=== PATIENT | female | born 1940 | race African-American/Black ===

== ENCOUNTER → 2016-08-04 | Outpatient (CLI) | payer MEDICARE, BC | LOC: OD 11:10 | PROVIDERS: ATTEND Physician Assistant Medical | DX: I31.3 Pericardial effusion (noninflammatory) (principal); R06.02 Shortness of breath | CPT/HCPCS: 71020 ==

== ENCOUNTER 2016-08-09 03:22 | Inpatient (IN) | payer MEDICARE, BC ==
[~2016-08-09 03:22] MED LIST: HYDRALAZINE HCL INJ/PF 20 MG/1 ML SDV IV ONE
--- NOTE | 2016-08-09 04:01 | ER Document Report ---
ED General - General Chief Complaint: Chest Pain > 30 Stated Complaint: SHORTNESS OF BREATH Notes: Patient is a 75-year-old female who presents with complaint of pain in her epigastric region. She says it does radiate towards her throat. No nausea. No vomiting. No fevers. She has felt somewhat short of breath. Shortness of breath has been ongoing for a long time. The pain is in her chest and abdomen and is new today. No fevers. No recent infections. No history of coronary disease. She does have a family history of coronary disease. She does have a history of chronic kidney disease. She is diabetic. She does have a history of poorly controlled hypertension. TRAVEL OUTSIDE OF THE [place] IN LAST 30 DAYS: No - Related Data Allergies/Adverse Reactions: Shellfish * Allergy (Severe, Verified 04/10/15 18:06) Anaphylaxis Penicillins Allergy (Unknown, Verified 04/10/15 18:06) Anaphylaxis prednisone [Prednisone] Allergy (Unknown, Verified 04/10/15 18:06) Sulfa (Sulfonamide Antibiotics) Allergy (Unknown, Verified 04/10/15 18:06) Anaphylaxis Past Medical History - Social History Smoking Status: Never Smoker Chew tobacco use (# tins/day): No Frequency of alcohol use: None Drug Abuse: None Family History: Reviewed & Not Pertinent Patient has suicidal ideation: No Patient has homicidal ideation: No - Past Medical History Cardiac Medical History: Reports: Hx Hypercholesterolemia, Hx Hypertension Denies: Hx Heart Murmur Pulmonary Medical History: Reports: Hx Bronchitis - 30 years ago, Hx Sleep Apnea Denies: Hx Respiratory Failure, Hx Tuberculosis Endocrine Medical History: Reports: Hx Diabetes Mellitus Type 2 Renal/ Medical History: Denies: Hx Peritoneal Dialysis GI Medical History: Reports: Hx Gastroesophageal Reflux Disease Musculoskeltal Medical History: Reports Hx Arthritis Psychiatric Medical History: Traumatic Medical History: Reports: Hx Fractures - left neck Past Surgical History: Reports: Hx Abdominal Surgery - colon resection, Hx Orthopedic Surgery - neck - Immunizations Hx Diphtheria, Pertussis, Tetanus Vaccination: No Review of Systems - Review of Systems Notes: My Normal Review Basic REVIEW OF SYSTEMS: CONSTITUTIONAL : Denies fever, chills, or sweats. Denies recent illness. EENT: Denies eye, ear, throat, or mouth pain or symptoms. Denies nasal or sinus congestion. CARDIOVASCULAR: Some chest pain RESPIRATORY: Denies cough, cold, or chest congestion. Denies shortness of breath, difficulty breathing, or wheezing. GASTROINTESTINAL: Upper gastric abdominal pain. Denies nausea, vomiting, or diarrhea. Denies constipation. Last BM: GENITOURINARY: Denies difficulty urinating, painful urination, burning, frequency, or blood in urine. MUSCULOSKELETAL: Denies neck or back pain or joint pain or swelling. SKIN: Denies rash or skin lesions. NEUROLOGICAL: Denies altered mental status or loss of consciousness. Denies headache. Denies weakness or paralysis or loss of use of either side. Denies problems with gait or speech. Denies sensory or motor loss. ALL OTHER SYSTEMS REVIEWED AND NEGATIVE. Physical Exam - Vital signs Vitals: Temp Pulse BP Pulse Ox 97.6 F 92 189/78 H 100 08/09/16 03:25 08/09/16 03:25 08/09/16 03:25 08/09/16 03:25 - Notes Notes: General Appearance: Well nourished, alert, cooperative, no acute distress, mild to moderate obvious discomfort. Vitals: reviewed, See vital signs table. Head: no swelling or tenderness to the head Eyes: PERRL, EOMI, Conjuctiva clear Mouth: No decreasd moisture Neck: Supple, no neck tenderness, No thyromegaly Lungs: No wheezing, No rales, No rhonci, No accessory muscle use, good air exchange bilaterally. Heart: Normal rate, Regular rythm, No murmur, no rub Abdomen: Normal BS, soft, No rigidity, mild abdominal tenderness to palpation, No guarding, no rebound, no abdominal masses, no organomegaly Extremities: strength 5/5 in all extremities, good pulses in all extremities, no swelling or tenderness in the extremities, no edema. Skin: warm, dry, appropriate color, no rash Neuro: speech clear, oriented x 3, normal affect, responds appropriately to questions. Course - Vital Signs Vital signs: Temp Pulse Resp BP Pulse Ox 97.6 F 92 17 149/66 H 95 08/09/16 03:25 08/09/16 03:25 08/09/16 05:44 08/09/16 05:44 08/09/16 05:44 - Laboratory Result Diagrams: 08/09/16 04:20 08/09/16 04:20 Laboratory results interpreted by me: 08/09/16 08/09/16 08/09/16 04:20 04:20 04:20 Hgb 10.3 L Hct 32.9 L MCHC 31.4 L RDW 17.2 H Seg Neutrophils % 86.2 H Lymphocytes % 9.2 L Monocytes % 2.9 L Potassium 5.2 H Chloride 114 H Carbon Dioxide 15 L BUN 39 H Creatinine 2.71 H Est GFR ( Amer) 21 L Est GFR (Non-Af Amer) 17 L Hemoglobin A1c % 6.3 H Creatine Kinase 142 H - EKG Interpretation by Me Additional EKG results interpreted by me: 08/09/16 04:14 EKG is reviewed and interpreted by me. EKG shows normal sinus rhythm with rate of [address] segment elevation or depression. No new T wave inversions. AL interval, QRS duration, QTC of vitals are within normal range. Old EKG available for comparison is from 04/10/2015. - Transfer of Care Notes: 08/09/16 05:03 Patient says with the nitro paste her pain is almost completely gone. She is feeling improved. 08/09/16 05:35 I did speak with Dr. Delatorre, finished cloth checker who has evaluated the patient in the past. He does not remember. Did a stress test on or not. He says he cannot access the records currently to be able tell me this. He recommends serial enzymes and workup until they can figure out whether or not she has actually had a stress test. He says if all that is found to be negative then he can probably follow up in the office. She does have hypertension. This may be playing a role in her chest pain. She says her hypertension is poorly controlled and this is one reason why she's been referred to Dr. Delatorre. I did give her nitroglycerin here. A notch her did help reduce her pressure some and her pain is improved significantly. Her EKG does not show any acute concerning findings. Her initial cardiac enzyme is negative. I did speak with the hospitalist, Dr. Cuevas, who agrees to accept the patient on behalf of her primary care doctor, Dr. Atkins. 08/09/16 06:27 I did reevaluate the patient and now she states she had some pain going to her back. I did check blood pressures in both upper extremities and there are within 10 systolic of each other. Pulses are equal. I do not suspect an aortic dissection; however, I felt it was appropriate to call the hospitalist just to make him aware that she does have some pain radiating to her back that she did not mention before. He does request that we just obtained a CT scan. Unable to do with contrast. CT scan was read and was negative for evidence of gross dissection. Because she does have a negative CT scan and has normal pulses in all 4 extremities and normal bilateral blood pressures I think aortic dissection is highly unlikely. I did call and speak with the hospitalist who agrees. She does have a pericardial effusion. She also had a similar pericardial fusion in March of last year on her Ct scan. This is most likely what is being followed with her echocardiograms by Dr. Delatorre. She has no evidence of cardiac tamponade on exam. Her pulse pressure is normal. Hospitalist agrees to admit to a Telemetry bed. Discharge - Discharge Clinical Impression: Hypertensive urgency Chest pain Qualifiers: Chest pain type: unspecified Qualified Code(s): R07.9 - Chest pain, unspecified Condition: Stable Disposition: ADMITTED OBSERVATION Admitting Provider: Milly Unit Admitted: Telemetry
[2016-08-09] MEDS ORDERED: MAG HYDROX/AL HYDROX/SIMETH SUSP 30 ML UDCUP PO ONE (04:10)
[2016-08-09] MEDS ORDERED: LIDOCAINE 2% VISCOUS SOLN 20 ML UDCUP PO ONE (04:10)
[2016-08-09] MEDS ORDERED: NITROGLYCERIN 2% OINTMENT 1 GM PACKET TP ONE (04:10)
[2016-08-09] MEDS ORDERED: METOCLOPRAMIDE HCL ORAL SOLN 10 MG/10 ML UDCUP PO ONE (04:10)
[2016-08-09 04:38] LABS: ABSOLUTE BASOPHILS # (AUTO) 0.1 10^3/uL (0.0-0.2); ABSOLUTE LYMPHOCYTES (AUTO) 0.7 10^3/uL (0.5-4.7); ABSOLUTE MONOCYTES (AUTO) 0.2 10^3/uL (0.1-1.4); ABSOLUTE NEUT (AUTO) 6.3 10^3/uL (1.7-8.2); BASOPHILS % (AUTO) 1.4 % (0-2); EOSINOPHILS % (AUTO) 0.3 % (0-6); HEMATOCRIT 32.9 % (36.0-47.0); HEMOGLOBIN 10.3 g/dL (12.0-15.5); LYMPHOCYTES % (AUTO) 9.2 % (13-45); MEAN CORPUSCULAR HEMOGLOBIN 27.1 pg (27.0-33.4); MEAN CORPUSCULAR HGB CONC 31.4 g/dL (32.0-36.0); MEAN CORPUSCULAR VOLUME 86 fl (80-97); MONOCYTES % (AUTO) 2.9 % (3-13); RED BLOOD COUNT 3.81 10^6/uL (3.72-5.28); RED CELL DISTRIBUTION WIDTH 17.2 % (11.5-14.0); SEGMENTED NEUTROPHILS % (AUTO) 86.2 % (42-78); WHITE BLOOD COUNT 7.3 10^3/uL (4.0-10.5)
[2016-08-09 04:57] LABS: ALANINE AMINOTRANSFERASE 27 U/L (9-52); ALBUMIN 4.2 g/dL (3.5-5.0); ALKALINE PHOSPHATASE 90 U/L (38-126); ANION GAP 16 (5-19); ASPARTATE AMINO TRANSFERASE 22 U/L (14-36); BILIRUBIN,TOTAL 0.6 mg/dL (0.2-1.3); BLOOD UREA NITROGEN 39 mg/dL (7-20); CALCIUM 9.5 mg/dL (8.4-10.2); CARBON DIOXIDE 15 mmol/L (22-30); CHLORIDE 114 mmol/L (98-107); CREATINE KINASE 142 U/L (30-135); CREATININE RESULT 2.71 mg/dL (0.52-1.25); GLUCOSE 109 mg/dL (75-110); POTASSIUM 5.2 mmol/L (3.6-5.0); SODIUM 144.9 mmol/L (137-145); TOTAL PROTEIN 7.1 g/dL (6.3-8.2)
[2016-08-09] MEDS ORDERED: MORPHINE SULFATE 10 MG/ML INJ IV ONE ×2 (05:03→05:47)
[2016-08-09] MEDS ORDERED: ASPIRIN 325 MG TABLET PO ONE (05:14)
[2016-08-09 05:21] LABS: TROPONIN I < 0.012 ng/mL
[2016-08-09] MEDS ORDERED: DEXTROSE 40% GEL 15 GM TUBE PO PRN ×4 (05:37→05:47)
[2016-08-09] MEDS ORDERED: DEXTROSE 50%-WATER 25 GM/50 ML DISP.SYRIN IV PRN ×3 (05:37→05:47)
[2016-08-09] MEDS ORDERED: GLUCAGON,HUMAN RECOMB 1 MG INJ IM PRN (05:37)
[2016-08-09] MEDS ORDERED: ACETAMINOPHEN 325 MG TABLET PO PRN (05:38)
[2016-08-09] MEDS ORDERED: OMEPRAZOLE 40 MG PO SCH (05:45)
[2016-08-09] MEDS ORDERED: 1/2 NORMAL SALINE 1,000 ML IV ONE (05:45)
[2016-08-09] MEDS ORDERED: KETOROLAC TROMETHAMINE INJ/PF 30 MG/1 ML SDV IV PRN (06:23)
--- NOTE | 2016-08-09 07:31 | PDOC H&P ---
History of Present Illness Admission Date/PCP: 08/09/16 06:19 Patient complains of: Chest and abdominal pain with nausea History of Present Illness: SOPHY GOMEZ is a 75 year old female with a complex past medical history of stage IV chronic kidney disease, chronic pericardial effusion, diabetes, hiatal hernia, hypertension and obstructive sleep apnea. Who presents the emergency room 1 hour after being awoken from sleep with abdominal pain that radiates to the back and to the chest, not associated with shortness of breath diaphoresis or palpitations but had urge to defecate nausea with vomiting of gastric content only. She states her GERD has been well controlled though constipation has been chronic. Denying new medications. Admits to recent cardiac stress test within the month but is unaware of results. Workup in the emergency room finds hypertensive urgency with the systolic blood pressure of 200, a CT without contrast shows a persistent moderate pericardial effusion, hiatal hernia and moderate fecal retention without evidence of aortic dissection. Past Medical History Cardiac Medical History: Reports: Hyperlipidema, Hypertension Denies: Heart Murmur Pulmonary Medical History: Reports: Bronchitis - 30 years ago, Sleep Apnea Denies: Respiratory Failure, Tuberculosis Endocrine Medical History: Reports: Diabetes Mellitus Type 2 Malignancy Medical History: Reports: Colorectal Cancer GI Medical History: Reports: Gastroesophageal Reflux Disease Musculoskeltal Medical History: Reports: Arthritis Psychiatric Medical History: Hematology: Reports: Anemia Denies: Hemophilia, Sickle Cell Disease Past Surgical History Past Surgical History: Reports: Orthopedic Surgery - neck, Other - Partial colon resection 2013 Denies: Amputation Social History Information Source: Patient Lives with: Family Smoking Status: Never Smoker Frequency of Alcohol Use: None Hx Recreational Drug Use: No Hx Prescription Drug Abuse: No - Advance Directive Resuscitation Status: Full Code Family History Family History: DM, Hypertension Parental Family History Reviewed: Yes Children Family History Reviewed: Yes Sibling(s) Family History Reviewed.: Yes Medication/Allergy Home Medications: Clonidine HCl [Catapres 0.1 mg Tablet] 0.05 mg PO TID 06/09/11 Glipizide [Glipizide ER] 5 mg PO DAILY 06/09/11 Hydrochlorothiazide [Hydrodiuril 25 mg Tablet] 25 mg PO QAM 06/09/11 Vitamin B-12 5,000 units PO DAILY 06/09/11 D-1000 Plus 5,000 units PO DAILY 06/16/11 Omeprazole [Prilosec 20 mg Capsule] 40 mg PO DAILY 11/18/12 Ascorbic Acid [Vitamin C] 1 tab PO DAILY 03/20/14 Ferrous Sulfate [Feosol] 325 mg PO DAILY 03/20/14 Nifedipine [Adalat CC 90 mg Tablet] 90 mg PO BID #60 tablet.sa 03/22/14 Atorvastatin Calcium 10 mg PO DAILY 08/09/16 Doxazosin Mesylate [Doxazosin Mesylate] 2 mg PO ACHS 08/09/16 Hydralazine HCl 50 mg PO TID 08/09/16 Allergies/Adverse Reactions: Shellfish * Allergy (Severe, Verified 04/10/15 18:06) Anaphylaxis Penicillins Allergy (Unknown, Verified 04/10/15 18:06) Anaphylaxis prednisone [Prednisone] Allergy (Unknown, Verified 04/10/15 18:06) Sulfa (Sulfonamide Antibiotics) Allergy (Unknown, Verified 04/10/15 18:06) Anaphylaxis Review of Systems Constitutional: ABSENT: anorexia, chills, fatigue, fever(s), headache(s), night sweats, weakness Eyes: ABSENT: visual disturbances Ears: ABSENT: hearing changes Cardiovascular: ABSENT: chest pain, dyspnea on exertion, edema, orthropnea, palpitations Respiratory: ABSENT: cough, hemoptysis Gastrointestinal: PRESENT: abdominal pain, bloating, constipation, heartburn, nausea. ABSENT: coffee ground emesis, dysphagia, hematemesis Genitourinary: ABSENT: dysuria, hematuria Musculoskeletal: ABSENT: joint swelling Integumentary: ABSENT: rash, wounds Neurological: ABSENT: abnormal gait, abnormal speech, confusion, dizziness, focal weakness, syncope Psychiatric: ABSENT: anxiety, depression, homidical ideation, suicidal ideation Endocrine: ABSENT: cold intolerance, heat intolerance, polydipsia, polyuria Hematologic/Lymphatic: ABSENT: easy bleeding, easy bruising Physical Exam Vital Signs: Temp Pulse Resp BP Pulse Ox 97.6 F 92 17 149/66 H 95 08/09/16 03:25 08/09/16 03:25 08/09/16 05:44 08/09/16 05:44 08/09/16 05:44 General appearance: PRESENT: cooperative, mild distress. ABSENT: disheveled, hard of hearing, morbidly obese, obese, severe distress Head exam: PRESENT: atraumatic, normocephalic Eye exam: PRESENT: conjunctiva pink, EOMI, PERRLA. ABSENT: scleral icterus Ear exam: PRESENT: normal external ear exam Mouth exam: PRESENT: moist, tongue midline Neck exam: ABSENT: carotid bruit, JVD, lymphadenopathy, thyromegaly Respiratory exam: PRESENT: clear to auscultation jose. ABSENT: rales, rhonchi, wheezes Cardiovascular exam: PRESENT: RRR. ABSENT: diastolic murmur, rubs, systolic murmur Pulses: PRESENT: normal dorsalis pedis pul Vascular exam: PRESENT: normal capillary refill GI/Abdominal exam: PRESENT: distended, hyperactive bowel sounds, soft. ABSENT: ascites, organolmegaly Rectal exam: PRESENT: deferred Extremities exam: PRESENT: +1 edema Neurological exam: PRESENT: alert, awake, oriented to person, oriented to place , oriented to time, oriented to situation, CN II-XII grossly intact. ABSENT: motor sensory deficit Psychiatric exam: PRESENT: appropriate affect, normal mood. ABSENT: homicidal ideation, suicidal ideation Skin exam: PRESENT: dry, intact, warm. ABSENT: cyanosis, rash Results Impressions: Chest X-Ray 08/09/16 04:11 IMPRESSION: Cardiomegaly. No acute infiltrates. Other findings as noted above Abdomen/Pelvis CT 08/09/16 05:50 IMPRESSION: 1. GALLSTONES. 2. COLONIC DIVERTICULOSIS. NO CT FINDINGS OF ACUTE DIVERTICULITIS. 3. OTHER CHRONIC FINDINGS ABOVE. NO OTHER SIGNIFICANT OR ACUTE PROCESS IN THE ABDOMEN OR PELVIS. Chest CT 08/09/16 05:50 IMPRESSION: SCATTERED ATELECTASIS/SCARRING. MODERATE PERICARDIAL EFFUSION. HIATAL HERNIA. NO ACUTE FINDING ON NON-CONTRASTED CHEST CT. Assessment & Plan - Diagnosis (1) Hypertensive urgency Is this a current diagnosis for this admission?: YesPlan: Systolic pressure greater than 200 has responded well to Nitropaste and clonidine, continue when necessary hydralazine, symptomatically management and home medication regiment. No evidence of acute congestive heart failure on imaging. (2) Chest pain Qualifiers: Chest pain type: unspecified Qualified Code(s): R07.9 - Chest pain, unspecified Is this a current diagnosis for this admission?: YesPlan: Unclear cause as she has several reasons for chest and abdominal pain pain including possible pericarditis, large hiatal hernia, hypertensive urgency with coronary artery disease equivalents, will obtain serial cardiac enzymes, obtain recent outpatient cardiac stress test. Optimize blood pressure, GI cocktail, lactulose and symptomatically management. (3) Pericardial effusion Plan: No EKG changes, JVD, normal pulse pressure appearing chronic though will Evaluate ESR, and obtain cardiology consult (4) Hiatal hernia Plan: Proton pump inhibitor and symptomatically management (5) Constipation Is this a current diagnosis for this admission?: YesPlan: Patient admits this is chronic and challenging to control, encourage by mouth fluids, Trial mineral oil enema and lactulose and reevaluation. (6) Hyperkalemia Plan: No peak T waves possibly secondary to RTA, trial Lactulose and enema with reevaluation chemistry (7) Renal tubular acidosis, type IV Plan: Urinalysis ordered and pending, given metabolic acidosis and stage IV chronic kidney disease with dialysis planned will obtain nephrology consult (8) Diabetes Qualifiers: Diabetes mellitus type: type 2 Is this a current diagnosis for this admission?: YesPlan: Appears well controlled will obtain an A1c and continue sliding scale insulin when necessary - Time Time Spent: 50 to 70 Minutes
[2016-08-09] MEDS ORDERED: CLONIDINE HCL 0.1 MG TABLET PO ONE (07:45)
[2016-08-09] MEDS ORDERED: LACTULOSE SYRUP 20 GM/30 ML UDCUP PO ONE (07:45)
[2016-08-09] MEDS ORDERED: MINERAL OIL ENEMA 133 ML PR ONE (07:45)
[2016-08-09 07:52] LABS: TROPONIN I < 0.012 ng/mL
[2016-08-09 08:04] LABS: APPEARANCE,URINE CLEAR; BILIRUBIN,URINE NEGATIVE (NEGATIVE); GLUCOSE, URINE NEGATIVE (NEGATIVE); KETONES,URINE NEGATIVE (NEGATIVE); LEUKOCYTE ESTERASE,URINE NEGATIVE (NEGATIVE); NITRITE,URINE NEGATIVE (NEGATIVE); PROTEIN,URINE >=500 mg/dL (NEGATIVE); URINE SPECIFIC GRAVITY 1.009; UROBILINOGEN,URINE NEGATIVE mg/dL (<2.0)
[2016-08-09] MEDS ORDERED: 1/2 NORMAL SALINE 1,000 ML IV PRN (08:49)
--- NOTE | 2016-08-09 09:26 | EKG REPORT ---
SEVERITY:- BORDERLINE ECG - SINUS RHYTHM LOW VOLTAGE IN FRONTAL LEADS BORDERLINE R WAVE PROGRESSION, ANTERIOR LEADS : Confirmed by: Rosalba Delatorre 09-Aug-2016 09:26:01
[2016-08-09] MEDS: HEPARIN SOD (PORCINE) 5,000 UNIT/ML 1 ML SYRINGE SUBCUT SCH ×3 (10:14→21:08)
[2016-08-09] MEDS: LANSOPRAZOLE 30 MG TAB.RAP.DR PO SCH (10:21)
[2016-08-09] MEDS: NIFEDIPINE 30 MG TAB.ER.24 PO SCH ×2 (10:22→21:10)
[2016-08-09] MEDS ORDERED: DOXAZOSIN MESYLATE 2 MG TABLET PO SCH ×2 (11:00→22:00)
--- NOTE | 2016-08-09 12:34 | PDOC CONSULTATION ---
Consultation Consult Date: 08/09/16 Attending physician:: VIOLETTE FISCHER Consult reason:: Chest pain History of Present Illness Admission Date/PCP: 08/09/16 08:58 Patient complains of: Chest pain History of Present Illness: SOPHY GOMEZ is a 75 year old female with a complex past medical history of stage IV chronic kidney disease, chronic pericardial effusion, diabetes, hiatal hernia, hypertension and obstructive sleep apnea. Who presents the emergency room 1 hour after being awoken from sleep with abdominal pain that radiates to the back and to the chest, not associated with shortness of breath diaphoresis or palpitations but had urge to defecate, associated nausea with vomiting of gastric content only. She states her GERD has been well controlled though constipation has been chronic. Denying new medications. Admits to recent cardiac stress test within the month but is unaware of results. Workup in the emergency room finds hypertensive urgency with the systolic blood pressure of 200, a CT without contrast shows a persistent moderate pericardial effusion, hiatal hernia and moderate fecal retention without evidence of aortic dissection. This history was reviewed, supplemented and agree with the above. Patient did have a recent nuclear stress test which was negative for any significant ischemia. Patient also had a recent 2-D echocardiogram which showed normal LVEF, moderate LVH, grade 2 diastolic dysfunction, mild mitral and trace aortic incompetence. It also showed small circumferential pericardial effusion without any evidence of tamponade. Past Medical History Cardiac Medical History: Reports: Hyperlipidema, Hypertension Denies: Heart Murmur Pulmonary Medical History: Reports: Bronchitis - 30 years ago, Sleep Apnea Denies: Respiratory Failure, Tuberculosis Endocrine Medical History: Reports: Diabetes Mellitus Type 2 Malignancy Medical History: Reports: Colorectal Cancer GI Medical History: Reports: Gastroesophageal Reflux Disease Musculoskeltal Medical History: Reports: Arthritis Psychiatric Medical History: Denies: Depression Hematology: Reports: Anemia Denies: Hemophilia, Sickle Cell Disease Past Surgical History Past Surgical History: Reports: Orthopedic Surgery - neck, Other - Partial colon resection 2013 Denies: Amputation Social History Information Source: Patient Lives with: Family Smoking Status: Never Smoker Frequency of Alcohol Use: None Hx Recreational Drug Use: No Hx Prescription Drug Abuse: No - Advance Directive Resuscitation Status: Full Code Family History Family History: DM, Hypertension Parental Family History Reviewed: Yes Children Family History Reviewed: Yes Sibling(s) Family History Reviewed.: Yes - Negative for premature coronary artery disease or sudden cardiac in the family amongst first degree relatives. Medication/Allergy Home Medications: Atorvastatin Calcium [Lipitor 10 mg Tablet] 10 mg PO DAILY 08/09/16 Clonidine HCl [Catapres 0.1 mg Tablet] 0.1 mg PO DAILY 08/09/16 Doxazosin Mesylate [Cardura 2 mg Tablet] 2 mg PO QHS 08/09/16 Hydralazine HCl [Apresoline 50 mg Tablet] 50 mg PO Q8 08/09/16 Nifedipine [Procardia XL 30 mg Tablet] 90 mg PO Q12 08/09/16 Omeprazole 20 mg PO DAILY 08/09/16 Sodium Bicarbonate [Sodium Bicarbonate 650 mg Tablet] 650 mg PO DAILY 08/09/16 Allergies/Adverse Reactions: Shellfish * Allergy (Severe, Verified 04/10/15 18:06) Anaphylaxis Penicillins Allergy (Unknown, Verified 04/10/15 18:06) Anaphylaxis prednisone [Prednisone] Allergy (Unknown, Verified 04/10/15 18:06) Sulfa (Sulfonamide Antibiotics) Allergy (Unknown, Verified 04/10/15 18:06) Anaphylaxis Review of Systems Review of Systems: Please see history of present illness and past medical history as wall. Constitutional: No fever or chills reported. Head : No recent chronic headaches, recent head injury. Eyes: No recent eye pain, diplopia, redness, discharge, acute visual changes. Ears: No recent chronic ear pain, acute hearing loss, ear discharge. Oral cavity: No recent ulcerations, bleeding, oral cavity discomfort. Neck: No recent acute neck pain reported. Hematologic: No recent easy bruising or bleeding or hematologic malignancy reported. Lymphatic: No recent lymphatic malignancy, chronic lymphadenopathy reported yet Cardiovascular system review: See history of present illness. Chest discomfort as above. No sustained palpitations, recent syncope or near syncope. Respiratory system review: No recent chronic cough, hemoptysis, blood clots in the lungs reported. Mild Shortness of breath on exertion Gastrointestinal system review: Positive for epigastric and upper abdominal discomfort off and on but no hematemesis, melena, recent change in bowel habits. Noted nausea and vomiting. Genitourinary system review: No recent acute or chronic hematuria, flank pain, UTI etc. reported. History of renal failure and chronic kidney disease. Skin system review: Negative for any recent abnormal bruising, no rash, no pruritus reported. Neurologic: No prior history of strokes, mini strokes, seizure disorder. Psychologic: No history of major psychosis or depression reported. Musculoskeletal: Minor aches and pains reported. No acute joint swelling reported. Endocrine: No recent polyuria, polydipsia, recent heat or cold intolerance. Physical Exam Vital Signs: Temp Pulse Resp BP Pulse Ox 98.6 F 88 18 179/68 H 100 08/09/16 09:07 08/09/16 09:10 08/09/16 09:07 08/09/16 09:10 08/09/16 09:07 Intake & Output 08/08/16 08/09/16 08/10/16 06:59 06:59 06:59 Weight 76.9 kg Exam: GEN: NAD, patient alert oriented x3. Appearance and grooming WNL HEENT : Eyes: GLORIA, Ears: No significant abnormalities, Nose: No significant abnormalities. normocephalic atraumatic. Flat midface (-), Receding chin (-) ORAL : Mallampati class III, highly arched palate (-) Tonsils: Not enlarged. NECK: no thyromegaly, no masses, trachea is central, JVD is not elevated, carotids are 2+ with bruit (-) RESP: lungs clear to auscultation bilaterally, no rales, wheezes or rhonchi., nonlabored, no use of accessory muscles of respiration CV: NL S1 and S2. 2/6 ejection systolic murmur noted in the aortic area and left sternal border. 1/6 pansystolic murmur noted at the apex. no S3, no S4 noted. No rub noted., gallops, rubs, clicks GI: abd NT to palpation, no masses, bowel sounds present, no guarding or rigidity noted. EXT: no clubbing, (-) cyanosis, edema (-), perpheral pulses diminished (+) MUSC/SKEL: no acute joint swelling noted. Muscle strength is generally intact. NEURO: no tremors. no significant focal neurological deficits are noted., sensation grossly intact, AO x 3 PSYCH: NL mood and affect. judgment and insight noted to be intact SKIN: No significant rashes noted. No ulcerations noted. Results EKG Comments: Sinus rhythm, low voltage QRS complex frontal lead, nonprogression of R-wave anterior precordial lead. No acute ST segment changes noted. Impressions: Chest X-Ray 08/09/16 04:11 IMPRESSION: Cardiomegaly. No acute infiltrates. Other findings as noted above Abdomen/Pelvis CT 08/09/16 05:50 IMPRESSION: 1. GALLSTONES. 2. COLONIC DIVERTICULOSIS. NO CT FINDINGS OF ACUTE DIVERTICULITIS. 3. OTHER CHRONIC FINDINGS ABOVE. NO OTHER SIGNIFICANT OR ACUTE PROCESS IN THE ABDOMEN OR PELVIS. Chest CT 08/09/16 05:50 IMPRESSION: SCATTERED ATELECTASIS/SCARRING. MODERATE PERICARDIAL EFFUSION. HIATAL HERNIA. NO ACUTE FINDING ON NON-CONTRASTED CHEST CT. Assessment & Plan - Diagnosis (1) Chest pain Qualifiers: Chest pain type: unspecified Qualified Code(s): R07.9 - Chest pain, unspecified Is this a current diagnosis for this admission?: Yes (2) Hypertensive urgency Is this a current diagnosis for this admission?: Yes (3) Pericardial effusion Is this a current diagnosis for this admission?: Yes (4) Hyperkalemia Is this a current diagnosis for this admission?: Yes - Notes Notes: Chest pain was recently evaluated with a nuclear stress test and was noted to be negative. Agree with VT rule out protocol. Will cycle cardiac enzymes and EKGs. If patient remains stable without any significant cardiac enzyme elevation or EKG changes, patient could be discharged with regular follow-up. Chest pain possibly related to atelectasis. Hypertension with hypertensive urgency: Agree with antihypertensive regimen. Will consider optimizing it. Sleep apnea syndrome: Patient was noted to have severe obstructive sleep apnea on recent sleep study. Patient scheduled for a titration study. This should help with control of blood pressure. Pericardial effusion: Clinically no evidence of tamponade. Could be related to chronic renal failure. Patient has a follow-up echocardiogram scheduled in the office. Hyperkalemia: Patient will benefit from low potassium and renal diet. Hopefully this can be taken care off through Kayexalate or other new medication , nephrology is following the patient. Chronic kidney disease: Probably stage IV. Patient being followed by lipcoat sprayer. - Time Time Spent: 30 to 50 Minutes - CODE STATUS was discussed, patient remains full code. Surrogate decision-maker unchanged. Multiple medical problems were addressed.More than 50% of the time spent coordinating care, discussing management plans with involved caregivers. Management plans discussed with involved personnels. Medical decision making was of moderate complexity.
--- NOTE | 2016-08-09 13:02 | PDOC PROGRESS REPORT ---
Subjective Progress Note for:: 08/09/16 Subjective:: The patient seen this morning on rounds around 8:30. History obtained from the patient and her son. Apparently the patient was woken up last night with epigastric pain and severe retrosternal burning. She had an episode of diarrhea and then started vomiting. Being concerned about those symptoms she was taken to the emergency room where she was evaluated and a consideration has been made for possible chest pain. She had nitroglycerin placed on her chest and had a CT of the chest and CT of the abdomen. Physical Exam Vital Signs: Temp Pulse Resp BP Pulse Ox 98.9 F 86 16 170/55 H 99 08/09/16 11:14 08/09/16 11:14 08/09/16 11:14 08/09/16 11:14 08/09/16 11:14 Intake & Output 08/08/16 08/09/16 08/10/16 06:59 06:59 06:59 Weight 76.9 kg General appearance: PRESENT: mild distress Head exam: PRESENT: atraumatic Eye exam: PRESENT: conjunctival injection Neck exam: ABSENT: carotid bruit Respiratory exam: PRESENT: rhonchi Cardiovascular exam: PRESENT: +S1, +S2 Pulses: PRESENT: +1 pedal pulses bilateral Vascular exam: PRESENT: normal capillary refill GI/Abdominal exam: PRESENT: Mcwilliams's sign, tenderness Additonal comments: Significant tenderness on palpation in the epigastrium and right upper quadrant with a positive Mcwilliams sign Extremities exam: PRESENT: full ROM Musculoskeletal exam: PRESENT: ambulatory Neurological exam: PRESENT: alert, awake, oriented to time, oriented to situation Psychiatric exam: PRESENT: anxious Results Impressions: Chest X-Ray 08/09/16 04:11 IMPRESSION: Cardiomegaly. No acute infiltrates. Other findings as noted above Abdomen/Pelvis CT 08/09/16 05:50 IMPRESSION: 1. GALLSTONES. 2. COLONIC DIVERTICULOSIS. NO CT FINDINGS OF ACUTE DIVERTICULITIS. 3. OTHER CHRONIC FINDINGS ABOVE. NO OTHER SIGNIFICANT OR ACUTE PROCESS IN THE ABDOMEN OR PELVIS. Chest CT 08/09/16 05:50 IMPRESSION: SCATTERED ATELECTASIS/SCARRING. MODERATE PERICARDIAL EFFUSION. HIATAL HERNIA. NO ACUTE FINDING ON NON-CONTRASTED CHEST CT. Assessment & Plan - Diagnosis (1) Chest pain Qualifiers: Chest pain type: unspecified Qualified Code(s): R07.9 - Chest pain, unspecified Is this a current diagnosis for this admission?: YesPlan: Most probably noncardiac. We'll complete his series of enzymes (2) Cholelithiasis Qualifiers: Cholelithiasis location: gallbladder Cholecystitis presence: with cholecystitis Is this a current diagnosis for this admission?: YesPlan: We'll place patient on nothing by mouth status versus clear liquids. We'll consult surgery. The consideration for and right upper quadrant ultrasound has been done (3) Acute cholecystitis due to biliary calculus Is this a current diagnosis for this admission?: YesPlan: We'll place patient on nothing by mouth status and start antibiotics (4) Renal failure (ARF), acute on chronic Is this a current diagnosis for this admission?: YesPlan: We'll start IV fluids and see if the numbers improved with hydration (5) Diabetes Qualifiers: Diabetes mellitus type: type 2 Diabetes mellitus complication status: with kidney complications Chronic kidney disease stage: stage 3 (moderate) Is this a current diagnosis for this admission?: YesPlan: We will obtain Accu-Cheks and cover with insulin. The patient had a acetone breath. We will consider obtaining acetone levels.
[2016-08-09] MEDS: INSULIN LISPRO 100 UNIT/ML 3 ML VIAL SUBCUT PRN ×2 (13:05→17:18)
[2016-08-09] MEDS: CLONIDINE HCL 0.1 MG TABLET PO SCH ×2 (13:06→21:10)
[2016-08-09] MEDS: HYDRALAZINE HCL 50 MG TABLET PO SCH ×2 (13:06→21:09)
--- NOTE | 2016-08-09 13:16 | PDOC CONSULTATION ---
Consultation Consult Date: 08/09/16 Consult reason:: CKD stage IV with chest and abdominal pain History of Present Illness Admission Date/PCP: 08/09/16 08:58 History of Present Illness: SOPHY GOMEZ is a 75 year old female with a complex past medical history of stage IV chronic kidney disease with a base creatinine of 2.5-2.8, chronic pericardial effusion, diabetes, hiatal hernia, hypertension and obstructive sleep apnea , presented to the emergency room 1 hour after being awoken from sleep with chest and abdominal pain that radiates to the back and to the throat , not associated with shortness of breath diaphoresis or palpitations but had urge to defecate, associated nausea with vomiting. She states that the pain was constant with no precipitating or relieving factors even though she latest states that breathing heart was making it worse. The pain is only relieved 2-3 hours since its inception after she was treated with nitroglycerin patch and narcotic pain medications according to the patient. Currently patient is quite comfortable and the pain is gone. She states her GERD has been well controlled though constipation has been chronic. Denying new medications. Admits to recent cardiac stress test within the month but is unaware of results. Workup in the emergency room finds hypertensive urgency with the systolic blood pressure of 200, a CT without contrast shows a persistent moderate pericardial effusion, hiatal hernia and moderate fecal retention without evidence of aortic dissection. Dr. Delatorre, central station operator is seeing the patient. Patient did have a recent nuclear stress test which was negative for any significant ischemia. Patient also had a recent 2-D echocardiogram which showed normal LVEF, moderate LVH, grade 2 diastolic dysfunction, mild mitral and trace aortic incompetence. It also showed small circumferential pericardial effusion without any evidence of tamponade. Past Medical History Cardiac Medical History: Reports: Hyperlipidemia, Hypertension-primary Denies: Heart Murmur Pulmonary Medical History: Reports: Bronchitis - 30 years ago, Sleep Apnea Denies: Respiratory Failure, Tuberculosis Endocrine Medical History: Reports: Diabetes Mellitus Type 2 Renal/ Medical History: Reports: Chronic Kidney Disease Stage IV - With base creatinine of 2.5-2.8. Denies: Benign Prostatic Hyperplasia Malignancy Medical History: Reports: Colorectal Cancer GI Medical History: Reports: Gastroesophageal Reflux Disease Musculoskeltal Medical History: Reports: Arthritis Denies: Rheumatoid Arthritis, Systemic Lupus Erythematosus Psychiatric Medical History: Denies: Depression Past Surgical History Past Surgical History: Reports: Orthopedic Surgery - neck, Other - Partial colon resection 2014 Social History Lives with: Family Smoking Status: Never Smoker Frequency of Alcohol Use: None Hx Recreational Drug Use: No Hx Prescription Drug Abuse: No - Advance Directive Resuscitation Status: Full Code Family History Parental Family History Reviewed: Yes - Negative for ESRD and bands. Children Family History Reviewed: No Sibling(s) Family History Reviewed.: No Medication/Allergy Home Medications: Atorvastatin Calcium [Lipitor 10 mg Tablet] 10 mg PO DAILY 08/09/16 Clonidine HCl [Catapres 0.1 mg Tablet] 0.1 mg PO DAILY 08/09/16 Doxazosin Mesylate [Cardura 2 mg Tablet] 2 mg PO QHS 08/09/16 Hydralazine HCl [Apresoline 50 mg Tablet] 50 mg PO Q8 08/09/16 Nifedipine [Procardia XL 30 mg Tablet] 90 mg PO Q12 08/09/16 Omeprazole 20 mg PO DAILY 08/09/16 Sodium Bicarbonate [Sodium Bicarbonate 650 mg Tablet] 650 mg PO DAILY 08/09/16 Allergies/Adverse Reactions: Shellfish * Allergy (Severe, Verified 04/10/15 18:06) Anaphylaxis Penicillins Allergy (Unknown, Verified 04/10/15 18:06) Anaphylaxis prednisone [Prednisone] Allergy (Unknown, Verified 04/10/15 18:06) Sulfa (Sulfonamide Antibiotics) Allergy (Unknown, Verified 04/10/15 18:06) Anaphylaxis Review of Systems Review of Systems: Constitutional: PRESENT: as per HPI. ABSENT: chills, fever(s), headache(s), weight gain, weight loss Eyes: ABSENT: visual disturbances Ears: ABSENT: hearing changes Cardiovascular: ABSENT: dyspnea on exertion, edema, orthropnea, palpitations Respiratory: ABSENT: cough, hemoptysis Gastrointestinal: ABSENT: hematemesis, hematochezia, Genitourinary: ABSENT: dysuria, hematuria Musculoskeletal: ABSENT: joint swelling Integumentary: ABSENT: rash, wounds Neurological: ABSENT: abnormal gait, abnormal speech, confusion, dizziness, focal weakness, syncope Psychiatric: ABSENT: anxiety, depression, homicidal ideation, suicidal ideation Endocrine: ABSENT: cold intolerance, heat intolerance, menstrual abnormalities, polydipsia, polyuria Hematologic/Lymphatic: ABSENT: easy bleeding, easy bruising, lymphadenopathy Physical Exam Vital Signs: Temp Pulse Resp BP Pulse Ox 98.9 F 86 16 170/55 H 99 08/09/16 11:14 08/09/16 11:14 08/09/16 11:14 08/09/16 11:14 08/09/16 11:14 Intake & Output 08/08/16 08/09/16 08/10/16 06:59 06:59 06:59 Weight 76.9 kg General appearance: PRESENT: no acute distress Eye exam: PRESENT: EOMI, PERRLA. ABSENT: nystagmus Mouth exam: PRESENT: moist, neck supple Neck exam: ABSENT: lymphadenopathy, meningismus, tenderness, thyromegaly, tracheal deviation Respiratory exam: PRESENT: clear to auscultation jose, symmetrical, unlabored. ABSENT: crackles Cardiovascular exam: PRESENT: +S1, +S2, systolic murmur GI/Abdominal exam: ABSENT: ascites, diminished bowel sounds, distended, firm, guarding, organomegaly, soft, tenderness Extremities exam: PRESENT: pedal edema Neurological exam: PRESENT: alert, awake, oriented to person, oriented to place , oriented to time Skin exam: ABSENT: cyanosis, erythema, mottled, rash Results Impressions: Chest X-Ray 08/09/16 04:11 IMPRESSION: Cardiomegaly. No acute infiltrates. Other findings as noted above Abdomen/Pelvis CT 08/09/16 05:50 IMPRESSION: 1. GALLSTONES. 2. COLONIC DIVERTICULOSIS. NO CT FINDINGS OF ACUTE DIVERTICULITIS. 3. OTHER CHRONIC FINDINGS ABOVE. NO OTHER SIGNIFICANT OR ACUTE PROCESS IN THE ABDOMEN OR PELVIS. Chest CT 08/09/16 05:50 IMPRESSION: SCATTERED ATELECTASIS/SCARRING. MODERATE PERICARDIAL EFFUSION. HIATAL HERNIA. NO ACUTE FINDING ON NON-CONTRASTED CHEST CT. Assessment & Plan - Diagnosis (1) CKD (chronic kidney disease) stage 4, GFR 15-29 ml/min Plan: CKD stage IV with a base creatinine of 2.5-2.8. She is currently baseline. She does not have any indications for renal replacements even though she has mild hyperkalemia and gap acidosis which part of her current status of her CKD. We will continue to monitor. (2) Chest pain Qualifiers: Chest pain type: unspecified Qualified Code(s): R07.9 - Chest pain, unspecified Is this a current diagnosis for this admission?: YesPlan: As per Red Atkins MD and cardiology. (3) Constipation Is this a current diagnosis for this admission?: YesPlan: Needs treatment. As per Red Atkins MD. (4) Diabetes Qualifiers: Diabetes mellitus type: type 2 Diabetes mellitus complication status: with kidney complications Chronic kidney disease stage: stage 3 (moderate) Is this a current diagnosis for this admission?: Yes (5) Hypertensive urgency Is this a current diagnosis for this admission?: YesPlan: She has severe hypertension on presentation with her acute crisis. As the crisis has gotten better her blood pressures also improved. Continue current medications and see if she needs further titration. (6) Pericardial effusion Is this a current diagnosis for this admission?: YesPlan: Moderate and chronic. No evidence of cardiac tamponade. Management as per Dr. Delatorre. (7) Metabolic acidosis Plan: Gap acidosis. Likely secondary to diabetes and CKD. Start bicarb. Monitor.
[2016-08-09 14:44] LABS: CREATINE KINASE MB 0.96 ng/mL (<4.55)
[2016-08-09 14:46] LABS: TROPONIN I < 0.012 ng/mL
[2016-08-09] MEDS: CIPROFLOXACIN 200 MG/D5W RTU 200 MG/100 ML RTUPB IV SCH (15:24)
[2016-08-09] MEDS: METRONIDAZOLE 500 MG/NS RTU 100 ML IV SCH (17:18)
[2016-08-09] MEDS: HYDRALAZINE HCL INJ/PF 20 MG/1 ML SDV IV PRN (18:36)
[2016-08-09 20:32] LABS: CREATINE KINASE MB 1.04 ng/mL (<4.55)
[2016-08-09 20:35] LABS: TROPONIN I < 0.012 ng/mL
[2016-08-09] MEDS: SODIUM BICARBONATE 650 MG TABLET PO SCH (21:09)
[2016-08-09] MEDS ORDERED: ATORVASTATIN CALCIUM 10 MG TABLET PO SCH (22:00)
[2016-08-10] MEDS: METRONIDAZOLE 500 MG/NS RTU 100 ML IV SCH ×3 (00:01→11:36)
[2016-08-10] MEDS: HEPARIN SOD (PORCINE) 5,000 UNIT/ML 1 ML SYRINGE SUBCUT SCH ×2 (05:19→13:24)
[2016-08-10] MEDS: HYDRALAZINE HCL 50 MG TABLET PO SCH ×2 (05:20→13:23)
[2016-08-10] MEDS: CLONIDINE HCL 0.1 MG TABLET PO SCH ×2 (05:20→13:23)
[2016-08-10] MEDS: HYDRALAZINE HCL INJ/PF 20 MG/1 ML SDV IV PRN (05:21)
[2016-08-10] MEDS: CIPROFLOXACIN 200 MG/D5W RTU 200 MG/100 ML RTUPB IV SCH (07:40)
--- NOTE | 2016-08-10 08:10 | PDOC PROGRESS REPORT ---
Subjective Progress Note for:: 08/10/16 Subjective:: The patient states to feel better. She still having some discomfort in the right upper quadrant but denies any further nausea or vomiting. She is complaining of difficulty swallowing and is presently being evaluated with the upper GI. Her blood pressure has improved but she still needs when necessary medications. Physical Exam Vital Signs: Temp Pulse Resp BP Pulse Ox 98.8 F 90 20 172/54 H 100 08/10/16 07:33 08/10/16 07:33 08/10/16 07:33 08/10/16 07:33 08/10/16 07:33 Intake & Output 08/09/16 08/10/16 08/11/16 06:59 06:59 06:59 Intake Total 4633 Balance 4633 Weight 76 kg General appearance: PRESENT: mild distress Head exam: PRESENT: atraumatic Eye exam: PRESENT: conjunctival injection Neck exam: ABSENT: carotid bruit, JVD Respiratory exam: PRESENT: crackles Cardiovascular exam: PRESENT: +S1, +S2 Pulses: PRESENT: +1 pedal pulses bilateral Vascular exam: PRESENT: normal capillary refill GI/Abdominal exam: PRESENT: Mcwilliams's sign, soft Extremities exam: PRESENT: full ROM Musculoskeletal exam: PRESENT: ambulatory Neurological exam: PRESENT: alert, awake, oriented to time Results Laboratory Results: 08/09/16 08/09/16 08/09/16 13:51 13:51 19:40 Creatine Kinase 84 73 CK-MB (CK-2) 0.96 Troponin I < 0.012 08/09/16 19:40 Creatine Kinase CK-MB (CK-2) 1.04 Troponin I < 0.012 Impressions: Chest X-Ray 08/09/16 04:11 IMPRESSION: Cardiomegaly. No acute infiltrates. Other findings as noted above Abdomen/Pelvis CT 08/09/16 05:50 IMPRESSION: 1. GALLSTONES. 2. COLONIC DIVERTICULOSIS. NO CT FINDINGS OF ACUTE DIVERTICULITIS. 3. OTHER CHRONIC FINDINGS ABOVE. NO OTHER SIGNIFICANT OR ACUTE PROCESS IN THE ABDOMEN OR PELVIS. Chest CT 08/09/16 05:50 IMPRESSION: SCATTERED ATELECTASIS/SCARRING. MODERATE PERICARDIAL EFFUSION. HIATAL HERNIA. NO ACUTE FINDING ON NON-CONTRASTED CHEST CT. Assessment & Plan - Diagnosis (1) Chest pain Qualifiers: Chest pain type: unspecified Qualified Code(s): R07.9 - Chest pain, unspecified Is this a current diagnosis for this admission?: YesPlan: Most probably noncardiac. We'll complete his series of enzymes (2) Cholelithiasis Qualifiers: Cholelithiasis location: gallbladder Cholecystitis presence: with cholecystitis Is this a current diagnosis for this admission?: YesPlan: The pain has improved with just clear liquids and IV antibiotics. (3) Acute cholecystitis due to biliary calculus Is this a current diagnosis for this admission?: YesPlan: We'll place patient on nothing by mouth status and start antibiotics (4) Renal failure (ARF), acute on chronic Is this a current diagnosis for this admission?: YesPlan: We'll start IV fluids and see if the numbers improved with hydration (5) Diabetes Qualifiers: Diabetes mellitus type: type 2 Diabetes mellitus complication status: with kidney complications Chronic kidney disease stage: stage 3 (moderate) Is this a current diagnosis for this admission?: YesPlan: We will obtain Accu-Cheks and cover with insulin. The patient had a acetone breath. We will consider obtaining acetone levels. (6) Hypertensive urgency Is this a current diagnosis for this admission?: YesPlan: We'll continue adjusting blood pressure medications as recommended by the womens health nurse practitioner
--- NOTE | 2016-08-10 08:21 | PDOC CONSULTATION ---
Consultation Consult Date: 08/09/16 History of Present Illness Admission Date/PCP: 08/09/16 08:58 History of Present Illness: Late entry. Samanta Mercedes is a 75-year-old -[place] female with a significant past medical history including chronic pericardial effusion, stage IV chronic kidney disease, diabetes mellitus, hiatal hernia, hypertension, hyperlipidemia, heart murmur, obstructive sleep apnea, history of bronchitis, history of colorectal cancer, GERD, arthritis, diverticulosis, anemia on Procrit. She reports eating half an appendectomy yesterday and experiencing indigestion and a feeling that the apple was stuck in her throat. She drank half a glass of manoj kevin to try to wash it down. She also had a very small plate stirfry. She went to bed but awoke to a half hours later with again a feeling of mediastinal pain, indigestion, lump in her throat. She had a normal bowel movement, but shortly thereafter had a loose brown bowel movement, nausea, vomiting, shortness breath , lightheadedness, chills, shaking and headache. She presented to the ER and was given a GI cocktail and a nitroglycerin patch and an aspirin and morphine and gradually her pain improved from severe pain, sharp, 10/10, to mild pain. The primary pain was throughout her mediastinum from her throat to her epigastrium, but the pain also radiated from her epigastrium around both sides to her back. She denies fever, sweats, seizures, dizziness or urinary symptoms. She denies acholic stools, jaundice, tea-colored urine. She reports recurrence of the feeling of a lump in her throat and mediastinal pain after taking some clear liquids for lunch in the hospital. Imaging was done which revealed multiple findings including a noninflamed gallbladder but also a gallstone. Past Medical History Cardiac Medical History: Reports: Hyperlipidema, Hypertension, Heart Murmur Pulmonary Medical History: Reports: Bronchitis - 30 years ago, Sleep Apnea Denies: Respiratory Failure, Tuberculosis Endocrine Medical History: Reports: Diabetes Mellitus Type 2 Renal/ Medical History: Reports: Chronic Kidney Disease - Stage IV Malignancy Medical History: Reports: Colorectal Cancer - Status post colon resection in 2012 GI Medical History: Reports: Gastroesophageal Reflux Disease, Other - Diverticulosis Musculoskeltal Medical History: Reports: Arthritis Hematology: Reports: Anemia Denies: Hemophilia, Sickle Cell Disease Past Surgical History Past Surgical History: Reports: Orthopedic Surgery - neck 1990s, Other - Partial colon resection 2012 Denies: Amputation Social History Information Source: Patient Lives with: Family Smoking Status: Never Smoker Frequency of Alcohol Use: None Hx Recreational Drug Use: No Drugs: None Hx Prescription Drug Abuse: No - Advance Directive Resuscitation Status: Full Code Family History Family History: CAD, CVA, DM, Hypertension, Malignancy - Mother had breast cancer Parental Family History Reviewed: Yes Children Family History Reviewed: NA Sibling(s) Family History Reviewed.: Yes Medication/Allergy Home Medications: Atorvastatin Calcium [Lipitor 10 mg Tablet] 10 mg PO DAILY 08/09/16 Clonidine HCl [Catapres 0.1 mg Tablet] 0.1 mg PO DAILY 08/09/16 Doxazosin Mesylate [Cardura 2 mg Tablet] 2 mg PO QHS 08/09/16 Hydralazine HCl [Apresoline 50 mg Tablet] 50 mg PO Q8 08/09/16 Nifedipine [Procardia XL 30 mg Tablet] 90 mg PO Q12 08/09/16 Omeprazole 20 mg PO DAILY 08/09/16 Sodium Bicarbonate [Sodium Bicarbonate 650 mg Tablet] 650 mg PO DAILY 08/09/16 Allergies/Adverse Reactions: Shellfish * Allergy (Severe, Verified 04/10/15 18:06) Anaphylaxis Penicillins Allergy (Unknown, Verified 04/10/15 18:06) Anaphylaxis prednisone [Prednisone] Allergy (Unknown, Verified 04/10/15 18:06) Sulfa (Sulfonamide Antibiotics) Allergy (Unknown, Verified 04/10/15 18:06) Anaphylaxis Review of Systems All systems: reviewed and no additional remarkable complaints except as stated Physical Exam Vital Signs: Temp Pulse Resp BP Pulse Ox 98.8 F 90 20 172/54 H 100 08/10/16 07:33 08/10/16 07:33 08/10/16 07:33 08/10/16 07:33 08/10/16 07:33 Intake & Output 08/09/16 08/10/16 08/11/16 06:59 06:59 06:59 Intake Total 4633 Balance 4633 Weight 76 kg General appearance: PRESENT: no acute distress Head exam: PRESENT: normocephalic Eye exam: PRESENT: EOMI Mouth exam: PRESENT: tongue midline Neck exam: ABSENT: JVD, lymphadenopathy, tenderness, thyromegaly Respiratory exam: PRESENT: clear to auscultation jose Cardiovascular exam: PRESENT: RRR, systolic murmur GI/Abdominal exam: PRESENT: soft, tenderness - Mild epigastric tenderness to palpation. No Mcwilliams sign.. ABSENT: distended, guarding, Mcwilliams's sign, rebound, rigid Extremities exam: ABSENT: pedal edema, tenderness Neurological exam: PRESENT: alert, oriented to person, oriented to place, oriented to time, oriented to situation Psychiatric exam: PRESENT: appropriate affect, normal mood Skin exam: ABSENT: jaundice, rash Results Laboratory Results: 08/09/16 08/09/16 08/09/16 13:51 13:51 19:40 Creatine Kinase 84 73 CK-MB (CK-2) 0.96 Troponin I < 0.012 08/09/16 19:40 Creatine Kinase CK-MB (CK-2) 1.04 Troponin I < 0.012 Impressions: Chest X-Ray 08/09/16 04:11 IMPRESSION: Cardiomegaly. No acute infiltrates. Other findings as noted above Abdomen/Pelvis CT 08/09/16 05:50 IMPRESSION: 1. GALLSTONES. 2. COLONIC DIVERTICULOSIS. NO CT FINDINGS OF ACUTE DIVERTICULITIS. 3. OTHER CHRONIC FINDINGS ABOVE. NO OTHER SIGNIFICANT OR ACUTE PROCESS IN THE ABDOMEN OR PELVIS. Chest CT 08/09/16 05:50 IMPRESSION: SCATTERED ATELECTASIS/SCARRING. MODERATE PERICARDIAL EFFUSION. HIATAL HERNIA. NO ACUTE FINDING ON NON-CONTRASTED CHEST CT. Assessment & Plan - Plan Summary Plan Summary: Late entry. Seen on 08/09/2016. Mediastinal & epigastric pain which also radiated to the right and left upper quadrants and through to the back. Complaint of mediastinal pain and lump in her throat is her primary complaint, so we will start with a upper GI/small bowel follow-through. Nothing by mouth at midnight for that study. We discussed her differential diagnosis which includes PUD, esophagitis with stricture, GERD, symptomatic cholelithiasis as well as a number of other things. No Mcwilliams sign at this point. We spoke about her comorbidities. If the cause of her pain is surgical, she still may not be a good candidate given her multiple comorbidities. We may need to consider nonoperative options or transfer to tertiary care center. She understands and wishes to proceed with upper GI small bowel follow-through in the morning.
[2016-08-10] MEDS ORDERED: ASPIRIN 325 MG TABLET, ENT COATED PO SCH (10:00)
[2016-08-10] MEDS ORDERED: SODIUM BICARBONATE 650 MG TABLET PO SCH (10:00)
[2016-08-10] MEDS ORDERED: NIFEDIPINE 30 MG TAB.ER.24 PO SCH (10:00)
--- NOTE | 2016-08-10 10:51 | PDOC PROGRESS REPORT ---
Subjective Progress Note for:: 08/10/16 Subjective:: She was seen this morning. She did just have a barium swallow. She states that when she did have that she felt that it was pushing some form of foreign body in her upper esophagus down and she felt suddenly relieved. She has been having dysphagia for the last day or so and it happened the night before when she had an apple. She now believes that the piece of apple had been stuck in her esophagus and finally was pushed down when she had the barium swallow this morning. She did have dysphagia yesterday and had difficulties to swallow her tablets. She has had her blood pressure running high. I note that Red Atkins MD has adjusted her medications. Physical Exam Vital Signs: Temp Pulse Resp BP Pulse Ox 98.8 F 90 20 172/54 H 100 08/10/16 07:33 08/10/16 07:33 08/10/16 07:33 08/10/16 07:33 08/10/16 07:33 Intake & Output 08/09/16 08/10/16 08/11/16 06:59 06:59 06:59 Intake Total 4633 Balance 4633 Weight 76 kg General appearance: PRESENT: no acute distress Respiratory exam: PRESENT: clear to auscultation jose. ABSENT: crackles, rhonchi Cardiovascular exam: PRESENT: +S1, +S2, systolic murmur GI/Abdominal exam: ABSENT: ascites, diminished bowel sounds, distended, firm, guarding, organomegaly, soft, tenderness Results Laboratory Results: 08/09/16 08/09/16 08/09/16 13:51 13:51 19:40 Creatine Kinase 84 73 CK-MB (CK-2) 0.96 Troponin I < 0.012 08/09/16 19:40 Creatine Kinase CK-MB (CK-2) 1.04 Troponin I < 0.012 Impressions: Chest X-Ray 08/09/16 04:11 IMPRESSION: Cardiomegaly. No acute infiltrates. Other findings as noted above Abdomen/Pelvis CT 08/09/16 05:50 IMPRESSION: 1. GALLSTONES. 2. COLONIC DIVERTICULOSIS. NO CT FINDINGS OF ACUTE DIVERTICULITIS. 3. OTHER CHRONIC FINDINGS ABOVE. NO OTHER SIGNIFICANT OR ACUTE PROCESS IN THE ABDOMEN OR PELVIS. Chest CT 08/09/16 05:50 IMPRESSION: SCATTERED ATELECTASIS/SCARRING. MODERATE PERICARDIAL EFFUSION. HIATAL HERNIA. NO ACUTE FINDING ON NON-CONTRASTED CHEST CT. Assessment & Plan - Diagnosis (1) CKD (chronic kidney disease) stage 4, GFR 15-29 ml/min Plan: Stable as per yesterday's labs. Today's labs have been ordered. I'm going to be off to the middle of next week. If there are any concerns from a renal point please call Dr. Mazariegos who will be standing by (2) Chest pain Qualifiers: Chest pain type: unspecified Qualified Code(s): R07.9 - Chest pain, unspecified Is this a current diagnosis for this admission?: YesPlan: It looks like she could have had recent apple stuck in her esophagus which led to esophageal spasms/corkscrew esophagus something like that. Apparently when she had the beta and swallow today it pushed it down and she feels completely relieved of the dysphagia symptoms that she had this morning. Hopefully this is going to relieve all her issues and the associated problems that arose as a result of this primary problem. Her uncontrolled blood pressure could also be tackled better now that her primary problem seems to be resolved. Wait to see the result of the beta him swallow which might capture the spasms of the esophagus hopefully. (3) Constipation Is this a current diagnosis for this admission?: Yes (4) Diabetes Qualifiers: Diabetes mellitus type: type 2 Diabetes mellitus complication status: with kidney complications Chronic kidney disease stage: stage 3 (moderate) Is this a current diagnosis for this admission?: Yes (5) Hypertensive urgency Is this a current diagnosis for this admission?: YesPlan: I will leave this to Dr. Luna and he was just titrated her medications (6) Pericardial effusion Is this a current diagnosis for this admission?: Yes (7) Metabolic acidosis Plan: She is on soda bicarbonate. Monitor labs. Titrated following labs and if not I will follow up as an outpatient.
[2016-08-10] MEDS: LANSOPRAZOLE 30 MG TAB.RAP.DR PO SCH (11:35)
[2016-08-10] MEDS: SODIUM BICARBONATE 650 MG TABLET PO SCH (11:36)
--- NOTE | 2016-08-10 11:37 | EKG REPORT ---
SEVERITY:- BORDERLINE ECG - SINUS RHYTHM LOW VOLTAGE IN FRONTAL LEADS BORDERLINE R WAVE PROGRESSION, ANTERIOR LEADS BORDERLINE T WAVE ABNORMALITIES : Confirmed by: Rosalba Delatorre 10-Aug-2016 11:37:02
--- NOTE | 2016-08-10 11:38 | EKG REPORT ---
SEVERITY:- BORDERLINE ECG - SINUS RHYTHM LOW VOLTAGE IN FRONTAL LEADS BORDERLINE R WAVE PROGRESSION, ANTERIOR LEADS BORDERLINE T ABNORMALITIES, ANT-LAT LEADS : Confirmed by: Rosalba Delatorre 10-Aug-2016 11:37:20
[2016-08-10 12:15] VITALS: BP 172/73
[2016-08-10 13:19] LABS: HEMATOCRIT 31.9 % (36.0-47.0); HEMOGLOBIN 10.1 g/dL (12.0-15.5); HGB HCT DIFFERENCE -1.6; MEAN CORPUSCULAR HEMOGLOBIN 27.1 pg (27.0-33.4); MEAN CORPUSCULAR HGB CONC 31.7 g/dL (32.0-36.0); MEAN CORPUSCULAR VOLUME 86 fl (80-97); RED BLOOD COUNT 3.72 10^6/uL (3.72-5.28); WHITE BLOOD COUNT 12.9 10^3/uL (4.0-10.5)
[2016-08-10 13:36] LABS: ALANINE AMINOTRANSFERASE 21 U/L (9-52); ALBUMIN 3.7 g/dL (3.5-5.0); ALKALINE PHOSPHATASE 84 U/L (38-126); ANION GAP 13 (5-19); ASPARTATE AMINO TRANSFERASE 13 U/L (14-36); BILIRUBIN,TOTAL 0.6 mg/dL (0.2-1.3); BLOOD UREA NITROGEN 36 mg/dL (7-20); CALCIUM 9.1 mg/dL (8.4-10.2); CARBON DIOXIDE 19 mmol/L (22-30); CHLORIDE 106 mmol/L (98-107); CREATININE RESULT 2.52 mg/dL (0.52-1.25); GLUCOSE 150 mg/dL (75-110); SODIUM 137.7 mmol/L (137-145); TOTAL PROTEIN 6.3 g/dL (6.3-8.2)
[2016-08-10 13:45] LABS: BASOPHILS % (MANUAL) 0 % (0-2); EOSINOPHILS % (MANUAL) 0 % (0-6); LYMPHOCYTES % (MANUAL) 7 % (13-45); TOTAL CELLS COUNTED 100
[2016-08-10 13:46] LABS: ANISOCYTOSIS 1+; BURR CELLS SLIGHT; POIKILOCYTOSIS SLIGHT; POLYCHROMASIA SLIGHT; SCHISTOCYTES SLIGHT
--- NOTE | 2016-08-10 14:25 | PDOC TRANSFER SUMMARY ---
General Admission Date/PCP: 08/09/16 08:58 Transfer Date: 08/10/16 Accepting Facility: [facility] Resuscitation Status: Full Code - Transfer Diagnosis (1) Chest pain Is this a current diagnosis for this admission?: Yes (2) Cholelithiasis Is this a current diagnosis for this admission?: Yes (3) Acute cholecystitis due to biliary calculus Is this a current diagnosis for this admission?: Yes (4) Renal failure (ARF), acute on chronic Is this a current diagnosis for this admission?: Yes (5) Diabetes Is this a current diagnosis for this admission?: Yes (6) Hypertensive urgency Is this a current diagnosis for this admission?: Yes (8) Esophageal perforation Is this a current diagnosis for this admission?: YesDiagnosis Summary: The patient was admitted with epigastric/retrosternal pain. She ruled out for myocardial infarction. She was found to have gallstones with a positive Mcwilliams sign. The patient was complaining of difficulty swallowing with some retrosternal discomfort. Surgical consultation was obtained and have ordered an upper GI which was consistent with esophageal strictures and esophageal perforation which was contained. The patient was seen on the follow-up by the surgeon with the recommendation to transfer to tertiary care with availability of cardiothoracic surgeon. The case was discussed with the cardiothoracic surgeon in [place] who has accepted the patient on transfer. - Transfer Medications Home Medications: Atorvastatin Calcium [Lipitor 10 mg Tablet] 10 mg PO DAILY 08/09/16 Clonidine HCl [Catapres 0.1 mg Tablet] 0.1 mg PO DAILY 08/09/16 Doxazosin Mesylate [Cardura 2 mg Tablet] 2 mg PO QHS 08/09/16 Hydralazine HCl [Apresoline 50 mg Tablet] 50 mg PO Q8 08/09/16 Nifedipine [Procardia XL 30 mg Tablet] 90 mg PO Q12 08/09/16 Omeprazole 20 mg PO DAILY 08/09/16 Sodium Bicarbonate [Sodium Bicarbonate 650 mg Tablet] 650 mg PO DAILY 08/09/16 Transfer Medications: Current Medications Acetaminophen (Tylenol 325 Mg Tablet) 650 mg PO Q6HP PRN PRN Reason: FEVER Stop: 09/08/16 05:37 Aspirin (Ecotrin 325 Mg Ec Tablet) 325 mg PO DAILY YAZAN Stop: 09/09/16 09:59 Last Admin: 08/10/16 11:35 Dose: 325 mg Atorvastatin Calcium (Lipitor 10 Mg Tablet) 10 mg PO QHS [facility] Stop: 09/08/16 21:59 Last Admin: 08/09/16 21:09 Dose: 10 mg Clonidine (Catapres 0.1 Mg Tablet) 0.05 mg PO Q8 [facility] Stop: 09/08/16 13:59 Last Admin: 08/10/16 13:23 Dose: Not Given Dextrose (Dextrose Inj 50% Syringe (25 Gm/50 Ml)) 12.5 gm IV PRN PRN; Protocol PRN Reason: FOR BG 50-69 IN ALERT PATIENT Stop: 09/08/16 05:36 Dextrose (Dextrose Inj 50% Syringe (25 Gm/50 Ml)) 25 gm IV PRN PRN PRN Reason: Protocol Stop: 09/08/16 05:36 Doxazosin Mesylate (Cardura 2 Mg Tablet) 2 mg PO QHS [facility] Stop: 09/08/16 21:59 Last Admin: 08/09/16 21:09 Dose: 2 mg Glucagon (Glucagen Inj 1 Mg Vial) 1 mg IM PRN PRN; Protocol PRN Reason: Evaluate for BG < 70 Stop: 09/08/16 05:36 Glucose (Glutose 40% Gel 15 Gm Tube) 15 gm PO PRN PRN; Protocol PRN Reason: FOR BG 50-69 IN ALERT PATIENT Stop: 09/08/16 05:36 Glucose (Glutose 40% Gel 15 Gm Tube) 30 gm PO PRN PRN; Protocol PRN Reason: FOR BG < 50 IN ALERT PATIENT Stop: 09/08/16 05:36 Heparin Sodium (Porcine) (Heparin Inj 5,000 Units/Ml 1 Ml Syringe) 5,000 unit SUBCUT Q8 [facility] Stop: 09/08/16 05:59 Last Admin: 08/10/16 13:24 Dose: Not Given Hydralazine HCl (Apresoline Inj/Pf 20 Mg/1 Ml Sdv) 10 mg IV Q6HP PRN PRN Reason: Sbp>160 Stop: 09/08/16 05:37 Last Admin: 08/10/16 05:21 Dose: 10 mg Hydralazine HCl (Apresoline 50 Mg Tablet) 50 mg PO Q8 [facility] Stop: 09/08/16 13:59 Last Admin: 08/10/16 13:23 Dose: Not Given Metronidazole (Flagyl Rtu 500 Mg/Ns 100ml Premix) 100 mls @ 100 mls/hr IV Q6 YAZAN Stop: 08/16/16 17:59 Last Admin: 08/10/16 11:36 Dose: 100 ml Ciprofloxacin/Dextrose (Cipro Rtu 200 Mg-D5w 100 Ml Premix Bag) 200 mg in 100 mls @ 100 mls/hr IV Q18H [facility] Stop: 08/16/16 13:59 Last Admin: 08/10/16 07:40 Dose: 100 ml Insulin Human Lispro (Humalog Insulin 100 Unit/1 Ml 3 Ml Vial) 0 - 12 unit SUBCUT Q6HP PRN PRN Reason: Protocol Stop: 09/08/16 05:46 Last Admin: 08/09/16 17:18 Dose: 2 unit Lansoprazole (Prevacid 30 Mg Odt Tablet) 30 mg PO QAM [facility] Stop: 09/08/16 07:59 Last Admin: 08/10/16 11:35 Dose: 30 mg Nifedipine (Procardia Xl 30 Mg Tablet) 90 mg PO Q12 [facility] Stop: 09/09/16 09:59 Last Admin: 08/10/16 11:36 Dose: 90 mg Sodium Bicarbonate (Sodium Bicarbonate 650 Mg Tablet) 650 mg PO Q12 YAZAN Stop: 09/08/16 21:59 Last Admin: 08/10/16 11:36 Dose: 650 mg Sodium Chloride (Saline Flush 2.5 Ml Monoject Prefil Syrin) 2.5 ml IV Q8 [facility] Stop: 09/08/16 05:59 Last Admin: 08/10/16 13:24 Dose: 2.5 ml - Allergies Allergies/Adverse Reactions: Shellfish * Allergy (Severe, Verified 04/10/15 18:06) Anaphylaxis Penicillins Allergy (Unknown, Verified 04/10/15 18:06) Anaphylaxis prednisone [Prednisone] Allergy (Unknown, Verified 04/10/15 18:06) Sulfa (Sulfonamide Antibiotics) Allergy (Unknown, Verified 04/10/15 18:06) Anaphylaxis - Diet/Activity Discharge Diet: Full Liquids, Other (Comments) Hospital Course Hospital Course: The patient was admitted to the hospital with retrosternal pain and epigastric pain radiating into her back. On examination she had a positive Mcwilliams sign. Because of her urgent hypertension the patient underwent a CT of the chest to rule out dissecting aneurysm which was negative. The patient underwent a CT of the abdomen and pelvis which was positive for gallstones. The patient ruled out for myocardial infarction. She did have a small pericardial effusion on the CT which is old. She was seen by the cardiology and her recent stress test was unremarkable. Her echocardiogram was unremarkable. The patient was complaining of difficulty swallowing. Surgical consultation was cold and the upper GI was ordered which showed esophageal strictures and a fistula and a perforated esophagus which was contained. Upon recommendation by the surgery the patient will be transferred to [place]. Physical Exam Vital Signs: Temp Pulse Resp BP Pulse Ox 97.6 F 88 16 172/73 H 100 08/10/16 11:39 08/10/16 11:39 08/10/16 11:39 08/10/16 11:39 08/10/16 11:39 Intake & Output 08/09/16 08/10/16 08/11/16 06:59 06:59 06:59 Intake Total 4633 Balance 4633 Weight 76 kg General appearance: PRESENT: mild distress Head exam: PRESENT: atraumatic Eye exam: PRESENT: conjunctiva pink Neck exam: ABSENT: carotid bruit Respiratory exam: PRESENT: clear to auscultation jose Cardiovascular exam: PRESENT: RRR, +S1, +S2 Pulses: PRESENT: +1 pedal pulses bilateral GI/Abdominal exam: PRESENT: tenderness Extremities exam: PRESENT: full ROM Musculoskeletal exam: PRESENT: ambulatory Neurological exam: PRESENT: alert Results Laboratory Results: 08/10/16 13:04 08/10/16 13:04 08/10/16 08/10/16 13:04 13:04 WBC 12.9 H RBC 3.72 Hgb 10.1 L Hct 31.9 L MCV 86 MCH 27.1 MCHC 31.7 L RDW 18.0 H Plt Count 344 Seg Neutrophils % Not Reportable Lymphocytes % Not Reportable Monocytes % Not Reportable Eosinophils % Not Reportable Basophils % Not Reportable Absolute Neutrophils Not Reportable Absolute Lymphocytes Not Reportable Absolute Monocytes Not Reportable Absolute Eosinophils Not Reportable Absolute Basophils Not Reportable Sodium 137.7 Potassium 5.0 Chloride 106 Carbon Dioxide 19 L Anion Gap 13 BUN 36 H Creatinine 2.52 H Est GFR ( Amer) 23 L Est GFR (Non-Af Amer) 19 L Glucose 150 H Calcium 9.1 Total Bilirubin 0.6 AST 13 L ALT 21 Alkaline Phosphatase 84 Total Protein 6.3 Albumin 3.7 08/09/16 08/09/16 08/09/16 13:51 13:51 19:40 Creatine Kinase 84 73 CK-MB (CK-2) 0.96 Troponin I < 0.012 08/09/16 19:40 Creatine Kinase CK-MB (CK-2) 1.04 Troponin I < 0.012 Impressions: Chest X-Ray 08/09/16 04:11 IMPRESSION: Cardiomegaly. No acute infiltrates. Other findings as noted above Abdomen/Pelvis CT 08/09/16 05:50 IMPRESSION: 1. GALLSTONES. 2. COLONIC DIVERTICULOSIS. NO CT FINDINGS OF ACUTE DIVERTICULITIS. 3. OTHER CHRONIC FINDINGS ABOVE. NO OTHER SIGNIFICANT OR ACUTE PROCESS IN THE ABDOMEN OR PELVIS. Chest CT 08/09/16 05:50 IMPRESSION: SCATTERED ATELECTASIS/SCARRING. MODERATE PERICARDIAL EFFUSION. HIATAL HERNIA. NO ACUTE FINDING ON NON-CONTRASTED CHEST CT. Upper GI and Small Bowel X-Ray 08/10/16 06:00 IMPRESSION: Long segment mild stricture mid 3rd of the esophagus about 4 cm inferior to the alhaji. 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 This is likely a contained perforation in the mediastinum Distortion of the pylorus and duodenal bulb with thickened radiating folds either due to active or healed ulcer Normal small-bowel follow-through study Plan Discharge Plan: Transferred to [place] under the care of cardiothoracic surgery
--- NOTE | 2016-08-10 14:53 | PDOC PROGRESS REPORT ---
Subjective Progress Note for:: 08/10/16 Subjective:: Feels better. No abdominal pain. No chest pain at this time. Physical Exam Vital Signs: Temp Pulse Resp BP Pulse Ox 97.6 F 88 16 172/73 H 100 08/10/16 11:39 08/10/16 11:39 08/10/16 11:39 08/10/16 11:39 08/10/16 11:39 Intake & Output 08/09/16 08/10/16 08/11/16 06:59 06:59 06:59 Intake Total 4633 Balance 4633 Weight 76 kg General appearance: PRESENT: no acute distress Respiratory exam: PRESENT: clear to auscultation jose, other - No crepitus Cardiovascular exam: PRESENT: RRR GI/Abdominal exam: PRESENT: other - Soft, nondistended, nontender to palpation. Results Laboratory Results: 08/10/16 13:04 08/10/16 13:04 08/10/16 08/10/16 13:04 13:04 WBC 12.9 H RBC 3.72 Hgb 10.1 L Hct 31.9 L MCV 86 MCH 27.1 MCHC 31.7 L RDW 18.0 H Plt Count 344 Seg Neutrophils % Not Reportable Lymphocytes % Not Reportable Monocytes % Not Reportable Eosinophils % Not Reportable Basophils % Not Reportable Absolute Neutrophils Not Reportable Absolute Lymphocytes Not Reportable Absolute Monocytes Not Reportable Absolute Eosinophils Not Reportable Absolute Basophils Not Reportable Sodium 137.7 Potassium 5.0 Chloride 106 Carbon Dioxide 19 L Anion Gap 13 BUN 36 H Creatinine 2.52 H Est GFR ( Amer) 23 L Est GFR (Non-Af Amer) 19 L Glucose 150 H Calcium 9.1 Total Bilirubin 0.6 AST 13 L ALT 21 Alkaline Phosphatase 84 Total Protein 6.3 Albumin 3.7 08/09/16 08/09/16 08/09/16 13:51 13:51 19:40 Creatine Kinase 84 73 CK-MB (CK-2) 0.96 Troponin I < 0.012 08/09/16 19:40 Creatine Kinase CK-MB (CK-2) 1.04 Troponin I < 0.012 Impressions: Chest X-Ray 08/09/16 04:11 IMPRESSION: Cardiomegaly. No acute infiltrates. Other findings as noted above Abdomen/Pelvis CT 08/09/16 05:50 IMPRESSION: 1. GALLSTONES. 2. COLONIC DIVERTICULOSIS. NO CT FINDINGS OF ACUTE DIVERTICULITIS. 3. OTHER CHRONIC FINDINGS ABOVE. NO OTHER SIGNIFICANT OR ACUTE PROCESS IN THE ABDOMEN OR PELVIS. Chest CT 08/09/16 05:50 IMPRESSION: SCATTERED ATELECTASIS/SCARRING. MODERATE PERICARDIAL EFFUSION. HIATAL HERNIA. NO ACUTE FINDING ON NON-CONTRASTED CHEST CT. Upper GI and Small Bowel X-Ray 08/10/16 06:00 IMPRESSION: Long segment mild stricture mid 3rd of the esophagus about 4 cm inferior to the alhaji. 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 This is likely a contained perforation in the mediastinum Distortion of the pylorus and duodenal bulb with thickened radiating folds either due to active or healed ulcer Normal small-bowel follow-through study Assessment & Plan - Diagnosis (1) Esophageal perforation Is this a current diagnosis for this admission?: YesPlan: Swallow study remarkable for mid esophageal perforation that appears contained. Patient is not septic. In light of the perforation and her multiple comorbidities she would be much better served at a tertiary care institution. I have discussed the my recommendation with Red Atkins MD who will arrange transfer. Keep patient strict nothing by mouth in the meantime.
--- NOTE | 2016-08-10 18:25 | PDOC PROGRESS REPORT ---
Subjective Progress Note for:: 08/10/16 Subjective:: Patient was seen in the morning prior to discharge. She continues to have some upper abdominal and epigastric discomfort. She is denying any shortness of breath. Patient being taken down for upper GI study to the radiology department. So far cardiac enzymes has been negative. EKG this morning has been nonacute. 4 sets of cardiac enzymes has been negative. Physical Exam Vital Signs: Temp Pulse Resp BP Pulse Ox 97.6 F 85 16 172/73 H 100 08/10/16 11:39 08/10/16 14:00 08/10/16 11:39 08/10/16 11:39 08/10/16 11:39 Intake & Output 08/09/16 08/10/16 08/11/16 06:59 06:59 06:59 Intake Total 4633 Balance 4633 Weight 76 kg Exam: GENERAL: well-nourished and in no acute distress. Alert and oriented x3 HEAD: Atraumatic, normocephalic. EYES: Pupils equal round and reactive to light, extraocular movements intact, sclera anicteric, conjunctiva are normal. ENT: TMs normal, nares patent, oropharynx clear without exudates. Moist mucous membranes. No oral ulcerations or bleeding gums noted NECK: supple without lymphadenopathy. Trachea is central. No cervical or axillary lymphadenopathy noted. Carotids are 2+, JVD WNL LUNGS: Respiration seems nonlabored, no significant accessory muscle action noted. Breath sounds clear to auscultation bilaterally and equal. No wheezes rales or rhonchi. No significant dullness noted on percussion. CHEST: Palpation of the chest wall shows no significant chest wall tenderness or abnormalities. HEART: [employer], No PSH, 1/6 LEONOR aortic area, 1/6 abarca systolic murmur mitral area, no rubs, no gallops. ABDOMEN: Soft, epigastric tenderness appreciated, normoactive bowel sounds. No guarding, no rebound. No rigidity noted . No masses appreciated. EXTREMITIES: Pedal pulses are 1-2+, no calf tenderness noted. No clubbing or cyanosis.trace to 1+ pedal edema noted NEUROLOGICAL: Focused neurological exam showed no significant neurologic deficit. Normal speech, no focal weakness appreciated. PSYCH: Normal mood, normal affect. Judgment and insight within normal limits. SKIN: No significant ecchymosis, rash, ulcerations or signs of pruritus noted. MUSCULOSKELETAL EXAM: No significant joint swelling noted. Results Laboratory Results: 08/10/16 13:04 08/10/16 13:04 08/10/16 08/10/16 13:04 13:04 WBC 12.9 H RBC 3.72 Hgb 10.1 L Hct 31.9 L MCV 86 MCH 27.1 MCHC 31.7 L RDW 18.0 H Plt Count 344 Seg Neutrophils % Not Reportable Lymphocytes % Not Reportable Monocytes % Not Reportable Eosinophils % Not Reportable Basophils % Not Reportable Absolute Neutrophils Not Reportable Absolute Lymphocytes Not Reportable Absolute Monocytes Not Reportable Absolute Eosinophils Not Reportable Absolute Basophils Not Reportable Sodium 137.7 Potassium 5.0 Chloride 106 Carbon Dioxide 19 L Anion Gap 13 BUN 36 H Creatinine 2.52 H Est GFR ( Amer) 23 L Est GFR (Non-Af Amer) 19 L Glucose 150 H Calcium 9.1 Total Bilirubin 0.6 AST 13 L ALT 21 Alkaline Phosphatase 84 Total Protein 6.3 Albumin 3.7 08/09/16 08/09/16 08/09/16 13:51 13:51 19:40 Creatine Kinase 84 73 CK-MB (CK-2) 0.96 Troponin I < 0.012 08/09/16 19:40 Creatine Kinase CK-MB (CK-2) 1.04 Troponin I < 0.012 Impressions: Chest X-Ray 08/09/16 04:11 IMPRESSION: Cardiomegaly. No acute infiltrates. Other findings as noted above Abdomen/Pelvis CT 08/09/16 05:50 IMPRESSION: 1. GALLSTONES. 2. COLONIC DIVERTICULOSIS. NO CT FINDINGS OF ACUTE DIVERTICULITIS. 3. OTHER CHRONIC FINDINGS ABOVE. NO OTHER SIGNIFICANT OR ACUTE PROCESS IN THE ABDOMEN OR PELVIS. Chest CT 08/09/16 05:50 IMPRESSION: SCATTERED ATELECTASIS/SCARRING. MODERATE PERICARDIAL EFFUSION. HIATAL HERNIA. NO ACUTE FINDING ON NON-CONTRASTED CHEST CT. Upper GI and Small Bowel X-Ray 08/10/16 06:00 IMPRESSION: Long segment mild stricture mid 3rd of the esophagus about 4 cm inferior to the alhaji. 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 This is likely a contained perforation in the mediastinum Distortion of the pylorus and duodenal bulb with thickened radiating folds either due to active or healed ulcer Normal small-bowel follow-through study Assessment & Plan - Diagnosis (1) Chest pain Qualifiers: Chest pain type: unspecified Qualified Code(s): R07.9 - Chest pain, unspecified Is this a current diagnosis for this admission?: Yes (2) Hypertensive urgency Is this a current diagnosis for this admission?: Yes (3) Pericardial effusion Is this a current diagnosis for this admission?: Yes (4) Hyperkalemia Is this a current diagnosis for this admission?: Yes - Notes Notes: Chest pain: Cardiac enzymes so far has been negative. EKG has been nonspecific and nonacute. Patient going for GI studies with which I agree as by history it seems patient may have distal esophagitis or some other esophageal pathology. Hypertension: Blood pressure under better control. Pericardial effusion: No evidence of tamponade. Patient will have a follow-up study as a outpatient. Hyperkalemia: Improved. Patient was subsequently noted to have esophageal perforation. Patient being transferred to tertiary care. Patient was seen in the morning. - Time Time with patient: 15-25 minutes
[2016-08-10] MEDS ORDERED: DOXAZOSIN MESYLATE 2 MG TABLET PO SCH (22:00)
== END 2016-08-10 15:30 | disposition short-term general hospital (02) | DRG 369 ==
LOC: ER 03:22 → EH 05:37 → UNDOADMOB 06:19 → 3W 08:55 → OBSVTOIN 08:58
PROVIDERS: ADMIT Internal Medicine; ATTEND Internal Medicine
DX: K22.3 Perforation of esophagus (principal); N18.4 Chronic kidney disease, stage 4 (severe); I31.3 Pericardial effusion (noninflammatory); N17.9 Acute kidney failure, unspecified; K80.10 Calculus of gallbladder with chronic cholecystitis without obstruction; E87.2 Acidosis; I16.0 Hypertensive urgency; E11.22 Type 2 diabetes mellitus with diabetic chronic kidney disease; I12.9 Hypertensive chronic kidney disease with stage 1 through stage 4 chronic kidney disease, or unspecified chronic kidney disease; K44.9 Diaphragmatic hernia without obstruction or gangrene; E87.5 Hyperkalemia; E78.5 Hyperlipidemia, unspecified; K21.9 Gastro-esophageal reflux disease without esophagitis; R10.13 Epigastric pain; G47.33 Obstructive sleep apnea (adult) (pediatric); K59.09 Other constipation; Z79.84 Long term (current) use of oral hypoglycemic drugs; Z90.49 Acquired absence of other specified parts of digestive tract; Z88.8 Allergy status to other drugs, medicaments and biological substances; Z88.0 Allergy status to penicillin; Z88.2 Allergy status to sulfonamides; Z91.013 Allergy to seafood
CPT/HCPCS: 36415; 71010; 71250; 74176; 74249; 80053; 81001; 82550; 82553; 82962; 83036; 83605; 83690; 84443; 84484; 85025; 85652; 93005; 93010; 96374; 99285; G0378; J0360; J0744; J1644; J1815; J2270; J3490

== ENCOUNTER 2017-02-27 14:50 | Inpatient (IN) | payer MEDICARE, BC ==
--- NOTE | 2017-02-27 15:37 | ER Document Report ---
ED Respiratory Problem - General Chief Complaint: Shortness Of Breath Stated Complaint: SHORTNESS OF BREATH Time Seen by Provider: 02/27/17 15:31 Mode of Arrival: Ambulatory Information source: Patient TRAVEL OUTSIDE OF THE [place] IN LAST 30 DAYS: No - HPI Patient complains to provider of: Chest pain, Cough, Short of breath Onset: Other - 2 weeks Duration: Worse/persistent Quality of pain: Achy Severity: Mild Pain Level: 1 Short of Breath: Moderate Chest pain/discomfort: Tightness Cough: Nonproductive Associated symptoms: Chest pain/discomfort, Congestion, Cough, Extertional dyspnea, Short of breath Similar symptoms previously: Yes Recently seen / treated by doctor: Yes Notes: Patient is a 76-year-old female who was at dialysis today, reports developing chest discomfort during dialysis, with a fluttering sensation in her chest, over the past 2-3 weeks she has developed worsening dyspnea on exertion, she denies any actual chest pain, she reports a cough that is worse at night but nonproductive, no fever, states she feels a rattle in her chest, has a history of esophageal perforation in August of this year, received surgery of [facility], states she had chest tubes as well, since then also developed end-stage renal disease and is on dialysis - Related Data Allergies/Adverse Reactions: Shellfish * Allergy (Severe, Verified 04/10/15 18:06) Anaphylaxis Penicillins Allergy (Unknown, Verified 04/10/15 18:06) Anaphylaxis prednisone [Prednisone] Allergy (Unknown, Verified 04/10/15 18:06) Sulfa (Sulfonamide Antibiotics) Allergy (Unknown, Verified 04/10/15 18:06) Anaphylaxis Home Medications: Current Home Medications Acetaminophen [Children's Acetaminophen] 20 ml PO Q6HP PRN 02/27/17 [History] Amlodipine Besylate [Norvasc 10 mg Tablet] 10 mg PO DAILY 02/27/17 [History] Atorvastatin Calcium [Lipitor 10 mg Tablet] 10 mg PO DAILY 02/27/17 [History] Doxazosin Mesylate [Cardura 2 mg Tablet] 2 mg PO DAILY 02/27/17 [History] Furosemide [Lasix 20 mg Tablet] 20 mg PO DAILY 02/27/17 [History] Hydralazine HCl 100 mg PO DAILY 02/27/17 [History] Insulin Glargine,Hum.rec.anlog [Yadira Flor] 10 units SQ QHS 02/27/17 [ History] Linezolid [Zyvox] 30 ml PO BID 02/27/17 [History] Metoclopramide HCl [Reglan Oral Soln 10 mg/10 ml Udcup] 10 ml PO ACHS 02/27/17 [ History] Ranitidine HCl [Zantac] 300 mg PO BID 02/27/17 [History] Sodium Bicarbonate [Antacid] 650 mg PO DAILY 02/27/17 [History] Past Medical History - General Information source: Patient - Social History Smoking Status: Never Smoker Family History: CAD, CVA, DM, Hypertension, Malignancy - Mother had breast cancer - Past Medical History Cardiac Medical History: Reports: Hx Hypercholesterolemia, Hx Hypertension, Hx Heart Murmur Pulmonary Medical History: Reports: Hx Bronchitis - 30 years ago, Hx Sleep Apnea Denies: Hx Respiratory Failure, Hx Tuberculosis Endocrine Medical History: Reports: Hx Diabetes Mellitus Type 2 Renal/ Medical History: Denies: Hx Peritoneal Dialysis Malignancy Medical History: Reports: Hx Colorectal Cancer - Status post colon resection in 2012 GI Medical History: Reports: Hx Gastroesophageal Reflux Disease Musculoskeltal Medical History: Reports Hx Arthritis Psychiatric Medical History: Denies: Hx Depression Traumatic Medical History: Reports: Hx Fractures - left neck Past Surgical History: Reports: Hx Abdominal Surgery - colon resection, Hx Orthopedic Surgery - neck 1990s, Other - Partial colon resection 2012 - Immunizations Hx Diphtheria, Pertussis, Tetanus Vaccination: No Review of Systems - Review of Systems Constitutional: No symptoms reported EENT: No symptoms reported Cardiovascular: See HPI Respiratory: See HPI Gastrointestinal: No symptoms reported Genitourinary: No symptoms reported Female Genitourinary: No symptoms reported Musculoskeletal: No symptoms reported Skin: No symptoms reported Hematologic/Lymphatic: No symptoms reported Neurological/Psychological: No symptoms reported -: Yes All other systems reviewed and negative Physical Exam - Vital signs Vitals: Temp Pulse Resp BP Pulse Ox 98.7 F 96 16 181/75 H 96 02/27/17 15:02 02/27/17 15:02 02/27/17 15:02 02/27/17 15:02 02/27/17 15:02 Interpretation: Normal - General General appearance: Appears well, Alert - HEENT Head: Normocephalic, Atraumatic Eyes: Normal Pupils: PERRL - Respiratory Respiratory status: No respiratory distress, Other - Dialysis catheter present in the right anterior chest wall Chest status: Nontender Breath sounds: Decreased air movement, Nonproductive cough, Rales Chest palpation: Normal - Cardiovascular Rhythm: Regular Heart sounds: Normal auscultation Murmur: No - Abdominal Inspection: Normal Distension: No distension Bowel sounds: Normal Tenderness: Nontender Organomegaly: No organomegaly - Back Back: Normal, Nontender - Extremities General upper extremity: Normal inspection, Nontender, Normal color, Normal ROM , Normal temperature General lower extremity: Normal inspection, Nontender, Normal color, Normal ROM , Normal temperature, Normal weight bearing. No: Mason's sign - Neurological Neuro grossly intact: Yes Cognition: Normal Orientation: AAOx4 Devens Coma Scale Eye Opening: Spontaneous Sharona Coma Scale Verbal: Oriented Sharona Coma Scale Motor: Obeys Commands Sharona Coma Scale Total: 15 Speech: Normal Motor strength normal: LUE, RUE, LLE, RLE Sensory: Normal - Psychological Associated symptoms: Normal affect, Normal mood - Skin Skin Temperature: Warm Skin Moisture: Dry Skin Color: Normal Course - Re-evaluation Re-evalutation: 02/27/17 20:30 A call was placed to [facility] as this is where patient was previously treated, it was discussed with laboratory veterinarian who is covering for internal medicine/hospitalist, Dr. Puri, who has accepted patient for transfer, however the transfer center reports that they currently have a 48-72 hour wait list for bed placement, they did request that I speak with the cardiothoracic surgeon regarding patient as they previously treated her Patient was discussed with Dr. Noland, the cardiothoracic surgeon Anaya, does not feel as though patient's current condition is at all related to her previous esophageal rupture, recommends that patient be admitted to hospital service and have interventional radiology drain the right lung Patient was discussed with Dr. Aguirre who agrees to admit at [facility] for further evaluation and treatment 02/27/17 23:04 - Vital Signs Vital signs: Temp Pulse Resp BP Pulse Ox 98.7 F 96 19 180/84 H 98 02/27/17 15:02 02/27/17 15:02 02/27/17 22:01 02/27/17 22:57 02/27/17 22:01 - Laboratory Result Diagrams: 02/27/17 16:24 02/27/17 16:24 Laboratory results interpreted by me: 02/27/17 02/27/17 02/27/17 13:19 16:24 16:24 Hgb 11.4 L Hct 34.8 L RDW 16.4 H Seg Neutrophils % 80.4 H Lymphocytes % 11.2 L BUN 26 H Creatinine 2.22 H Est GFR ( Amer) 26 L Est GFR (Non-Af Amer) 22 L Glucose 136 H NT-Pro-B Natriuret Pep Urine Protein 30 H 02/27/17 16:24 Hgb Hct RDW Seg Neutrophils % Lymphocytes % BUN Creatinine Est GFR ( Amer) Est GFR (Non-Af Amer) Glucose NT-Pro-B Natriuret Pep 2040 H Urine Protein - Diagnostic Test Radiology reviewed: Image reviewed, Reports reviewed - EKG Interpretation by Me EKG shows normal: Sinus rhythm Rate: Normal Rhythm: NSR Voltage: Consistant with LVH - Transfer of Care Care transferred to following provider: Dr Agurire Discharge - Discharge Clinical Impression: Loculated pleural effusion Condition: Fair Disposition: ADMITTED INPATIENT Admitting Provider: Hospitalist Unit Admitted: [facility]
[2017-02-27 16:31] LABS: APPEARANCE,URINE SLIGHTLY-CLOUDY; BILIRUBIN,URINE NEGATIVE (NEGATIVE); GLUCOSE, URINE NEGATIVE (NEGATIVE); KETONES,URINE NEGATIVE (NEGATIVE); LEUKOCYTE ESTERASE,URINE NEGATIVE (NEGATIVE); NITRITE,URINE NEGATIVE (NEGATIVE); PROTEIN,URINE 30 mg/dL (NEGATIVE); URINE SPECIFIC GRAVITY 1.008; UROBILINOGEN,URINE NEGATIVE mg/dL (<2.0)
[2017-02-27 16:42] LABS: ABSOLUTE LYMPHOCYTES (AUTO) 0.6 10^3/uL (0.5-4.7); ABSOLUTE MONOCYTES (AUTO) 0.4 10^3/uL (0.1-1.4); ABSOLUTE NEUT (AUTO) 4.6 10^3/uL (1.7-8.2); BASOPHILS % (AUTO) 0.6 % (0-2); EOSINOPHILS % (AUTO) 0.4 % (0-6); HEMATOCRIT 34.8 % (36.0-47.0); HEMOGLOBIN 11.4 g/dL (12.0-15.5); HGB HCT DIFFERENCE -0.6; LYMPHOCYTES % (AUTO) 11.2 % (13-45); MEAN CORPUSCULAR HEMOGLOBIN 29.1 pg (27.0-33.4); MEAN CORPUSCULAR HGB CONC 32.7 g/dL (32.0-36.0); MEAN CORPUSCULAR VOLUME 89 fl (80-97); MONOCYTES % (AUTO) 7.4 % (3-13); RED BLOOD COUNT 3.92 10^6/uL (3.72-5.28); RED CELL DISTRIBUTION WIDTH 16.4 % (11.5-14.0); SEGMENTED NEUTROPHILS % (AUTO) 80.4 % (42-78); WHITE BLOOD COUNT 5.7 10^3/uL (4.0-10.5)
--- NOTE | 2017-02-27 16:55 | RADIOLOGY REPORT (SQ) ---
EXAM DESCRIPTION: CHEST PA/LAT COMPLETED DATE/TIME: 02/27/2017 4:37 pm REASON FOR STUDY: db COMPARISON: None. NUMBER OF VIEWS: Two view. TECHNIQUE: Frontal and lateral radiographic views of the chest acquired. LIMITATIONS: None. FINDINGS: LUNGS AND PLEURA: Extensive confluent density right upper lobe. Collapse versus consolid ation. Increase in density right lower lung zone. Infiltrate versus asymmetrical vascular congestio n and interstitial edema. Diffuse prominence of vascular markings left lung and mild interstitial ch alberto that may be secondary to pulmonary edema and vascular congestion. MEDIASTINUM AND HILAR STRUCTURES: No masses or contour abnormalities. HEART AND VASCULATURE: Heart normal size. No evidence for failure. BONY STRUCTURES: No acute findings. HARDWARE: PermCath on the right with the tip projected over the right atrium. . OTHER: No other significant finding. IMPRESSION: Large confluent density right upper lobe -collapse versus consolidation. Possible infil trate versus asymmetrical vascular congestion right lower lung zone. Diffuse markings on left may be secondary to pulmonary edema and vascular congestion. These findings represent a dramatic change si nce the previous CT of 08/09/2016. TECHNICAL DOCUMENTATION: JOB ID: [id number] [employer]- All Rights Reserved
[2017-02-27 16:57] LABS: ALANINE AMINOTRANSFERASE 27 U/L (9-52); ALKALINE PHOSPHATASE 99 U/L (38-126); ANION GAP 10 (5-19); ASPARTATE AMINO TRANSFERASE 21 U/L (14-36); BILIRUBIN,DIRECT 0.4 mg/dL (0.0-0.4); BILIRUBIN,TOTAL 0.9 mg/dL (0.2-1.3); BLOOD UREA NITROGEN 26 mg/dL (7-20); CALCIUM 9.5 mg/dL (8.4-10.2); CARBON DIOXIDE 27 mmol/L (22-30); CHLORIDE 104 mmol/L (98-107); CREATINE KINASE 55 U/L (30-135); CREATININE RESULT 2.22 mg/dL (0.52-1.25); GLUCOSE 136 mg/dL (75-110); POTASSIUM 4.8 mmol/L (3.6-5.0); SODIUM 141.2 mmol/L (137-145); TOTAL PROTEIN 7.3 g/dL (6.3-8.2)
[2017-02-27 17:08] LABS: CREATINE KINASE MB 0.98 ng/mL (<4.55)
[2017-02-27 17:11] LABS: TROPONIN I < 0.012 ng/mL
[2017-02-27] MEDS ORDERED: AZTREONAM INJ 1 GM VIAL IV ONE (18:27)
[2017-02-27] MEDS ORDERED: GENTAMICIN SULFATE INJ 80 MG/2 ML VIAL IV ONE (18:27)
--- NOTE | 2017-02-27 18:36 | RADIOLOGY REPORT (SQ) ---
EXAM DESCRIPTION: CT CHEST WITHOUT COMPLETED DATE/TIME: 02/27/2017 6:15 pm REASON FOR STUDY: Patient with history of prior esophageal rupture status post treatment at outside facility presents with new symptoms. COMPARISON: None. TECHNIQUE: CT scan performed of the chest without intravenous contrast. Images reviewed with lung, soft tissue and bone windows. Reconstructed coronal and sagittal MPR images reviewed. All images st ored on PACS. All CT scanners at this facility use dose modulation, iterative reconstruction, and/or weight based d osing when appropriate to reduce radiation dose to as low as reasonably achievable (ALARA). [facility]: Dose Right [facility]: CareDose [facility]: Dose Right [facility]: Teradose 4D [facility]: Smart [employer] RADIATION DOSE: Up-to-date CT equipment and radiation dose reduction techniques were employed. CTDIv ol: 8.1 mGy. DLP: 315 mGy-cm. mGy. LIMITATIONS: Limited by lack of contrast material. FINDINGS: LUNGS AND PLEURA: Compared to the prior CT chest there has been interval development of a large loculated pleural effusion within the right upper lobe measuring approximately 10.9 x 5.2 x 10. 0 cm. Additional loculated fluid seen within the right minor fissure with more free-flowing pleural fluid at the right lung base and left lung base. There is multifocal airspace disease involving the right lower lobe, left upper lobe, left lower lobe. No pneumothorax. HILAR AND MEDIASTINAL STRUCTURES: Again noted is dilatation of the distal esophagus best seen on seri es 601, image 45 and series 3 image 35. HEART AND VASCULAR STRUCTURES: Stable cardiomegaly. No aneurysm. No pericardial effusion. UPPER ABDOMEN: No significant findings. Limited exam. THYROID AND OTHER SOFT TISSUES: No masses. No adenopathy. BONES: No significant finding. HARDWARE: Stable position right-sided PermCath. OTHER: No other significant findings. IMPRESSION: INTERVAL DEVELOPMENT OF LOCULATED RIGHT SIDED PLEURAL EFFUSION DESCRIBED ABOVE PRESUM ABLY SEQUELA TO PRIOR ESOPHAGEAL PERFORATION. DIFFERENTIAL INCLUDES STERILE PLEURAL EFFUSION OR EMPY SAMIRA. ADDITIONAL FREE-FLOWING PLEURAL EFFUSIONS RIGHT GREATER THAN LEFT LUNG BASES AGAIN COULD BE STERILE O R INFECTED. MULTIFOCAL AIRSPACE DISEASE MOST SEVERELY INVOLVING THE RIGHT LOWER LOBE COMPATIBLE WITH PNEUMONIA. AGAIN NOTED IS DILATED DISTAL ESOPHAGUS. RESIDUAL/RECURRENT PERFORATION CANNOT BE ENTIRELY EXCLUDED HOWEVER NO FREE AIR IDENTIFIED. COMMENT: RESULTS COMMUNICATED TO AT 1825 HOURS ON 02/27/2017. TECHNICAL DOCUMENTATION: JOB ID: [id number] Quality ID # [id number]: Final reports with documentation of one or more dose reduction techniques (e.g., Au tomated exposure control, adjustment of the mA and/or kV according to patient size, use of iterative reconstruction technique) 2010 [employer]- All Rights Reserved
[2017-02-27] MEDS ORDERED: ONDANSETRON 4 MG TAB.RAPDIS SL ONE (20:43)
--- NOTE | 2017-02-27 21:12 | EKG REPORT ---
SEVERITY:- ABNORMAL ECG - SINUS RHYTHM LOW VOLTAGE IN FRONTAL LEADS CONSIDER LEFT VENTRICULAR HYPERTROPHY : Confirmed by: Rosalba Delatorre 27-Feb-2017 21:11:47
[2017-02-28 01:38] LABS: ADD ON TESTING BLD IN LAB ACKNOWLEDGE
[2017-02-28] MEDS ORDERED: INSULIN LISPRO 100 UNIT/ML 3 ML VIAL SUBCUT PRN (01:38)
[2017-02-28] MEDS ORDERED: DEXTROSE 40% GEL 15 GM TUBE PO PRN ×2 (01:38)
[2017-02-28] MEDS ORDERED: IPRATROPIUM/ALBUTEROL 0.5-2.5 MG/3 ML AMPUL NEB PRN (01:38)
[2017-02-28] MEDS ORDERED: GLUCAGON,HUMAN RECOMB 1 MG INJ IM PRN (01:38)
[2017-02-28] MEDS ORDERED: DEXTROSE 50%-WATER 25 GM/50 ML DISP.SYRIN IV PRN ×2 (01:38)
[2017-02-28] MEDS ORDERED: GUAIFENESIN SYRP 200 MG/10 ML UDC PO PRN (01:46)
[2017-02-28] MEDS ORDERED: LEVOFLOXACIN 750 MG/D5W RTU 150 ML IV SCH (01:46)
[2017-02-28] MEDS ORDERED: PROMETHAZINE HCL 25 MG TABLET PO PRN (01:49)
[2017-02-28] MEDS ORDERED: ACETAMINOPHEN 325 MG TABLET PO PRN (01:49)
[2017-02-28] MEDS ORDERED: LEVOFLOXACIN 750 MG/D5W RTU 750 MG/150 ML RTUPB IV ONE (02:00)
[2017-02-28] MEDS ORDERED: VANCOMYCIN HCL 0 MG in DEXTROSE 5%-WATER 250 ML IV NR (02:00)
[2017-02-28] MEDS ORDERED: VANCOMYCIN HCL INJ 1000 MG VIAL IV PRN (02:02)
[2017-02-28 02:11] LABS: PROTHROMBIN TIME 13.6 SEC (11.4-15.4)
[2017-02-28 02:12] LABS: PARTIAL THROMBOPLASTIN TIME 34.3 SEC (23.5-35.8)
[2017-02-28] MEDS ORDERED: VANCOMYCIN HCL 1,000 MG in DEXTROSE 5%-WATER 250 ML IV ONE (02:15)
[2017-02-28] MEDS ORDERED: VANCOMYCIN HCL INJ 1000 MG VIAL ONE (02:32)
--- NOTE | 2017-02-28 03:32 | PDOC H&P ---
History of Present Illness Admission Date/PCP: 02/27/17 20:33 ENZO ERVIN, History of Present Illness: SOPHY GOMEZ is a 76 year old -[place] somewhat complicated recent medical history, consisting of transfer from our facility to [facility] in August of this year for perforated esophagus. See below. Patient has been discussed with emergency room physician who evaluated the patient. ER physician note pending at this point in time. Patient describes slowly progressive shortness of breath for the past 3 weeks, but in particular over the last 10 days. She has had nausea with one episode of vomiting. Mild dull chest discomfort only after her emesis. Positive shaking chills. Occasional mild dry cough. No diarrhea or dysuria, or abdominal discomfort. No chronic pulmonary disease. Does have obstructive sleep apnea, but is not compliant with CPAP mask. Long history of chronic kidney disease, which progressed to end-stage renal disease while at [facility]. Has remained on dialysis since then. Was actually transferred from local dialysis center to our emergency room this evening prior to her dialysis session being complete, due to her shortness of breath. Hospitalized at [facility] August 10 - September 06 of this year for above issue. During that time span, underwent esophageal stent placement with subsequent exchange, along with endoscopic placement of duodenal feeding tube, followed by placement of percutaneous gastrojejunostomy tube. Feeding tube has subsequently been removed. History and physical and discharge summary from [facility] have been reviewed. Spent 1 month in [facility] post discharge from [facility]. Initially was ambulating with a walker; now has progressed to needing only a cane. No hospitalization since the above stay at [facility]. Prior to my being called, the emergency room physician did speak with thoracic surgery at [facility]. They felt that thoracentesis by interventional radiology was warranted, and suggested transfer to their facility under the hospitalist service. However, according to emergency room physician, hospital bed will not be available at [facility] for at least 48-72 hours. Dictation via voice recognition software. Laboratory results are listed in [employer] and are reviewed. X-ray summary results are listed below, with full report(s) reviewed. . EKG reviewed and compared to prior tracing from August 10 of this year. Social history/personal habits: Single. Lives alone. No children. Unemployed. No use of alcohol tobacco or illicit drugs. Allergies/adverse reactions are listed in [employer] and are reviewed. Home medications initially autopopulated into [employer] may not accurately reflect patient's true medications, dosages, and/or frequencies. histotechnician to reconcile medications. Unfortunately, patient not certain of all medications/dosages/frequencies. REVIEW OF SYSTEMS: Constitutional: See history and present illness. Eyes: Wears glasses ENT: Intermittent problems with dysphagia since the above perforation. Denies hearing loss. Pulmonary: See history and present illness. Cardiovascular: See history and present illness. Gastrointestinal: See history and present illness. Skin: No current complaints, including rashes. Hematologic: Denies easy bruising. Neurologic: Prior stroke with mild residual right hemiparesis. Musculoskeletal: Joint pain from arthritis. Psychiatric: Denies anxiety or depression. Endocrine: No current complaints, including polyuria. Genitourinary: No current complaints, including dysuria. PHYSICAL EXAMINATION: 5 feet 6 inches tall. 61.3 kg. BMI 21.8 kg/m.All temperature 98.3. Blood pressure 175/86. Pulse 84 and regular. Respirations are 18 and unlabored. 92 % saturation on room air. Thin otherwise well-developed -[place] female appearing approximately her stated age. Appears to feel a bit under the weather, so to speak, and perhaps be slightly fatigued. Otherwise, awake alert and cooperative. No obvious distress other than somewhat anxious. Female floor nurse Omayra Vargas is present. Skin is warm and dry. No grossly obvious evidence of rash in areas of skin examined. No subcutaneous nodules palpated. ENT: Hearing grossly normal to normal conversation. Tongue midline on protrusion pink and slightly tacky. Eyes: No scleral icterus. Pupils equal and reactive to light at 4 mm. Dequincy conjunctivae. Neck is supple and nontender to gentle active range of motion and palpation. Midline trachea. No palpable thyroid nodule mass enlargement or tenderness. Lymphatic: No palpable cervical or clavicular nodes. Neck and lymphatic exams limited by patient body habitus. Psychiatric: Reasonable insight into acute and chronic medical issues. Oriented to time location and why here. Lungs: Auscultation reveals clear and equal breath sounds bilaterally. No use of accessory respiratory muscles. Cardiovascular: Heart regular rate and rhythm, without gallop murmur or rub. No carotid or abdominal aortic bruits. No ankle or pedal edema. Faintly palpable dorsalis pedis pulses. Abdomen:soft slightly distended nontender with positive bowel sounds. Unable to adequately evaluate abdomen for masses or organomegaly due to distention. Extremities: Feet are warm and dry. No calf tenderness to compression. No grossly obvious visual evidence of calf swelling. Gentle manipulation of lower extremities fails to reveal any obvious evidence of injury or instability to knees hips or ankles. Neurologic: Moves upper extremities grossly normally. Patellar reflexes absent. Absent Babinski. Light touch is intact at feet. Dorsiflexion and plantarflexion of feet 4 / 5 and symmetric. Past Medical History Cardiac Medical History: Reports: Congestive Heart Failure - Possible, Coronary Artery Disease, Hyperlipidema, Hypertension, Heart Murmur Denies: Atrial Fibrillation, DVT, Myocardial Infarction, Peripheral Vascular Disease, Pulmonary Embolism Pulmonary Medical History: Reports: Bronchitis - 30 years ago, Sleep Apnea - Not compliant with CPAP mask Denies: Asthma, Chronic Obstructive Pulmonary Disease (COPD), Pneumonia, Respiratory Failure, Tuberculosis EENT Medical History: Reports: Eyes - Glasses, Throat - Chronic intermittent dysphagia since esophageal perforation. Denies: Ears Neurological Medical History: Reports: Ischemic CVA, Seizures - Distant history of seizure, felt to be secondary to antibiotic. Denies: Hemorrhagic CVA Endocrine Medical History: Reports: Diabetes Mellitus Type 1 Denies: Diabetes Mellitus Type 2, Hyperthyroidism, Hypothyroidism Renal/ Medical History: Reports: End Stage Renal Disease Malignancy Medical History: Reports: Colorectal Cancer - Status post colon resection in 2012 Denies: Breast Cancer, Cervical Cancer, Leukemia, Lung Cancer, Ovarian Cancer GI Medical History: Reports: Gastroesophageal Reflux Disease, Other - Esophageal perforation, August 2016 Denies: Cirrhosis, Crohn's Disease, Hiatal Hernia, Ulcerative Colitis Musculoskeltal Medical History: Reports: Arthritis Denies: Fibromyalgia Skin Medical History: Reports: None Psychiatric Medical History: Denies: Alcohol Dependency, Dementia, Depression, Substance Abuse, Tobacco Dependency Hematology: Reports: Anemia Denies: Hemophilia, Sickle Cell Disease Infectious Medical History: Denies: Hepatitis B, Hepatitis C, HIV Past Surgical History Past Surgical History: Reports: Orthopedic Surgery - neck , Other - Partial colectomy 2012; procedures related to esophageal perforation,08/25 Denies: Amputation, Appendectomy, Section, Cholecystectomy, Colostomy, Coronary Artery Bypass Graft, Gastric Bypass Surgery, Herniorrhaphy, Hysterectomy, Mastectomy, Pacemaker, Tonsillectomy, Tubal Ligation Social History Information Source: Patient, Emergency Med Personnel, [facility] Records Lives with: Alone Smoking Status: Never Smoker Frequency of Alcohol Use: None Hx Recreational Drug Use: No Drugs: None Hx Prescription Drug Abuse: No - Advance Directive Resuscitation Status: Full Code Surrogate healthcare decision maker:: Uncertain at this point in time Family History Family History: CAD, CVA, DM, Hypertension, Malignancy - Mother had breast cancer Parental Family History Reviewed: Yes - Mother alive at 96; father of myocardial infarction Children Family History Reviewed: NA Sibling(s) Family History Reviewed.: Yes - Healthy Medication/Allergy Home Medications: Acetaminophen [Children's Acetaminophen] 20 ml PO Q6HP PRN 02/27/17 Amlodipine Besylate [Norvasc 10 mg Tablet] 10 mg PO DAILY 02/27/17 Atorvastatin Calcium [Lipitor 10 mg Tablet] 10 mg PO DAILY 02/27/17 Doxazosin Mesylate [Cardura 2 mg Tablet] 2 mg PO DAILY 02/27/17 Furosemide [Lasix 20 mg Tablet] 20 mg PO DAILY 02/27/17 Hydralazine HCl 100 mg PO DAILY 02/27/17 Insulin Glargine,Hum.rec.anlog [Toujeo Solostar] 10 units SQ QHS 02/27/17 Linezolid [Zyvox] 30 ml PO BID 02/27/17 Metoclopramide HCl [Reglan Oral Soln 10 mg/10 ml Udcup] 10 ml PO ACHS 02/27/17 Ranitidine HCl [Zantac] 300 mg PO BID 02/27/17 Sodium Bicarbonate [Antacid] 650 mg PO DAILY 02/27/17 Allergies/Adverse Reactions: Shellfish * Allergy (Severe, Verified 04/10/15 18:06) Anaphylaxis Penicillins Allergy (Unknown, Verified 04/10/15 18:06) Anaphylaxis prednisone [Prednisone] Allergy (Unknown, Verified 04/10/15 18:06) Sulfa (Sulfonamide Antibiotics) Allergy (Unknown, Verified 04/10/15 18:06) Anaphylaxis Physical Exam Vital Signs: Temp Pulse Resp BP Pulse Ox 98.3 F 84 18 175/66 H 92 02/27/17 23:30 02/27/17 23:30 02/27/17 23:30 02/27/17 23:30 02/27/17 23:30 Intake & Output 02/27/17 02/28/17 03/01/17 00:59 00:59 00:59 Weight 61.3 kg Results Laboratory Results: 02/28/17 01:55 Troponin I < 0.012 Impressions: Chest X-Ray 02/27/17 15:36 IMPRESSION: Large confluent density right upper lobe -collapse versus consolidation. Possible infiltrate versus asymmetrical vascular congestion right lower lung zone. Diffuse markings on left may be secondary to pulmonary edema and vascular congestion. These findings represent a dramatic change since the previous CT of 08/09/2016. Chest CT 02/27/17 17:21 IMPRESSION: INTERVAL DEVELOPMENT OF LOCULATED RIGHT SIDED PLEURAL EFFUSION DESCRIBED ABOVE PRESUMABLY SEQUELA TO PRIOR ESOPHAGEAL PERFORATION. DIFFERENTIAL INCLUDES STERILE PLEURAL EFFUSION OR EMPYEMA. ADDITIONAL FREE-FLOWING PLEURAL EFFUSIONS RIGHT GREATER THAN LEFT LUNG BASES AGAIN COULD BE STERILE OR INFECTED. MULTIFOCAL AIRSPACE DISEASE MOST SEVERELY INVOLVING THE RIGHT LOWER LOBE COMPATIBLE WITH PNEUMONIA. AGAIN NOTED IS DILATED DISTAL ESOPHAGUS. RESIDUAL/RECURRENT PERFORATION CANNOT BE ENTIRELY EXCLUDED HOWEVER NO FREE AIR IDENTIFIED. Assessment & Plan - Diagnosis (1) Diabetes mellitus type 1 Qualifiers: Diabetes mellitus complication status: with unspecified complications Qualified Code(s): E10.8 - Type 1 diabetes mellitus with unspecified complications Is this a current diagnosis for this admission?: Yes Plan: Diabetic cardiac dialysis diet. Accu-Cheks with appropriate sliding scale coverage. Resume home medications as appropriate once these have been determined and reviewed. (2) HLD (hyperlipidemia) Qualifiers: Hyperlipidemia type: unspecified Qualified Code(s): E78.5 - Hyperlipidemia , unspecified Is this a current diagnosis for this admission?: Yes Plan: Resume home medications as appropriate once these have been determined and reviewed. (3) HTN (hypertension) Qualifiers: Hypertension type: essential hypertension Qualified Code(s): I10 - Essential (primary) hypertension Is this a current diagnosis for this admission?: Yes Plan: Resume home medications as appropriate once these have been determined and reviewed. (4) hist esoph perforation Is this a current diagnosis for this admission?: Yes (5) Pleural effusion on right Is this a current diagnosis for this admission?: Yes Plan: I have ordered ultrasound-guided thoracentesis, with appropriate labs to be performed on fluid obtained. With concern for possible empyema, will add intravenous metronidazole. Possible eventual transfer to [facility]. (6) Pleural effusion on left Is this a current diagnosis for this admission?: Yes (7) Multifocal pneumonia Is this a current diagnosis for this admission?: Yes Plan: Patient will be admitted under pneumonia protocol. Incentive spirometry twice a day. As needed duo nebs. Antibiotics will consist of intravenous Levaquin and vancomycin, along with aztreonam. Pharmacy to assist with antibiotic dosing. I strongly encouraged patient to notify staff should patient feel that breathing is worsening. Patient is a full code. I have strongly encouraged patient not to get out of bed without notifying staff , to avoid a fall with injury. Knee high SCDs for DVT prophylaxis, along with subcutaneous heparin. Impression and plans were discussed with patient who concurs. Time spent in evaluation and management of patient: 78 minutes. (8) ESRD (end stage renal disease) on dialysis Is this a current diagnosis for this admission?: Yes Plan: Nephrology consult - Time Time Spent: Greater than 70 Minutes Anticipated discharge: [facility] Within: within 72 hours - Inpatient Certification Based on my medical assessment, after consideration of the patient's comorbidities, presenting symptoms, or acuity I expect that the services needed warrant INPATIENT care.: Yes I certify that my determination is in accordance with my understanding of Medicare's requirements for reasonable and necessary INPATIENT services [42 CFR 412.3e].: Yes Medical Necessity: Need Close Monitoring Due to Risk of Patient Decompensation, Need For Continuous Telemetry Monitoring, Need for Nebulizer Therapy and Monitoring of Response, Need for IV Antibiotics, Risk of Diagnosis Which Will Require Inpatient Eval/Care/Monitoring Post Hospital Care: D/C or Transfer Summary
[2017-02-28 06:23] LABS: ABSOLUTE BASOPHILS # (AUTO) 0.1 10^3/uL (0.0-0.2); ABSOLUTE EOSINOPHILS # (AUTO) 0.1 10^3/uL (0.0-0.6); ABSOLUTE LYMPHOCYTES (AUTO) 0.7 10^3/uL (0.5-4.7); ABSOLUTE MONOCYTES (AUTO) 0.4 10^3/uL (0.1-1.4); ABSOLUTE NEUT (AUTO) 3.5 10^3/uL (1.7-8.2); BASOPHILS % (AUTO) 1.4 % (0-2); EOSINOPHILS % (AUTO) 1.1 % (0-6); HEMATOCRIT 30.7 % (36.0-47.0); HEMOGLOBIN 10.2 g/dL (12.0-15.5); HGB HCT DIFFERENCE -0.1; LYMPHOCYTES % (AUTO) 14.5 % (13-45); MEAN CORPUSCULAR HEMOGLOBIN 29.4 pg (27.0-33.4); MEAN CORPUSCULAR HGB CONC 33.2 g/dL (32.0-36.0); MEAN CORPUSCULAR VOLUME 89 fl (80-97); RED BLOOD COUNT 3.47 10^6/uL (3.72-5.28); RED CELL DISTRIBUTION WIDTH 16.6 % (11.5-14.0); WHITE BLOOD COUNT 4.7 10^3/uL (4.0-10.5)
[2017-02-28 06:41] LABS: ANION GAP 8 (5-19); BLOOD UREA NITROGEN 28 mg/dL (7-20); CARBON DIOXIDE 26 mmol/L (22-30); CHLORIDE 104 mmol/L (98-107); CREATININE RESULT 2.49 mg/dL (0.52-1.25); GLUCOSE 139 mg/dL (75-110); POTASSIUM 5.1 mmol/L (3.6-5.0); SODIUM 138.4 mmol/L (137-145)
[2017-02-28] MEDS: METRONIDAZOLE 500 MG/NS RTU 100 ML IV SCH ×3 (08:07→22:25)
[2017-02-28] MEDS: ATORVASTATIN CALCIUM 10 MG TABLET PO SCH (09:30)
[2017-02-28] MEDS: SODIUM BICARBONATE 650 MG TABLET PO SCH (09:30)
[2017-02-28] MEDS: HYDRALAZINE HCL 50 MG TABLET PO SCH (09:31)
[2017-02-28] MEDS: AMLODIPINE BESYLATE 10 MG TABLET PO SCH (09:33)
[2017-02-28] MEDS: HEPARIN SOD (PORCINE) 5,000 UNIT/ML 1 ML SYRINGE SUBCUT SCH ×2 (10:08→22:25)
--- NOTE | 2017-02-28 12:19 | PDOC CONSULTATION ---
Consultation Consult Date: 02/28/17 Consult reason:: ESRD History of Present Illness Admission Date/PCP: 02/28/17 01:38 ENZO ERVIN, History of Present Illness: SOPHY GOMEZ is a 76 year old -[place] with history of ESRD in the background of hypertension and recent progression from CKD 4 to ESRD after hospitalization for ruptured esophagus in August 2016. Was actually transferred yesterday from [facility] to our emergency room prior to her dialysis session being complete, due to her shortness of breath. She also had almost 3/4 of a dialysis session prior to her transfer. Patient describes slowly progressive shortness of breath for the past 3 weeks, but in particular over the last 10 days. Mild dull chest discomfort only after her emesis. Positive shaking chills. Occasional mild dry cough. No diarrhea or dysuria, or abdominal discomfort.She also describes this solid dysphagia ongoing for the last month or so. Therefore her food and fluid intake is also suffered.She still continues to have decent amount of residual renal function. No chronic pulmonary disease. Does have obstructive sleep apnea, but is not compliant with CPAP mask. Hospitalized at [facility] August 10 - September 06 of this year for above issue. During that time span, underwent esophageal stent placement with subsequent exchange, along with endoscopic placement of duodenal feeding tube, followed by placement of percutaneous gastrojejunostomy tube. Feeding tube is subsequently been removed. History and physical and discharge summary have been reviewed. Spent 1 month in half-way post discharge from [facility]. Initially was ambulating with a walker; now his progressed to needing only a cane. No hospitalization since the above stay at [facility]. The emergency room physician did speak with thoracic surgery at [facility]. They felt that thoracentesis by interventional radiology was warranted , and suggested transfer to their facility under the hospitalist service. However, according to emergency room physician, hospital bed will not be available at [facility] for at least 48-72 hours. Since admission she has gone on to have a CT scan of her chest which shows large loculated pleural effusion involving the right upper lobe of approximately 11 cm.She is also got multifocal airspace disease involving both lungs but mainly of the right side. Is also got a dilated distal esophagus.She has been begun on antibiotics. She has been also consulted with Dr. Kwong/ GI.Presently the patient feels that she has some difficulty to breathe especially when she lays down but if she is sitting up she is fine. She has no pedal edema. She is making decent amounts of urine.She denies any history of fever chills or riders of the moment. No chest pains. Past Medical History Cardiac Medical History: Reports: Coronary Artery Disease, Heart Murmur, Hyperlipidemia, Hypertension-primary Denies: Atrial Fibrillation, DVT, Myocardial Infarction, Peripheral Vascular Disease, Pulmonary Embolism Pulmonary Medical History: Reports: Bronchitis - 30 years ago, Sleep Apnea - Not compliant with CPAP mask Denies: Asthma, Chronic Obstructive Pulmonary Disease (COPD), Pneumonia, Respiratory Failure, Tuberculosis EENT Medical History: Reports: Eyes - Glasses, Throat - Chronic intermittent dysphagia since esophageal perforation. Denies: Ears Neurological Medical History: Reports: Ischemic CVA, Seizures - Distant history of seizure, felt to be related to antibiotic. Denies: Hemorrhagic CVA Endocrine Medical History: Reports: Diabetes Mellitus Type 1 Denies: Diabetes Mellitus Type 2, Hyperthyroidism, Hypothyroidism Renal/ Medical History: Reports: End Stage Renal Disease Denies: Benign Prostatic Hyperplasia Malignancy Medical History: Reports: Colorectal Cancer - Status post colon resection in 2012 Denies: Breast Cancer, Cervical Cancer, Leukemia, Lung Cancer, Ovarian Cancer GI Medical History: Reports: Gastroesophageal Reflux Disease, Other - Esophageal perforation, August 2016 Denies: Cirrhosis, Crohn's Disease, Hiatal Hernia, Ulcerative Colitis Musculoskeltal Medical History: Reports: Arthritis Denies: Fibromyalgia, Rheumatoid Arthritis, Systemic Lupus Erythematosus Skin Medical History: Reports: None Psychiatric Medical History: Denies: Alcohol Dependency, Dementia, Depression, Substance Abuse, Tobacco Dependency Infectious Medical History: Denies: Hepatitis B, Hepatitis C, HIV Hematology Medical History: Reports Anemia of Chronic Kidney Disease Past Surgical History Past Surgical History: Reports: Orthopedic Surgery - neck , Other - Partial colectomy 2012; procedures related to esophageal perforation,08/25 Denies: Appendectomy, Section, Cholecystectomy, Colostomy, Coronary Artery Bypass Graft, Gastric Bypass Surgery, Herniorrhaphy, Hysterectomy, Mastectomy, Pacemaker, Tonsillectomy, Tubal Ligation Social History Lives with: Alone Smoking Status: Never Smoker Frequency of Alcohol Use: None Hx Recreational Drug Use: No Drugs: None Hx Prescription Drug Abuse: No - Advance Directive Resuscitation Status: Full Code Family History Parental Family History Reviewed: Yes - Negative for CKD. Children Family History Reviewed: No Sibling(s) Family History Reviewed.: No Medication/Allergy Home Medications: Acetaminophen [Children's Acetaminophen] 20 ml PO Q6HP PRN 02/27/17 Amlodipine Besylate [Norvasc 10 mg Tablet] 10 mg PO DAILY 02/27/17 Atorvastatin Calcium [Lipitor 10 mg Tablet] 10 mg PO DAILY 02/27/17 Doxazosin Mesylate [Cardura 2 mg Tablet] 2 mg PO DAILY 02/27/17 Furosemide [Lasix 20 mg Tablet] 20 mg PO DAILY 02/27/17 Hydralazine HCl 100 mg PO DAILY 02/27/17 Insulin Glargine,Hum.rec.anlog [Toujeo Solostar] 10 units SQ QHS 02/27/17 Linezolid [Zyvox] 30 ml PO BID 02/27/17 Metoclopramide HCl [Reglan Oral Soln 10 mg/10 ml Udcup] 10 ml PO ACHS 02/27/17 Ranitidine HCl [Zantac] 300 mg PO BID 02/27/17 Sodium Bicarbonate [Antacid] 650 mg PO DAILY 02/27/17 Allergies/Adverse Reactions: Shellfish * Allergy (Severe, Verified 04/10/15 18:06) Anaphylaxis Penicillins Allergy (Unknown, Verified 04/10/15 18:06) Anaphylaxis prednisone [Prednisone] Allergy (Unknown, Verified 04/10/15 18:06) Sulfa (Sulfonamide Antibiotics) Allergy (Unknown, Verified 04/10/15 18:06) Anaphylaxis Review of Systems Constitutional: PRESENT: anorexia, chills, fatigue, weakness. ABSENT: fever(s) , headache(s), night sweats Eyes: ABSENT: visual disturbances Ears: ABSENT: hearing changes Nose, Mouth, and Throat: ABSENT: mouth pain, sore throat, vertigo Cardiovascular: PRESENT: dyspnea on exertion, orthropnea. ABSENT: chest pain, edema Respiratory: PRESENT: cough, dyspnea. ABSENT: hemoptysis Gastrointestinal: PRESENT: dysphagia, nausea. ABSENT: abdominal pain, coffee ground emesis, heartburn, hematemesis, hematochezia, melena, vomiting Genitourinary: ABSENT: difficulty urinating, dysuria, hematuria Integumentary: ABSENT: lesions, pruritus Neurological: ABSENT: abnormal movements, abnormal speech, convulsions, focal weakness, frequent falls, lack of coordination Psychiatric: ABSENT: anxiety, depression Hematologic/Lymphatic: ABSENT: easy bleeding, easy bruising, lymphadenopathy Physical Exam Vital Signs: Temp Pulse Resp BP Pulse Ox 98.5 F 79 16 150/68 H 95 02/28/17 11:41 02/28/17 11:41 02/28/17 11:41 02/28/17 11:41 02/28/17 11:41 Intake & Output 02/27/17 02/28/17 03/01/17 06:59 06:59 06:59 Intake Total 787 Balance 787 Weight 63.7 kg General appearance: PRESENT: no acute distress Eye exam: PRESENT: conjunctiva pink, EOMI, PERRLA. ABSENT: nystagmus Ear exam: PRESENT: normal external ear exam. ABSENT: bleeding, drainage Mouth exam: PRESENT: moist, neck supple Neck exam: ABSENT: lymphadenopathy, meningismus, tenderness, thyromegaly, tracheal deviation Respiratory exam: PRESENT: clear to auscultation jose, decreased breath sounds. ABSENT: crackles, rhonchi Cardiovascular exam: PRESENT: +S1, +S2, systolic murmur GI/Abdominal exam: PRESENT: normal bowel sounds, soft. ABSENT: organomegaly, tenderness Extremities exam: ABSENT: pedal edema Neurological exam: PRESENT: awake, oriented to person, oriented to place, oriented to time Skin exam: PRESENT: dry. ABSENT: erythema, mottled, rash Results Laboratory Results: 02/28/17 06:13 02/28/17 06:13 02/28/17 02/28/17 06:13 06:13 WBC 4.7 RBC 3.47 L Hgb 10.2 L Hct 30.7 L MCV 89 MCH 29.4 MCHC 33.2 RDW 16.6 H Plt Count 272 Seg Neutrophils % 75.0 Lymphocytes % 14.5 Monocytes % 8.0 Eosinophils % 1.1 Basophils % 1.4 Absolute Neutrophils 3.5 Absolute Lymphocytes 0.7 Absolute Monocytes 0.4 Absolute Eosinophils 0.1 Absolute Basophils 0.1 Sodium 138.4 Potassium 5.1 H Chloride 104 Carbon Dioxide 26 Anion Gap 8 BUN 28 H Creatinine 2.49 H Est GFR ( Amer) 23 L Est GFR (Non-Af Amer) 19 L Glucose 139 H Calcium 9.0 02/28/17 01:55 Troponin I < 0.012 Impressions: Chest X-Ray 02/27/17 15:36 IMPRESSION: Large confluent density right upper lobe -collapse versus consolidation. Possible infiltrate versus asymmetrical vascular congestion right lower lung zone. Diffuse markings on left may be secondary to pulmonary edema and vascular congestion. These findings represent a dramatic change since the previous CT of 08/09/2016. Chest CT 02/27/17 17:21 IMPRESSION: INTERVAL DEVELOPMENT OF LOCULATED RIGHT SIDED PLEURAL EFFUSION DESCRIBED ABOVE PRESUMABLY SEQUELA TO PRIOR ESOPHAGEAL PERFORATION. DIFFERENTIAL INCLUDES STERILE PLEURAL EFFUSION OR EMPYEMA. ADDITIONAL FREE-FLOWING PLEURAL EFFUSIONS RIGHT GREATER THAN LEFT LUNG BASES AGAIN COULD BE STERILE OR INFECTED. MULTIFOCAL AIRSPACE DISEASE MOST SEVERELY INVOLVING THE RIGHT LOWER LOBE COMPATIBLE WITH PNEUMONIA. AGAIN NOTED IS DILATED DISTAL ESOPHAGUS. RESIDUAL/RECURRENT PERFORATION CANNOT BE ENTIRELY EXCLUDED HOWEVER NO FREE AIR IDENTIFIED. Assessment & Plan - Diagnosis (1) Loculated pleural effusion Plan: Has large loculated right pleural effusion of approximately 11 cm. A small left basal.Differential includes empyema versus possible Syn pneumonic effusion.As per patient, awaiting radiological thoracentesis. (2) Multifocal pneumonia Is this a current diagnosis for this admission?: Yes Plan: High possibility of aspiration pneumonia given her esophageal history and findings on CT scan. Patient appropriately covered with antibiotics. (3) Esophageal stricture Plan: Await GI evaluation. (4) ESRD (end stage renal disease) on dialysis Is this a current diagnosis for this admission?: Yes Plan: Patient was dialyzed almost to her usual time yesterday without any issues. Not much of fluid was removed given the fact that she is clinically dry given her history.No indications for dialysis today. Most likely dialysis will be on Sunday unless she needs to have it tomorrow. Potassium was mildly high and needs to be watched. (5) HTN (hypertension) Qualifiers: Hypertension type: essential hypertension Qualified Code(s): I10 - Essential (primary) hypertension Is this a current diagnosis for this admission?: Yes Plan: Relatively controlled. Monitor.
--- NOTE | 2017-02-28 17:20 | RADIOLOGY REPORT (SQ) ---
EXAM DESCRIPTION: BARIUM SWALLOW ESOPHAGUS COMPLETED DATE/TIME: 02/28/2017 4:30 pm REASON FOR STUDY: Water-soluble contrast esophagram ;hx of perforation/stricture COMPARISON: CT chest 02/27/2017 TECHNIQUE: Under fluoroscopic guidance, patient ingested Isovue 300. Fluoroscopic spot images and ro utine radiographic images acquired and stored on PACS. 12 MM BARIUM TABLET GIVEN: No LIMITATIONS: None. FLUOROSCOPY TIME: 45 seconds 19 series of digital images saved to PACS. FINDINGS: Normal swallowing. No laryngeal penetration or subglottic aspiration. The upper 3rd of the esophagus is distended, grossly normal mucosa. About 3 cm inferior to the alhaji, a tight mid esophageal narrowing is present, with surrounding soft tissue density measuring about 6 x 10 cm in size. There is a jet of contrast which trickles through a tight stricture. Contrast passes stricture outlines a very irregular esophageal lumen which is di ffusely narrowed for about 10 cm. There is no contrast extravasation in this area. The distal most intrathoracic esophagus is normal caliber. There is contrast passing through a sharon l-appearing gastroesophageal junction into the stomach fundus. Patient has a right-sided central line with the tip in the superior vena cava, cervical fusion plate, and dental hardware. IMPRESSION: Tight stricture of the mid 3rd esophagus about 3 cm inferior to the alhaji. Remainder of the midesophagus is narrowed with a very irregular lumen, with mediastinal soft tissue a round its periphery. Distal 7 to 10 cm of esophagus is normal, normal flow into the fundus of the stomach. Results discussed with Dr. Kwong COMMENT: Quality ID [id number]: Final reports for procedures using fluoroscopy that document radiation exp osure indices, or exposure time and number of fluorographic images (if radiation exposure indices are not available) TECHNICAL DOCUMENTATION: JOB ID: [id number] [employer]- All Rights Reserved
[2017-02-28] MEDS ORDERED: VANCOMYCIN HCL 750 MG in DEXTROSE 5%-WATER 250 ML IV SCH (18:00)
[2017-02-28] MEDS: INSULIN GLARGINE,HUM.REC.ANLOG 1,000 UNIT/10 ML UNIT SUBCUT SCH (22:25)
[2017-03-01] MEDS: METRONIDAZOLE 500 MG/NS RTU 100 ML IV SCH ×4 (02:48→21:19)
[2017-03-01 06:06] LABS: ANION GAP 9 (5-19); BLOOD UREA NITROGEN 39 mg/dL (7-20); CALCIUM 8.9 mg/dL (8.4-10.2); CARBON DIOXIDE 25 mmol/L (22-30); CHLORIDE 103 mmol/L (98-107); CREATININE RESULT 3.06 mg/dL (0.52-1.25); GLUCOSE 77 mg/dL (75-110); POTASSIUM 5.2 mmol/L (3.6-5.0); SODIUM 136.9 mmol/L (137-145)
--- NOTE | 2017-03-01 08:23 | PDOC PROGRESS REPORT ---
Subjective Progress Note for:: 03/01/17 Subjective:: The patient states to feel slightly better. Her labs were slightly worse. She has not completed the dialysis portion. She was seen by the head of precision targeting and is scheduled for dialysis tomorrow. Long discussion with interventional radiology about possible thoracentesis. They do not feel comfortable doing the procedure without backup of CT surgeon. The patient recently had esophageal perforation with the need for repair. I think it would be reasonable for patient to be transferred to the tertiary center where her procedure for esophageal repair was done. Physical Exam Vital Signs: Temp Pulse Resp BP Pulse Ox 98.6 F 86 22 H 150/99 H 96 03/01/17 03:48 03/01/17 03:48 03/01/17 03:48 03/01/17 03:48 03/01/17 03:48 Intake & Output 02/28/17 03/01/17 03/02/17 06:59 06:59 06:59 Intake Total 787 987 Output Total 400 Balance 787 587 Weight 63.7 kg 64.7 kg General appearance: PRESENT: mild distress Eye exam: PRESENT: conjunctiva pink Neck exam: ABSENT: JVD Respiratory exam: PRESENT: crackles, rhonchi Cardiovascular exam: PRESENT: +S1, +S2 Pulses: PRESENT: +1 pedal pulses bilateral GI/Abdominal exam: PRESENT: normal bowel sounds, soft Extremities exam: PRESENT: full ROM Musculoskeletal exam: PRESENT: tenderness Neurological exam: PRESENT: alert, awake Results Laboratory Results: 02/28/17 06:13 03/01/17 05:05 03/01/17 05:05 Sodium 136.9 L Potassium 5.2 H Chloride 103 Carbon Dioxide 25 Anion Gap 9 BUN 39 H Creatinine 3.06 H Est GFR ( Amer) 18 L Est GFR (Non-Af Amer) 15 L Glucose 77 Calcium 8.9 02/28/17 01:55 Troponin I < 0.012 Impressions: Chest X-Ray 02/27/17 15:36 IMPRESSION: Large confluent density right upper lobe -collapse versus consolidation. Possible infiltrate versus asymmetrical vascular congestion right lower lung zone. Diffuse markings on left may be secondary to pulmonary edema and vascular congestion. These findings represent a dramatic change since the previous CT of 08/09/2016. Chest CT 02/27/17 17:21 IMPRESSION: INTERVAL DEVELOPMENT OF LOCULATED RIGHT SIDED PLEURAL EFFUSION DESCRIBED ABOVE PRESUMABLY SEQUELA TO PRIOR ESOPHAGEAL PERFORATION. DIFFERENTIAL INCLUDES STERILE PLEURAL EFFUSION OR EMPYEMA. ADDITIONAL FREE-FLOWING PLEURAL EFFUSIONS RIGHT GREATER THAN LEFT LUNG BASES AGAIN COULD BE STERILE OR INFECTED. MULTIFOCAL AIRSPACE DISEASE MOST SEVERELY INVOLVING THE RIGHT LOWER LOBE COMPATIBLE WITH PNEUMONIA. AGAIN NOTED IS DILATED DISTAL ESOPHAGUS. RESIDUAL/RECURRENT PERFORATION CANNOT BE ENTIRELY EXCLUDED HOWEVER NO FREE AIR IDENTIFIED. Esophagus X-Ray 02/28/17 00:00 IMPRESSION: Tight stricture of the mid 3rd esophagus about 3 cm inferior to the alhaji. Remainder of the midesophagus is narrowed with a very irregular lumen, with mediastinal soft tissue around its periphery. Distal 7 to 10 cm of esophagus is normal, normal flow into the fundus of the stomach. Results discussed with Dr. Kwong Assessment & Plan - Diagnosis (1) Loculated pleural effusion Is this a current diagnosis for this admission?: Yes Plan: We will need to be transferred to a tertiary care center for thoracentesis with the CT surgery backup (2) Multifocal pneumonia Is this a current diagnosis for this admission?: Yes Plan: Continue broad-spectrum coverage with antibiotics (3) Pleural effusion on right Is this a current diagnosis for this admission?: Yes Plan: We will need to CT drainage (4) ESRD (end stage renal disease) on dialysis Is this a current diagnosis for this admission?: Yes Plan: We will need to be dialyzed tomorrow (5) Diabetes Qualifiers: Diabetes mellitus type: type 2 Diabetes mellitus complication status: with kidney complications Chronic kidney disease stage: on chronic dialysis Plan: Continue current treatment
[2017-03-01] MEDS: HYDRALAZINE HCL 50 MG TABLET PO SCH (10:22)
[2017-03-01] MEDS: HEPARIN SOD (PORCINE) 5,000 UNIT/ML 1 ML SYRINGE SUBCUT SCH ×2 (10:23→23:27)
[2017-03-01] MEDS: ATORVASTATIN CALCIUM 10 MG TABLET PO SCH (10:23)
[2017-03-01] MEDS: SODIUM BICARBONATE 650 MG TABLET PO SCH (10:23)
[2017-03-01] MEDS: AMLODIPINE BESYLATE 10 MG TABLET PO SCH (10:23)
--- NOTE | 2017-03-01 12:47 | PDOC PROGRESS REPORT ---
Subjective Progress Note for:: 03/01/17 Subjective:: Patient was happy and smiling in her bed when I came to talk to her. She continues to have shortness of breath. Does not feel it getting worse. She denies any chest pain or heart palpitations. She does not feel fluid overloaded. She does have some esophageal regurgitation. Physical Exam Vital Signs: Temp Pulse Resp BP Pulse Ox 98.6 F 91 22 H 168/65 H 94 03/01/17 07:46 03/01/17 07:46 03/01/17 07:46 03/01/17 07:46 03/01/17 07:46 Intake & Output 02/28/17 03/01/17 03/02/17 06:59 06:59 06:59 Intake Total 787 987 Output Total 400 Balance 787 587 Weight 63.7 kg 64.7 kg General appearance: PRESENT: no acute distress, well-developed, well-nourished Head exam: PRESENT: atraumatic, normocephalic Neck exam: PRESENT: full ROM. ABSENT: JVD, tracheal deviation Respiratory exam: PRESENT: crackles, rhonchi, tachypnea. ABSENT: accessory muscle use, chest wall tenderness, clear to auscultation jose Cardiovascular exam: PRESENT: +S1, +S2, systolic murmur, tachycardia GI/Abdominal exam: PRESENT: normal bowel sounds, soft. ABSENT: organomegaly, tenderness Extremities exam: PRESENT: full ROM. ABSENT: pedal edema Musculoskeletal exam: PRESENT: normal inspection. ABSENT: deformity Neurological exam: PRESENT: alert, awake, oriented to person, oriented to place , oriented to time, oriented to situation Psychiatric exam: PRESENT: appropriate affect, normal mood Skin exam: PRESENT: dry, intact, warm Results Laboratory Results: 02/28/17 06:13 03/01/17 05:05 03/01/17 05:05 Sodium 136.9 L Potassium 5.2 H Chloride 103 Carbon Dioxide 25 Anion Gap 9 BUN 39 H Creatinine 3.06 H Est GFR ( Amer) 18 L Est GFR (Non-Af Amer) 15 L Glucose 77 Calcium 8.9 02/28/17 01:55 Troponin I < 0.012 Impressions: Chest X-Ray 02/27/17 15:36 IMPRESSION: Large confluent density right upper lobe -collapse versus consolidation. Possible infiltrate versus asymmetrical vascular congestion right lower lung zone. Diffuse markings on left may be secondary to pulmonary edema and vascular congestion. These findings represent a dramatic change since the previous CT of 08/09/2016. Chest CT 02/27/17 17:21 IMPRESSION: INTERVAL DEVELOPMENT OF LOCULATED RIGHT SIDED PLEURAL EFFUSION DESCRIBED ABOVE PRESUMABLY SEQUELA TO PRIOR ESOPHAGEAL PERFORATION. DIFFERENTIAL INCLUDES STERILE PLEURAL EFFUSION OR EMPYEMA. ADDITIONAL FREE-FLOWING PLEURAL EFFUSIONS RIGHT GREATER THAN LEFT LUNG BASES AGAIN COULD BE STERILE OR INFECTED. MULTIFOCAL AIRSPACE DISEASE MOST SEVERELY INVOLVING THE RIGHT LOWER LOBE COMPATIBLE WITH PNEUMONIA. AGAIN NOTED IS DILATED DISTAL ESOPHAGUS. RESIDUAL/RECURRENT PERFORATION CANNOT BE ENTIRELY EXCLUDED HOWEVER NO FREE AIR IDENTIFIED. Esophagus X-Ray 02/28/17 00:00 IMPRESSION: Tight stricture of the mid 3rd esophagus about 3 cm inferior to the alhaji. Remainder of the midesophagus is narrowed with a very irregular lumen, with mediastinal soft tissue around its periphery. Distal 7 to 10 cm of esophagus is normal, normal flow into the fundus of the stomach. Results discussed with Dr. Kwong Assessment & Plan - Diagnosis (1) Loculated pleural effusion Is this a current diagnosis for this admission?: Yes Plan: Will be transferred to [facility] to have a pleurocentesis with backup of CT surgery (2) ESRD (end stage renal disease) on dialysis Is this a current diagnosis for this admission?: Yes Plan: We will dialyze the patient tomorrow. Currently potassium is 5.2 patient does not look fluid overloaded. No indication for emergent dialysis today. (3) HTN (hypertension) Qualifiers: Hypertension type: essential hypertension Qualified Code(s): I10 - Essential (primary) hypertension Is this a current diagnosis for this admission?: Yes Plan: Recommend increasing hydralazine to twice daily for better control (4) Multifocal pneumonia Is this a current diagnosis for this admission?: Yes Plan: Continue on broad-spectrum antibiotics. Will need another sputum culture previous one sent was not adequate enough. (5) Diabetes mellitus type 1 Qualifiers: Diabetes mellitus complication status: with unspecified complications Qualified Code(s): E10.8 - Type 1 diabetes mellitus with unspecified complications Is this a current diagnosis for this admission?: Yes Plan: controlled
[2017-03-01] MEDS ORDERED: MAG HYDROX/AL HYDROX/SIMETH SUSP 30 ML UDCUP PO ONE (18:30)
[2017-03-01] MEDS ORDERED: FAMOTIDINE INJ/PF 20 MG/2 ML SDV IV ONE (18:30)
[2017-03-01] MEDS ORDERED: LEVOFLOXACIN 500 MG/D5W RTU 500 MG/100 ML RTUPB IV SCH (22:00)
[2017-03-01] MEDS: INSULIN GLARGINE,HUM.REC.ANLOG 1,000 UNIT/10 ML UNIT SUBCUT SCH (23:27)
[2017-03-02] MEDS: METRONIDAZOLE 500 MG/NS RTU 100 ML IV SCH ×2 (03:34→11:33)
[2017-03-02] MEDS ORDERED: HEPARIN SOD (PORCINE) 1,000 UNIT/ML 10 ML VIAL IV PRN (05:00)
[2017-03-02] MEDS ORDERED: FAMOTIDINE INJ/PF 20 MG/2 ML SDV IV SCH (06:00)
[2017-03-02 06:43] LABS: HEMATOCRIT 30.4 % (36.0-47.0); HEMOGLOBIN 10.2 g/dL (12.0-15.5); HGB HCT DIFFERENCE 0.2; MEAN CORPUSCULAR HEMOGLOBIN 29.5 pg (27.0-33.4); MEAN CORPUSCULAR HGB CONC 33.5 g/dL (32.0-36.0); MEAN CORPUSCULAR VOLUME 88 fl (80-97); RED BLOOD COUNT 3.45 10^6/uL (3.72-5.28); RED CELL DISTRIBUTION WIDTH 16.6 % (11.5-14.0); WHITE BLOOD COUNT 5.9 10^3/uL (4.0-10.5)
[2017-03-02 06:53] LABS: ANION GAP 10 (5-19); BLOOD UREA NITROGEN 43 mg/dL (7-20); CALCIUM 9.4 mg/dL (8.4-10.2); CARBON DIOXIDE 24 mmol/L (22-30); CHLORIDE 106 mmol/L (98-107); CREATININE RESULT 3.25 mg/dL (0.52-1.25); GLUCOSE 77 mg/dL (75-110); POTASSIUM 5.3 mmol/L (3.6-5.0); SODIUM 139.9 mmol/L (137-145)
[2017-03-02] MEDS ORDERED: EPOETIN ALFA 10,000 UNIT in SYRINGE, DISPOSABLE, 1 EACH IV PRN (07:41)
--- NOTE | 2017-03-02 09:41 | PDOC TRANSFER SUMMARY ---
General Admission Date/PCP: 02/28/17 01:38 ENZO ERVIN, Admission Date: 02/28/17 Transfer Date: 03/02/17 Accepting Facility: [facility] Resuscitation Status: Full Code - Transfer Diagnosis (1) Loculated pleural effusion Is this a current diagnosis for this admission?: Yes Diagnosis Summary: Most likely will need VATS. Patient had perforated esophagus repair at [facility] in late August. She notes progressive SOB since then. Denies any fevers or chills. She is now unable to lie supine due to dyspnea (2) Pleural effusion on right Is this a current diagnosis for this admission?: Yes Diagnosis Summary: As above (3) ARF (acute renal failure) Is this a current diagnosis for this admission?: Yes Diagnosis Summary: Patient is on hemodialysis on Sun-Sun -Sun schedule. Was dialyzed this morning (4) CKD (chronic kidney disease) stage 4, GFR 15-29 ml/min Is this a current diagnosis for this admission?: Yes Diagnosis Summary: As above (5) Diabetes Is this a current diagnosis for this admission?: Yes Diagnosis Summary: Continue home medications and sliding scale coverage (6) Hypertension associated with diabetes Is this a current diagnosis for this admission?: Yes Diagnosis Summary: Presently normotensive on current medications - Transfer Medications Home Medications: Acetaminophen [Children's Acetaminophen] 20 ml PO Q6HP PRN 02/27/17 Amlodipine Besylate [Norvasc 10 mg Tablet] 10 mg PO DAILY 02/27/17 Atorvastatin Calcium [Lipitor 10 mg Tablet] 10 mg PO DAILY 02/27/17 Doxazosin Mesylate [Cardura 2 mg Tablet] 2 mg PO DAILY 02/27/17 Furosemide [Lasix 20 mg Tablet] 20 mg PO DAILY 02/27/17 Hydralazine HCl 100 mg PO DAILY 02/27/17 Insulin Glargine,Hum.rec.anlog [Toujeo Solostar] 10 units SQ QHS 02/27/17 Linezolid [Zyvox] 30 ml PO BID 02/27/17 Metoclopramide HCl [Reglan Oral Soln 10 mg/10 ml Udcup] 10 ml PO ACHS 02/27/17 Ranitidine HCl [Zantac] 300 mg PO BID 02/27/17 Sodium Bicarbonate [Antacid] 650 mg PO DAILY 02/27/17 Transfer Medications: Current Medications Acetaminophen (Tylenol 325 Mg Tablet) 650 mg PO Q8HP PRN Stop: 03/30/17 01:48 Albuterol/Ipratropium (Duoneb 3 Ml Ampul) 3 ml NEB RTQ4HP PRN Stop: 03/30/17 01:37 Amlodipine Besylate (Norvasc 10 Mg Tablet) 10 mg PO DAILY YAZAN Stop: 03/30/17 09:59 Last Admin: 03/01/17 10:23 Dose: 10 mg Atorvastatin Calcium (Lipitor 10 Mg Tablet) 10 mg PO DAILY YAZAN Stop: 03/30/17 09:59 Last Admin: 03/01/17 10:23 Dose: 10 mg Dextrose (Dextrose Inj 50% Syringe (25 Gm/50 Ml)) 12.5 gm IV PRN PRN; Protocol PRN Reason: FOR BG 50-69 IN ALERT PATIENT Stop: 03/30/17 01:37 Dextrose (Dextrose Inj 50% Syringe (25 Gm/50 Ml)) 25 gm IV PRN PRN PRN Reason: Protocol Stop: 03/30/17 01:37 Famotidine (Pepcid Inj/Pf 20 Mg/2 Ml Sdv) 10 mg IV Q12A YAZAN Stop: 04/01/17 05:59 Last Admin: 03/02/17 06:10 Dose: 10 mg Glucagon (Glucagen Inj 1 Mg Vial) 1 mg IM PRN PRN; Protocol PRN Reason: Evaluate for BG < 70 Stop: 03/30/17 01:37 Glucose (Glutose 40% Gel 15 Gm Tube) 15 gm PO PRN PRN; Protocol PRN Reason: FOR BG 50-69 IN ALERT PATIENT Stop: 03/30/17 01:37 Glucose (Glutose 40% Gel 15 Gm Tube) 30 gm PO PRN PRN; Protocol PRN Reason: FOR BG < 50 IN ALERT PATIENT Stop: 03/30/17 01:37 Guaifenesin (Robitussin Syrup 200 Mg/10 Ml Ud Cup) 200 mg PO Q4HP PRN PRN Reason: COUGH Stop: 03/30/17 01:45 Heparin Sodium (Porcine) (Heparin Inj 5,000 Units/Ml 1 Ml Syringe) 5,000 unit SUBCUT Q12 YAZAN Stop: 03/30/17 09:59 Last Admin: 03/01/17 23:27 Dose: 5,000 unit Hydralazine HCl (Apresoline 50 Mg Tablet) 100 mg PO DAILY YAZAN Stop: 03/30/17 09:59 Last Admin: 03/01/17 10:22 Dose: 100 mg Metronidazole (Flagyl Rtu 500 Mg/Ns 100ml Premix) 100 mls @ 100 mls/hr IV Q6A YAZAN Stop: 03/07/17 01:59 Last Admin: 03/02/17 03:34 Dose: 100 ml Vancomycin HCl 750 mg/ (Dextrose) 250 mls @ 166.667 mls/hr IV PDIA YAZAN Stop: 03/07/17 17:59 Last Admin: 02/28/17 17:47 Dose: 750 mg Levofloxacin/Dextrose (Levaquin Rtu 500mg/D5w 100 Ml Premix) 500 mg in 100 mls @ 100 mls/hr IV Q48HS YAZAN Stop: 03/08/17 21:59 Last Admin: 03/01/17 23:27 Dose: 100 ml Insulin Glargine (Lantus Insulin 100 Unit/1 Ml 10 Ml) 10 unit SUBCUT QHS YAZAN Stop: 03/30/17 21:59 Last Admin: 03/01/17 23:27 Dose: 10 unit Insulin Human Lispro (Humalog Insulin 100 Unit/1 Ml 3 Ml Vial) 0 - 12 unit SUBCUT ACHSP PRN PRN Reason: Protocol Stop: 03/30/17 01:37 Promethazine HCl (Phenergan 25 Mg Tablet) 12.5 mg PO Q6HP PRN Stop: 03/30/17 01:48 Sodium Chloride (Saline Flush 2.5 Ml Monoject Prefil Syrin) 2.5 ml IV Q8 YAZAN Stop: 03/30/17 05:59 Last Admin: 03/02/17 06:11 Dose: 2.5 ml - Allergies Allergies/Adverse Reactions: Shellfish * Allergy (Severe, Verified 04/10/15 18:06) Anaphylaxis Penicillins Allergy (Unknown, Verified 04/10/15 18:06) Anaphylaxis prednisone [Prednisone] Allergy (Unknown, Verified 04/10/15 18:06) Sulfa (Sulfonamide Antibiotics) Allergy (Unknown, Verified 04/10/15 18:06) Anaphylaxis Hospital Course Hospital Course: Patient was admitted to the [facility] bed on telemetry. She was seen by her chuck tender Dr Salter in consult. Dialysis was continued on her normal schedule. She has been accepted in transfer to the hospitalist service at [facility]. The patient is agreeable to transfer and understands the risk and benefits of the transfer. She has been stable during her hospitalization here. Physical Exam Vital Signs: Temp Pulse Resp BP Pulse Ox 98.1 F 104 H 21 H 167/80 H 98 03/02/17 07:38 03/02/17 07:38 03/02/17 07:38 03/02/17 07:38 03/02/17 07:38 Intake & Output 03/01/17 03/02/17 03/03/17 06:59 06:59 06:59 Intake Total 987 1180 Output Total 400 300 Balance 587 880 Weight 64.7 kg 64 kg General appearance: PRESENT: no acute distress, thin, well-developed, well- nourished Head exam: PRESENT: atraumatic, normocephalic Eye exam: PRESENT: conjunctiva pink, EOMI, PERRLA. ABSENT: scleral icterus Ear exam: PRESENT: normal external ear exam Mouth exam: PRESENT: moist, tongue midline Neck exam: ABSENT: carotid bruit, JVD, lymphadenopathy, thyromegaly Respiratory exam: PRESENT: crackles, decreased breath sounds, unlabored, other - right lung field with diminished breath sounds Cardiovascular exam: PRESENT: RRR, +S1, +S2 Pulses: PRESENT: normal carotid pulses, normal radial pulses Vascular exam: PRESENT: normal capillary refill GI/Abdominal exam: PRESENT: normal bowel sounds, soft Rectal exam: PRESENT: deferred Extremities exam: PRESENT: full ROM. ABSENT: calf tenderness, clubbing, pedal edema Musculoskeletal exam: PRESENT: ambulatory, full ROM Neurological exam: PRESENT: alert, awake, oriented to person, oriented to place , oriented to time, oriented to situation, CN II-XII grossly intact. ABSENT: motor sensory deficit Psychiatric exam: PRESENT: appropriate affect, normal mood. ABSENT: homicidal ideation, suicidal ideation Skin exam: PRESENT: dry, intact, warm. ABSENT: cyanosis, rash Results Laboratory Results: 03/02/17 06:15 03/02/17 06:15 03/02/17 03/02/17 06:15 06:15 WBC 5.9 RBC 3.45 L Hgb 10.2 L Hct 30.4 L MCV 88 MCH 29.5 MCHC 33.5 RDW 16.6 H Plt Count 353 Sodium 139.9 Potassium 5.3 H Chloride 106 Carbon Dioxide 24 Anion Gap 10 BUN 43 H Creatinine 3.25 H Est GFR ( Amer) 17 L Est GFR (Non-Af Amer) 14 L Glucose 77 Calcium 9.4 02/28/17 01:55 Troponin I < 0.012 Impressions: Chest X-Ray 02/27/17 15:36 IMPRESSION: Large confluent density right upper lobe -collapse versus consolidation. Possible infiltrate versus asymmetrical vascular congestion right lower lung zone. Diffuse markings on left may be secondary to pulmonary edema and vascular congestion. These findings represent a dramatic change since the previous CT of 08/09/2016. Chest CT 02/27/17 17:21 IMPRESSION: INTERVAL DEVELOPMENT OF LOCULATED RIGHT SIDED PLEURAL EFFUSION DESCRIBED ABOVE PRESUMABLY SEQUELA TO PRIOR ESOPHAGEAL PERFORATION. DIFFERENTIAL INCLUDES STERILE PLEURAL EFFUSION OR EMPYEMA. ADDITIONAL FREE-FLOWING PLEURAL EFFUSIONS RIGHT GREATER THAN LEFT LUNG BASES AGAIN COULD BE STERILE OR INFECTED. MULTIFOCAL AIRSPACE DISEASE MOST SEVERELY INVOLVING THE RIGHT LOWER LOBE COMPATIBLE WITH PNEUMONIA. AGAIN NOTED IS DILATED DISTAL ESOPHAGUS. RESIDUAL/RECURRENT PERFORATION CANNOT BE ENTIRELY EXCLUDED HOWEVER NO FREE AIR IDENTIFIED. Esophagus X-Ray 02/28/17 00:00 IMPRESSION: Tight stricture of the mid 3rd esophagus about 3 cm inferior to the alhaji. Remainder of the midesophagus is narrowed with a very irregular lumen, with mediastinal soft tissue around its periphery. Distal 7 to 10 cm of esophagus is normal, normal flow into the fundus of the stomach. Results discussed with Dr. wKong Plan Discharge Plan: Transfer to [facility] Time Spent: Less than 30 Minutes
[2017-03-02] MEDS ORDERED: EPOETIN ALFA INJ 20000 UNIT/1 ML VIAL (RENAL) IV SCH (10:00)
--- NOTE | 2017-03-02 10:18 | PDOC PROGRESS REPORT ---
Subjective Progress Note for:: 03/02/17 Subjective:: Patient seen on dialysis this morning. She is undergoing dialysis without any issues. Breathing is still difficult with minimal exertion. However no chest pains fever chills or riders. [facility] Physical Exam Vital Signs: Temp Pulse Resp BP Pulse Ox 98.1 F 104 H 21 H 167/80 H 98 03/02/17 07:38 03/02/17 07:38 03/02/17 07:38 03/02/17 07:38 03/02/17 07:38 Intake & Output 03/01/17 03/02/17 03/03/17 06:59 06:59 06:59 Intake Total 987 1180 Output Total 400 300 Balance 587 880 Weight 64.7 kg 64 kg General appearance: PRESENT: no acute distress Respiratory exam: PRESENT: clear to auscultation jose. ABSENT: crackles, rhonchi Cardiovascular exam: PRESENT: +S1, +S2, systolic murmur, tachycardia GI/Abdominal exam: PRESENT: normal bowel sounds, soft. ABSENT: organomegaly, tenderness Extremities exam: ABSENT: pedal edema Results Laboratory Results: 03/02/17 06:15 03/02/17 06:15 03/02/17 03/02/17 06:15 06:15 WBC 5.9 RBC 3.45 L Hgb 10.2 L Hct 30.4 L MCV 88 MCH 29.5 MCHC 33.5 RDW 16.6 H Plt Count 353 Sodium 139.9 Potassium 5.3 H Chloride 106 Carbon Dioxide 24 Anion Gap 10 BUN 43 H Creatinine 3.25 H Est GFR ( Amer) 17 L Est GFR (Non-Af Amer) 14 L Glucose 77 Calcium 9.4 02/28/17 01:55 Troponin I < 0.012 Impressions: Chest X-Ray 02/27/17 15:36 IMPRESSION: Large confluent density right upper lobe -collapse versus consolidation. Possible infiltrate versus asymmetrical vascular congestion right lower lung zone. Diffuse markings on left may be secondary to pulmonary edema and vascular congestion. These findings represent a dramatic change since the previous CT of 08/09/2016. Chest CT 02/27/17 17:21 IMPRESSION: INTERVAL DEVELOPMENT OF LOCULATED RIGHT SIDED PLEURAL EFFUSION DESCRIBED ABOVE PRESUMABLY SEQUELA TO PRIOR ESOPHAGEAL PERFORATION. DIFFERENTIAL INCLUDES STERILE PLEURAL EFFUSION OR EMPYEMA. ADDITIONAL FREE-FLOWING PLEURAL EFFUSIONS RIGHT GREATER THAN LEFT LUNG BASES AGAIN COULD BE STERILE OR INFECTED. MULTIFOCAL AIRSPACE DISEASE MOST SEVERELY INVOLVING THE RIGHT LOWER LOBE COMPATIBLE WITH PNEUMONIA. AGAIN NOTED IS DILATED DISTAL ESOPHAGUS. RESIDUAL/RECURRENT PERFORATION CANNOT BE ENTIRELY EXCLUDED HOWEVER NO FREE AIR IDENTIFIED. Esophagus X-Ray 02/28/17 00:00 IMPRESSION: Tight stricture of the mid 3rd esophagus about 3 cm inferior to the alhaji. Remainder of the midesophagus is narrowed with a very irregular lumen, with mediastinal soft tissue around its periphery. Distal 7 to 10 cm of esophagus is normal, normal flow into the fundus of the stomach. Results discussed with Dr. Kwong Assessment & Plan - Diagnosis (1) Loculated pleural effusion Is this a current diagnosis for this admission?: Yes Plan: Has large loculated right pleural effusion of approximately 11 cm. A small left basal.Differential includes empyema versus possible Syn pneumonic effusion. Awaiting thoracentesis, which is now going to happen after she is transferred to tertiary care center. (2) Multifocal pneumonia Is this a current diagnosis for this admission?: Yes Plan: High possibility of aspiration pneumonia given her esophageal history and findings on CT scan. Patient appropriately covered with antibiotics. (3) Esophageal stricture Plan: Await GI evaluation. (4) ESRD (end stage renal disease) on dialysis Is this a current diagnosis for this admission?: Yes Plan: She is being dialyzed today. Dialysis is being supervised to ensure a safe and smooth procedure.Will remove minimal fluid as she is clinically on the dry side.Hemodynamically stable. Labs were reviewed with patient and the treating nurse. Orders were discussed with the treating nurse Ariana. Next dialysis due coming Sunday. (5) HTN (hypertension) Qualifiers: Hypertension type: essential hypertension Qualified Code(s): I10 - Essential (primary) hypertension Is this a current diagnosis for this admission?: Yes
[2017-03-02] MEDS: AMLODIPINE BESYLATE 10 MG TABLET PO SCH (11:34)
[2017-03-02] MEDS: HYDRALAZINE HCL 50 MG TABLET PO SCH (11:35)
[2017-03-02] MEDS: ATORVASTATIN CALCIUM 10 MG TABLET PO SCH (11:35)
[2017-03-02] MEDS: HEPARIN SOD (PORCINE) 5,000 UNIT/ML 1 ML SYRINGE SUBCUT SCH (11:46)
[2017-03-02 12:38] VITALS: BP 180/84
[2017-03-02] MEDS ORDERED: VANCOMYCIN HCL 1,000 MG in DEXTROSE 5%-WATER 250 ML IV SCH (18:00)
== END 2017-03-02 12:00 | disposition short-term general hospital (02) | DRG 684 ==
LOC: ER 14:50 → UNDOADMIN 20:33 → EH 20:33 → 3S 22:45 → EH 02-28 01:38
PROVIDERS: ADMIT Family Medicine; ATTEND Family Medicine
PROC: 5A1D00Z (ICD-10-PCS; principal; 2017-03-02)
DX: N17.9 Acute kidney failure, unspecified (principal); E11.22 Type 2 diabetes mellitus with diabetic chronic kidney disease; I12.9 Hypertensive chronic kidney disease with stage 1 through stage 4 chronic kidney disease, or unspecified chronic kidney disease; N18.4 Chronic kidney disease, stage 4 (severe); G47.33 Obstructive sleep apnea (adult) (pediatric); I25.10 Atherosclerotic heart disease of native coronary artery without angina pectoris; R01.1 Cardiac murmur, unspecified; E78.5 Hyperlipidemia, unspecified; K21.9 Gastro-esophageal reflux disease without esophagitis; M19.90 Unspecified osteoarthritis, unspecified site; D63.1 Anemia in chronic kidney disease; Z60.2 Problems related to living alone; Z88.2 Allergy status to sulfonamides; Z88.8 Allergy status to other drugs, medicaments and biological substances; Z88.0 Allergy status to penicillin; Z91.013 Allergy to seafood; Z90.49 Acquired absence of other specified parts of digestive tract; Z82.49 Family history of ischemic heart disease and other diseases of the circulatory system; Z82.3 Family history of stroke; Z83.3 Family history of diabetes mellitus; Z80.3 Family history of malignant neoplasm of breast; Z99.2 Dependence on renal dialysis
CPT/HCPCS: 36415; 71020; 71250; 74220; 80048; 80053; 80202; 81001; 82550; 82553; 82962; 83735; 83880; 84484; 85025; 85027; 85610; 85730; 87070; 87205; 93005; 93010; 94799; 96365; 96367; 99285; J1580; J1644; J1815; J1956; J3370; J3490; J7060; Q4081; S0028; S0119

== ENCOUNTER 2017-03-31 15:25 | Inpatient (IN) | payer MEDICARE, BC ==
--- NOTE | 2017-03-31 16:03 | ER Document Report ---
ED Respiratory Problem - General Mode of Arrival: Ambulatory Information source: Patient TRAVEL OUTSIDE OF THE [place] IN LAST 30 DAYS: No - HPI Patient complains to provider of: Other - see narrative Similar symptoms previously: Yes Recently seen / treated by doctor: Yes <ALICIA WOMACK - Last Filed: 03/31/17 16:14> <NORIS GREEN - Last Filed: 03/31/17 19:49> - General Chief Complaint: Shortness Of Breath Stated Complaint: DIFFICULTY BREATHING Time Seen by Provider: 03/31/17 15:48 Notes: Patient is a 76 year old female that presents to the emergency department today with complaints of shortness of breath with an associated cough. Patient has a chest tube in which was placed at [facility] secondary to a pleural effusion. Patient was discharged from [facility] 8 days ago. Patient states last night she began coughing more than normal which caused her to vomit. Patient states she noticed blood streaks in the fluid from the chest tube. Patient states she called her home healthcare company and asked to have a nurse come to her house but they never came. (ALICIA WOMACK) - Related Data Allergies/Adverse Reactions: Shellfish * Allergy (Severe, Verified 04/10/15 18:06) Anaphylaxis Penicillins Allergy (Unknown, Verified 04/10/15 18:06) Anaphylaxis prednisone [Prednisone] Allergy (Unknown, Verified 04/10/15 18:06) Sulfa (Sulfonamide Antibiotics) Allergy (Unknown, Verified 04/10/15 18:06) Anaphylaxis Past Medical History - General Information source: Patient, [facility] Records - Social History Smoking Status: Former Smoker Cigarette use (# per day): No Frequency of alcohol use: None Drug Abuse: None Lives with: Family Family History: Reviewed & Not Pertinent, CAD, CVA, DM, Hypertension, Malignancy - Mother had breast cancer Patient has suicidal ideation: No Patient has homicidal ideation: No - Past Medical History Cardiac Medical History: Reports: Hx Congestive Heart Failure - Possible, Hx Coronary Artery Disease, Hx Hypercholesterolemia, Hx Hypertension, Hx Heart Murmur Pulmonary Medical History: Reports: Hx Bronchitis - 30 years ago, Hx Sleep Apnea - Not compliant with CPAP mask Neurological Medical History: Reports: Hx Seizures - Distant history of seizure , felt to be secondary to antibiotic. Endocrine Medical History: Reports: Hx Diabetes Mellitus Type 1 Renal/ Medical History: Reports: Hx End Stage Renal Disease, Hx Peritoneal Dialysis - Tues, Thurs, Sat Malignancy Medical History: Reports: Hx Colorectal Cancer - Status post colon resection in 2012 GI Medical History: Reports: Hx Gastroesophageal Reflux Disease Musculoskeltal Medical History: Reports Hx Arthritis Traumatic Medical History: Reports: Hx Fractures - left neck Past Surgical History: Reports: Hx Abdominal Surgery - colon resection, Hx Orthopedic Surgery - neck 1990s, Other - Partial colectomy 2012; procedures related to esophageal perforation,08/25 - Immunizations Hx Diphtheria, Pertussis, Tetanus Vaccination: No <ALICIA WOMACK - Last Filed: 03/31/17 16:14> Review of Systems - Review of Systems Constitutional: No symptoms reported EENT: No symptoms reported Cardiovascular: No symptoms reported Respiratory: See HPI, Cough, Short of breath Gastrointestinal: See HPI, Vomiting Genitourinary: No symptoms reported Female Genitourinary: No symptoms reported Musculoskeletal: No symptoms reported Skin: No symptoms reported Hematologic/Lymphatic: No symptoms reported Neurological/Psychological: No symptoms reported -: Yes All other systems reviewed and negative <ALICIA WOMACK - Last Filed: 03/31/17 16:14> Physical Exam - Vital signs Interpretation: Normal - General General appearance: Alert, Other - apears at baseline - HEENT Head: Normocephalic, Atraumatic Eyes: Normal Pupils: PERRL - Respiratory Respiratory status: Tachypnea - 32, Other - SPO2 of 93% on 2 L via nasal cannula with a PCO2 of 27. speaking in 3 word sentences Breath sounds: Rales - when inhaling, clears with cough Chest palpation: Normal - Cardiovascular Rhythm: Regular Heart sounds: Normal auscultation Murmur: No - Abdominal Inspection: Normal Distension: No distension Bowel sounds: Normal Tenderness: Nontender Organomegaly: No organomegaly - Back Back: Normal, Nontender - Extremities General upper extremity: Normal inspection, Normal ROM. No: Edema General lower extremity: Normal inspection, Normal ROM. No: Edema - Neurological Neuro grossly intact: Yes Cognition: Normal Orientation: AAOx4 [place] Coma Scale Eye Opening: Spontaneous [place] Coma Scale Verbal: Oriented [place] Coma Scale Motor: Obeys Commands [place] Coma Scale Total: 15 Speech: Normal - Psychological Associated symptoms: Normal affect, Normal mood - Skin Skin Temperature: Warm Skin Moisture: Dry Skin Color: Normal <ALICIA WOMACK - Last Filed: 03/31/17 16:14> <NORIS GREEN - Last Filed: 03/31/17 19:49> - Vital signs Vitals: BP 141/118 H 03/31/17 15:35 - Respiratory Notes: Small caliber pleural drainage tube in right chest (ALICIA WOMACK) Course - Laboratory Result Diagrams: 03/31/17 16:55 03/31/17 18:55 - Diagnostic Test Radiology reviewed: Image reviewed, Reports reviewed - New left lung infiltrate , bibasilar pleural effusions chronic, Pleurx drainage cath in the right lung. - EKG Interpretation by Me EKG shows normal: Sinus rhythm, [place], Intervals. abnormal: QRS Complexes - Borderline R-wave progression in anterior leads, ST-T Waves - Borderline inferior T abnormalities Rate: Normal - 96 Rhythm: NSR, APC's Voltage: Decreased voltage When compared to previous EKG there are: No significant change - Consults Dr. Aguirre Time consulted: 19:35 Consulted provider: will come to ER - [facility] damit <NORIS GREEN - Last Filed: 03/31/17 19:49> - Vital Signs Vital signs: Temp Pulse Resp BP Pulse Ox 98.5 F 96 24 H 154/77 H 98 03/31/17 16:09 03/31/17 15:47 03/31/17 17:43 03/31/17 17:43 03/31/17 17:43 - Laboratory Laboratory results interpreted by me: 03/31/17 03/31/17 16:55 18:55 RBC 3.50 L Hgb 10.2 L Hct 31.9 L RDW 18.4 H Seg Neutrophils % 83.1 H Lymphocytes % 9.6 L Creatinine 2.72 H Est GFR ( Amer) 21 L Est GFR (Non-Af Amer) 17 L Glucose 118 H Direct Bilirubin 0.6 H AST 13 L Creatine Kinase 25 L Albumin 3.3 L Critical Care Note - Critical Care Note Total time excluding time spent on procedures (mins): 40 <NORIS GREEN - Last Filed: 03/31/17 19:49> Discharge <ALICIA WOMACK - Last Filed: 03/31/17 16:14> - Discharge Admitting Provider: Hospitalist Unit Admitted: [facility] <NORIS GREEN - Last Filed: 03/31/17 19:49> - Discharge Clinical Impression: Hypoxemia, Pulmonary infiltrate in left lung on chest x-ray, Pleural effusion, ESRD (end stage renal disease) on dialysis Dyspnea Qualifiers: Dyspnea type: unspecified Qualified Code(s): R06.00 - Dyspnea, unspecified Condition: Stable Disposition: ADMITTED INPATIENT Referrals: LOCALDC,NO [Primary Care Provider] - Follow up as needed Scribe Attestation: 03/31/17 19:48 I personally performed the services described in the documentation, reviewed and edited the documentation which was dictated to the scribe in my presence, and it accurately records my words and actions. (NORIS GREEN) Scribe Documentation - Scribe Written by Jose:: Jose Ibarra, 03/31/2017 1622 acting as scribe for :: Tk <ALICIA WOMACK - Last Filed: 03/31/17 16:14>
--- NOTE | 2017-03-31 16:58 | RADIOLOGY REPORT (SQ) ---
EXAM DESCRIPTION: CHEST SINGLE VIEW COMPLETED DATE/TIME: 03/31/2017 4:44 pm REASON FOR STUDY: bed 2 db COMPARISON: 02/27/2017 EXAM PARAMETERS: NUMBER OF VIEWS: One view. TECHNIQUE: Single frontal radiographic view of the chest acquired. RADIATION DOSE: NA LIMITATIONS: None. FINDINGS: LUNGS AND PLEURA: There is increased density in the lung base E suggesting small bilateral pleural effusions and I cannot exclude some associated atelectasis or infiltrate in the lung bases. Consolidative process is identified in the left mid lung field which was not present on the previous study and is most consistent with pneumonic consolidation. No pneumothorax is seen. MEDIASTINUM AND HILAR STRUCTURES: No masses. Contour normal. HEART AND VASCULAR STRUCTURES: The configuration of the heart and mediastinal structures is unchanged . BONES: Thoracolumbar scoliosis is again identified. HARDWARE: Central line is unchanged in position. Pleural drainage catheter is now identified project ed in the right hemithorax laterally. OTHER: No other significant finding. IMPRESSION: Bibasilar densities as noted above. Consolidative process is identified in the left mid lung field most consistent with pneumonic consolidation. Other findings as noted above TECHNICAL DOCUMENTATION: JOB ID: [id number]
--- NOTE | 2017-03-31 17:06 | EKG REPORT ---
SEVERITY:- ABNORMAL ECG - SINUS RHYTHM ATRIAL PREMATURE COMPLEX LOW VOLTAGE IN FRONTAL LEADS BORDERLINE R WAVE PROGRESSION, ANTERIOR LEADS BORDERLINE T ABNORMALITIES, INFERIOR LEADS : Confirmed by: Carlos Sandoval MD 31-Mar-2017 17:05:25
[2017-03-31 17:16] LABS: ABSOLUTE BASOPHILS # (AUTO) 0.1 10^3/uL (0.0-0.2); ABSOLUTE LYMPHOCYTES (AUTO) 0.9 10^3/uL (0.5-4.7); ABSOLUTE MONOCYTES (AUTO) 0.6 10^3/uL (0.1-1.4); ABSOLUTE NEUT (AUTO) 7.8 10^3/uL (1.7-8.2); BASOPHILS % (AUTO) 0.8 % (0-2); EOSINOPHILS % (AUTO) 0.1 % (0-6); HEMATOCRIT 31.9 % (36.0-47.0); HEMOGLOBIN 10.2 g/dL (12.0-15.5); HGB HCT DIFFERENCE -1.3; LYMPHOCYTES % (AUTO) 9.6 % (13-45); MEAN CORPUSCULAR HEMOGLOBIN 29.2 pg (27.0-33.4); MEAN CORPUSCULAR VOLUME 91 fl (80-97); MONOCYTES % (AUTO) 6.4 % (3-13); RED CELL DISTRIBUTION WIDTH 18.4 % (11.5-14.0); SEGMENTED NEUTROPHILS % (AUTO) 83.1 % (42-78); WHITE BLOOD COUNT 9.4 10^3/uL (4.0-10.5)
[2017-03-31 19:26] LABS: ALANINE AMINOTRANSFERASE 15 U/L (9-52); ALBUMIN 3.3 g/dL (3.5-5.0); ALKALINE PHOSPHATASE 81 U/L (38-126); ANION GAP 10 (5-19); ASPARTATE AMINO TRANSFERASE 13 U/L (14-36); BILIRUBIN,DIRECT 0.6 mg/dL (0.0-0.4); BILIRUBIN,TOTAL 0.9 mg/dL (0.2-1.3); BLOOD UREA NITROGEN 20 mg/dL (7-20); CARBON DIOXIDE 29 mmol/L (22-30); CHLORIDE 101 mmol/L (98-107); CREATINE KINASE 25 U/L (30-135); CREATININE RESULT 2.72 mg/dL (0.52-1.25); GLUCOSE 118 mg/dL (75-110); POTASSIUM 4.3 mmol/L (3.6-5.0); SODIUM 139.5 mmol/L (137-145); TOTAL PROTEIN 6.3 g/dL (6.3-8.2)
[2017-03-31 19:38] LABS: CREATINE KINASE MB 0.67 ng/mL (<4.55); TROPONIN I 0.019 ng/mL
[2017-03-31] MEDS ORDERED: VANCOMYCIN HCL 0 MG in DEXTROSE 5%-WATER 250 ML IV NR ×2 (19:45→22:15)
[2017-03-31] MEDS ORDERED: LEVOFLOXACIN 500 MG/D5W RTU 500 MG/100 ML RTUPB IV ONE (19:46)
[2017-03-31] MEDS ORDERED: VANCOMYCIN HCL INJ 1000 MG VIAL IV PRN (20:04)
[2017-03-31] MEDS ORDERED: VANCOMYCIN HCL INJ 500 MG VIAL IV PRN (20:05)
[2017-03-31] MEDS ORDERED: VANCOMYCIN HCL 1,250 MG in DEXTROSE 5%-WATER 250 ML IV ONE (21:00)
[2017-03-31] MEDS ORDERED: DEXTROSE 50%-WATER 25 GM/50 ML DISP.SYRIN IV PRN ×2 (22:03)
[2017-03-31] MEDS ORDERED: DEXTROSE 40% GEL 15 GM TUBE PO PRN ×2 (22:03)
[2017-03-31] MEDS ORDERED: GLUCAGON,HUMAN RECOMB 1 MG INJ IM PRN (22:03)
[2017-03-31] MEDS ORDERED: ACETAMINOPHEN 325 MG TABLET PO PRN (22:04)
[2017-03-31] MEDS ORDERED: GENTAMICIN SULFATE 0 MG in DEXTROSE 5%-WATER 100 ML IV NR (22:15)
[2017-03-31 22:28] LABS: ADD ON TESTING BLD IN LAB ACKNOWLEDGE
[2017-03-31 22:38] LABS: MAGNESIUM 1.9 mg/dL (1.6-2.3)
--- NOTE | 2017-03-31 22:41 | PDOC H&P ---
History of Present Illness Admission Date/PCP: 03/31/17 20:01 Red Atkins MD Nephrology Dr. Salter Patient complains of: Short of breath History of Present Illness: SOPHY GOMEZ is a 76 year old -[place] female, with a somewhat complicated medical history so far this year, including transfer from our [facility] in August of this year for perforated esophagus. Hospitalized there August 10 - September 06 of this year, with placement of esophageal stent with subsequent exchange along with PEG tube insertion, which has since been removed. subsequently hospitalized at our facility February 28- of this year and transferred back to [facility] with diagnoses included loculated pleural effusion coming along with bilateral pleural effusion. Copies of the history and physical and transfer summary have been reviewed. Was discharged from [facility] 8 days ago. According to the patient , she underwent what sounds to be thoracentesis on the left for pleural effusion , along with placement of a Pleurx catheter on the right which she continues to manage herself, draining this into a small bottle attached to her leg each day. Discharge summary has been requested. Of note, patient has underlying chronic kidney disease, but has been on hemodialysis since her initial stay at [facility]. She normally is on a Sunday schedule. She was actually transferred from the dialysis center to our emergency room today after only half treatment due to shortness of breath. Normally makes only a small amount of urine each day. Starting last night, complaints of increased shortness of breath with associated cough. Cough so severe that she vomited one time. No fever chills or diarrhea. Chest x-ray this evening in the emergency room revealed what appears to be left-sided pneumonia, with bibasilar opacities, possible effusions. Of note, patient has no underlying chronic pulmonary disease other than obstructive sleep apnea, with noncompliance with the facemask due to discomfort. Patient has been discussed with emergency room physician who evaluated the patient. Dictation via voice recognition software. Laboratory results are listed in [facility] and are reviewed. X-ray summary results are listed below, with full report(s) reviewed. . EKG reviewed and compared to prior tracing from February 27 of this year.. Social history/personal habits: Single. Lives alone. Close follow-up by members of her mormonism. No children. Unemployed. No use of alcohol tobacco or illicit drugs. Allergies/adverse reactions are listed in [facility] and are reviewed. Uncertain if she can tolerate cephalosporins. Home medications initially autopopulated into [facility] may not accurately reflect patient's true medications, dosages, and/or frequencies. chief nuclear medicine technologist to reconcile medications. Unfortunately, patient not certain of all medications/dosages/frequencies. REVIEW OF SYSTEMS: Constitutional: No fever or chills. Eyes: Wears glasses. ENT: Intermittent problems with dysphagia since the above-noted esophageal perforation. Denies hearing loss. Pulmonary: See history and present illness. Cardiovascular: See history and present illness. Gastrointestinal: See history and present illness. Skin: No current complaints, including rashes. Hematologic: Denies easy bruising. Neurologic: Prior stroke with mild residual right-sided hemiparesis. Musculoskeletal: Joint pain from arthritis. Psychiatric: Denies anxiety or depression. Endocrine: No current complaints, including polyuria. Genitourinary: No current complaints, including dysuria. PHYSICAL EXAMINATION: 5 feet tall. 59.6 kg. BMI 25.7 kg/m. Blood pressure 148/74. Pulse 95 and regular. 97% saturation on 3 L oxygen per nasal cannula. Temperature 98.5. Well-nourished well-developed though somewhat chronically ill-appearing - [place] female appearing approximately her stated age. Appears slightly fatigued, and to feel a bit under the weather, so to speak. Skin is warm and dry. No grossly obvious evidence of rash in areas of skin examined. No subcutaneous nodules palpated. Right upper anterior chest wall dialysis catheter. ENT: Hearing grossly normal to normal conversation. Tongue midline on protrusion pink and slightly tacky. Eyes: No scleral icterus. Pupils equal and reactive to light at 4 mm. [place] conjunctivae. Neck is supple and nontender to gentle active range of motion and palpation. Midline trachea. No palpable thyroid nodule mass enlargement or tenderness. Lymphatic: No palpable cervical or clavicular nodes. Neck and lymphatic exams limited by patient body habitus. Psychiatric: Reasonable insight into acute and chronic medical issues. Oriented to time location and why here. Lungs: Auscultation reveals clear and equal breath sounds bilaterally, with decreased breath sounds in each base. No use of accessory respiratory muscles. Cardiovascular: Heart regular rate and rhythm, without gallop murmur or rub. No carotid or abdominal aortic bruits. No ankle edema. Patient has a right sided pleural drainage catheter that extends inferiorly to her right lower extremity, with attached flutter valve, with further attachment to a small plastic drainage bottle containing gauze, with a small amount of sero -sanguinous fluid saturated into the gauze. No maricruz blood or free fluid per se. Patient normally manages this herself. Abdomen:soft slightly distended nontender with positive bowel sounds. Unable to adequately evaluate abdomen for masses or organomegaly due to distention. Extremities: No calf tenderness to compression. No grossly obvious visual evidence of calf swelling. Gentle manipulation of lower extremities fails to reveal any obvious evidence of injury or instability to knees hips or ankles. Neurologic: Moves upper extremities grossly normally. Patellar reflexes absent. Dorsiflexion and plantarflexion of feet 5 / 5 and symmetric. Past Medical History Cardiac Medical History: Reports: Congestive Heart Failure - Possible, Coronary Artery Disease, Hyperlipidema, Hypertension, Heart Murmur Denies: Atrial Fibrillation, DVT, Myocardial Infarction, Peripheral Vascular Disease, Pulmonary Embolism Pulmonary Medical History: Reports: Bronchitis - 30 years ago, Sleep Apnea - Not compliant with CPAP mask Denies: Asthma, Chronic Obstructive Pulmonary Disease (COPD), Pneumonia, Respiratory Failure, Tuberculosis Neurological Medical History: Reports: Seizures - Distant history of seizure, felt to be secondary to antibiotic. Endocrine Medical History: Reports: Diabetes Mellitus Type 1 Denies: Diabetes Mellitus Type 2, Hyperthyroidism, Hypothyroidism Renal/ Medical History: Reports: End Stage Renal Disease Malignancy Medical History: Reports: Colorectal Cancer - Status post colon resection in 2012 Denies: Breast Cancer, Cervical Cancer, Leukemia, Lung Cancer, Ovarian Cancer GI Medical History: Reports: Gastroesophageal Reflux Disease Denies: Cirrhosis, Crohn's Disease, Hiatal Hernia, Ulcerative Colitis Musculoskeltal Medical History: Reports: Arthritis Denies: Fibromyalgia Psychiatric Medical History: Denies: Dementia, Depression Hematology: Reports: Anemia Denies: Hemophilia, Sickle Cell Disease Infectious Medical History: Denies: HIV Past Surgical History Past Surgical History: Reports: Orthopedic Surgery - neck 1990s, Other - Partial colectomy 2012; procedures related to esophageal perforation,08/25. Social History Information Source: Patient, Emergency Med Personnel, Outside Facility Records Lives with: Alone Smoking Status: Former Smoker Frequency of Alcohol Use: None Hx Recreational Drug Use: No Drugs: None Hx Prescription Drug Abuse: No - Advance Directive Resuscitation Status: Do Not Resuscitate Surrogate healthcare decision maker:: Sister Saskia Hutchinson [phone] Family History Family History: Reviewed & Not Pertinent, CAD, CVA, DM, Hypertension, Malignancy - Mother had breast cancer Parental Family History Reviewed: Yes - Mother alive at 96. Father of myocardial infarction Children Family History Reviewed: NA Sibling(s) Family History Reviewed.: Yes - Healthy Medication/Allergy Home Medications: Atorvastatin Calcium [Lipitor 10 mg Tablet] 10 mg PO QHS 04/01/17 Insulin Glargine,Hum.rec.anlog [Yadira Gloriaian] 10 units SUBCUT QHS 04/01/17 RX: Amlodipine Besylate [Norvasc 10 mg Tablet] 10 mg PO DAILY 04/01/17 RX: Doxazosin Mesylate [Cardura 2 mg Tablet] 2 mg PO DAILY 04/01/17 RX: Hydralazine HCl [Apresoline 50 mg Tablet] 50 mg PO TID 04/01/17 RX: Ranitidine HCl [Zantac] 300 mg PO BID 04/01/17 Sodium Bicarbonate [Sodium Bicarbonate 650 mg Tablet] 650 mg PO DAILY 04/01/17 Allergies/Adverse Reactions: Shellfish * Allergy (Severe, Verified 04/10/15 18:06) Anaphylaxis Penicillins Allergy (Unknown, Verified 04/10/15 18:06) Anaphylaxis prednisone [Prednisone] Allergy (Unknown, Verified 04/10/15 18:06) Sulfa (Sulfonamide Antibiotics) Allergy (Unknown, Verified 04/10/15 18:06) Anaphylaxis Physical Exam Vital Signs: Temp Pulse Resp BP Pulse Ox 98.5 F 96 23 H 153/77 H 99 03/31/17 16:09 03/31/17 15:47 03/31/17 21:01 03/31/17 21:00 03/31/17 21:01 Results Impressions: Chest X-Ray 03/31/17 15:27 IMPRESSION: Bibasilar densities as noted above. Consolidative process is identified in the left mid lung field most consistent with pneumonic consolidation. Other findings as noted above Assessment & Plan - Diagnosis (2) DNR (do not resuscitate) Is this a current diagnosis for this admission?: Yes Plan: Implications of DO NOT RESUSCITATE/DO NOT INTUBATE status discussed with patient. Discussed in layperson's terms. Implications understood. Patient is the health care decision maker. Patient conversation is lucid and appropriate. Patient desires DO NOT RESUSCITATE/DO NOT INTUBATE status. Will honor patient wishes. (3) Pleural effusion Is this a current diagnosis for this admission?: Yes Plan: Patient comfortable managing her own right Pleurx catheter. Order to staff to continue same. Order also to measure and record daily drainage. (4) Pneumonia involving left lung Qualifiers: Pneumonia type: due to unspecified organism Lung location: unspecified part of lung Qualified Code(s): J18.9 - Pneumonia, unspecified organism Is this a current diagnosis for this admission?: Yes Plan: Patient will be admitted under pneumonia protocol. Incentive spirometry twice a day. As needed DuoNeb's. Pulmonology consult. Antibiotics will consist of intravenous vancomycin and Levaquin, along with aztreonam and gentamicin, due to combination of end-stage renal disease, and recent prior hospital stays. I strongly encouraged patient to notify staff should patient feel that breathing is worsening. I have strongly encouraged patient not to get out of bed without notifying staff , to avoid a fall with injury. Knee high SCDs for DVT prophylaxis, along with subcutaneous heparin. Impression and plans were discussed with patient who concurs. Time spent in evaluation and management of patient: 78 minutes. (5) ESRD (end stage renal disease) on dialysis Is this a current diagnosis for this admission?: Yes Plan: Nephrology consult (6) HLD (hyperlipidemia) Qualifiers: Hyperlipidemia type: unspecified Qualified Code(s): E78.5 - Hyperlipidemia , unspecified Is this a current diagnosis for this admission?: Yes Plan: Resume home medications as appropriate once these have been determined and reviewed. (7) HTN (hypertension) Qualifiers: Hypertension type: essential hypertension Qualified Code(s): I10 - Essential (primary) hypertension Is this a current diagnosis for this admission?: Yes Plan: Resume home medications as appropriate once these have been determined and reviewed. (8) LESLIE (obstructive sleep apnea) Is this a current diagnosis for this admission?: Yes Plan: CPAP (9) Type 1 diabetes mellitus with nephropathy Is this a current diagnosis for this admission?: Yes Plan: Diabetic cardiac dialysis diet. Accu-Cheks with appropriate sliding scale coverage. Resume home medications as appropriate once these have been determined and reviewed. - Time Time Spent: Greater than 70 Minutes Anticipated discharge: Home with Homehealth Within: Other - Inpatient Certification Based on my medical assessment, after consideration of the patient's comorbidities, presenting symptoms, or acuity I expect that the services needed warrant INPATIENT care.: Yes I certify that my determination is in accordance with my understanding of Medicare's requirements for reasonable and necessary INPATIENT services [42 CFR 412.3e].: Yes Medical Necessity: Significant Comorbidiites Make Outpatient Treatment Too Risky , Need Close Monitoring Due to Risk of Patient Decompensation, Need for Nebulizer Therapy and Monitoring of Response, Need for IV Antibiotics, Risk of Complication if Not Cared For in Hospital Post Hospital Care: D/C or Transfer Summary
[2017-03-31] MEDS ORDERED: VANCOMYCIN HCL INJ 1000 MG VIAL ONE (22:45)
[2017-03-31] MEDS ORDERED: VANCOMYCIN HCL INJ 500 MG VIAL ONE (22:45)
[2017-03-31] MEDS ORDERED: GENTAMICIN SULFATE INJ 80 MG/2 ML VIAL IV PRN (22:50)
[2017-03-31] MEDS ORDERED: AZTREONAM 1 GM in DEXTROSE 5%-WATER 50 ML IV SCH (23:00)
[2017-04-01] MEDS ORDERED: GENTAMICIN SULFATE 80 MG in DEXTROSE 5%-WATER 100 ML IV ONE ×2
[2017-04-01 07:15] LABS: ABSOLUTE BASOPHILS # (AUTO) 0.1 10^3/uL (0.0-0.2); ABSOLUTE LYMPHOCYTES (AUTO) 0.9 10^3/uL (0.5-4.7); ABSOLUTE MONOCYTES (AUTO) 0.5 10^3/uL (0.1-1.4); ABSOLUTE NEUT (AUTO) 4.6 10^3/uL (1.7-8.2); BASOPHILS % (AUTO) 1.1 % (0-2); EOSINOPHILS % (AUTO) 0.6 % (0-6); HEMATOCRIT 29.8 % (36.0-47.0); HEMOGLOBIN 9.9 g/dL (12.0-15.5); HGB HCT DIFFERENCE -0.1; MEAN CORPUSCULAR HEMOGLOBIN 30.1 pg (27.0-33.4); MEAN CORPUSCULAR HGB CONC 33.3 g/dL (32.0-36.0); MEAN CORPUSCULAR VOLUME 90 fl (80-97); MONOCYTES % (AUTO) 8.4 % (3-13); SEGMENTED NEUTROPHILS % (AUTO) 74.9 % (42-78); WHITE BLOOD COUNT 6.1 10^3/uL (4.0-10.5)
[2017-04-01 07:39] LABS: ANION GAP 11 (5-19); BLOOD UREA NITROGEN 25 mg/dL (7-20); CALCIUM 9.2 mg/dL (8.4-10.2); CARBON DIOXIDE 26 mmol/L (22-30); CHLORIDE 103 mmol/L (98-107); CREATININE RESULT 3.23 mg/dL (0.52-1.25); GLUCOSE 86 mg/dL (75-110); POTASSIUM 4.9 mmol/L (3.6-5.0); SODIUM 139.7 mmol/L (137-145)
[2017-04-01] MEDS: HEPARIN SOD (PORCINE) 5,000 UNIT/ML 1 ML SYRINGE SUBCUT SCH ×2 (09:15→22:33)
[2017-04-01] MEDS ORDERED: LEVOFLOXACIN 750 MG/D5W RTU 150 ML IV SCH (10:00)
[2017-04-01] MEDS ORDERED: IMIPENEM/CILASTATIN SODIUM 500 MG in NORMAL SALINE 100 ML IV ONE (12:00)
[2017-04-01 12:58] LABS: AMORPHOUS SEDIMENT,URINE TRACE /HPF; APPEARANCE,URINE CLOUDY; BILIRUBIN,URINE NEGATIVE (NEGATIVE); GLUCOSE, URINE NEGATIVE (NEGATIVE); KETONES,URINE NEGATIVE (NEGATIVE); LEUKOCYTE ESTERASE,URINE NEGATIVE (NEGATIVE); NITRITE,URINE NEGATIVE (NEGATIVE); PROTEIN,URINE 100 mg/dL (NEGATIVE); URINE SPECIFIC GRAVITY 1.014; UROBILINOGEN,URINE NEGATIVE mg/dL (<2.0)
--- NOTE | 2017-04-01 14:59 | PDOC PROGRESS REPORT ---
Subjective Progress Note for:: 04/01/17 Subjective:: Patient's shortness of breath is better. She does have a cough but denies it being purulent. No definite fever or chills. Patient had multiple instrumentation with recent thoracentesis in the left, indwelling chest tube on the right. Patient is a dialysis and missed half of the session due to shortness of breath. She was sent to the emergency room for evaluation. Physical Exam Vital Signs: Temp Pulse Resp BP Pulse Ox 99.2 F 94 22 H 135/61 H 96 04/01/17 11:28 04/01/17 11:28 04/01/17 11:28 04/01/17 11:28 04/01/17 11:28 Intake & Output 03/31/17 04/01/17 04/02/17 06:59 06:59 06:59 Intake Total 360 Balance 360 General appearance: PRESENT: mild distress, thin Head exam: PRESENT: normocephalic Eye exam: PRESENT: conjunctiva pale Mouth exam: PRESENT: moist, neck supple Neck exam: ABSENT: JVD Respiratory exam: PRESENT: decreased breath sounds - Lung bases posteriorly. ABSENT: wheezes Cardiovascular exam: ABSENT: gallop GI/Abdominal exam: PRESENT: hypoactive bowel sounds, soft. ABSENT: distended Extremities exam: ABSENT: pedal edema Neurological exam: PRESENT: alert, awake, oriented to situation Skin exam: PRESENT: dry, warm. ABSENT: cyanosis Results Laboratory Results: 04/01/17 06:46 04/01/17 06:46 04/01/17 04/01/17 04/01/17 06:46 06:46 12:20 WBC 6.1 RBC 3.30 L Hgb 9.9 L Hct 29.8 L MCV 90 MCH 30.1 MCHC 33.3 RDW 18.0 H Plt Count 239 Seg Neutrophils % 74.9 Lymphocytes % 15.0 Monocytes % 8.4 Eosinophils % 0.6 Basophils % 1.1 Absolute Neutrophils 4.6 Absolute Lymphocytes 0.9 Absolute Monocytes 0.5 Absolute Eosinophils 0.0 Absolute Basophils 0.1 Sodium 139.7 Potassium 4.9 Chloride 103 Carbon Dioxide 26 Anion Gap 11 BUN 25 H Creatinine 3.23 H Est GFR ( Amer) 17 L Est GFR (Non-Af Amer) 14 L Glucose 86 Calcium 9.2 Urine Color VICKI Urine Appearance CLOUDY Urine pH 5.0 Ur Specific [place] 1.014 Urine Protein 100 H Urine Glucose (UA) NEGATIVE Urine Ketones NEGATIVE Urine Blood NEGATIVE Urine Nitrite NEGATIVE Ur Leukocyte Esterase NEGATIVE Urine WBC (Auto) 3 Urine RBC (Auto) 8 Impressions: Chest X-Ray 03/31/17 15:27 IMPRESSION: Bibasilar densities as noted above. Consolidative process is identified in the left mid lung field most consistent with pneumonic consolidation. Other findings as noted above Assessment & Plan - Diagnosis (1) Pleural effusion Is this a current diagnosis for this admission?: Yes (2) Pneumonia involving left lung Qualifiers: Pneumonia type: due to unspecified organism Lung location: unspecified part of lung Qualified Code(s): J18.9 - Pneumonia, unspecified organism Is this a current diagnosis for this admission?: Yes (3) ESRD (end stage renal disease) on dialysis Is this a current diagnosis for this admission?: Yes (4) Diabetes Qualifiers: Diabetes mellitus type: type 2 Diabetes mellitus complication status: with kidney complications Diabetes mellitus termite control technician insulin use: with skilled nursing use Chronic kidney disease stage: on chronic dialysis Is this a current diagnosis for this admission?: Yes (5) HLD (hyperlipidemia) Qualifiers: Hyperlipidemia type: unspecified Qualified Code(s): E78.5 - Hyperlipidemia , unspecified Is this a current diagnosis for this admission?: Yes (6) HTN (hypertension) Qualifiers: Hypertension type: essential hypertension Qualified Code(s): I10 - Essential (primary) hypertension Is this a current diagnosis for this admission?: Yes (7) LESLIE (obstructive sleep apnea) Is this a current diagnosis for this admission?: Yes - Time Time Spent with patient: 25-34 minutes - Plan Summary Plan Summary: We will change antibiotic regimen to Primaxin and vancomycin. I will try the patient on 120 mg of Lasix IV with 5 mg of Zaroxolyn and see if her breathing will improve. Awaiting nephrology evaluation, patient's reported he is on Sunday and Sunday dialysis but scheduled for Sunday this coming week. Dr. Atkins will assume care of the patient in the morning.
[2017-04-01] MEDS ORDERED: METOLAZONE 5 MG TABLET PO ONE (16:00)
[2017-04-01] MEDS ORDERED: FUROSEMIDE INJ/PF 100 MG/10 ML SDV IV ONE (16:00)
[2017-04-01] MEDS: INSULIN GLARGINE,HUM.REC.ANLOG 1,000 UNIT/10 ML UNIT SUBCUT SCH (21:46)
[2017-04-01] MEDS ORDERED: INSULIN GLARGINE,HUM.REC.ANLOG 1,000 UNIT/10 ML UNIT SUBCUT SCH (22:00)
[2017-04-01] MEDS ORDERED: IMIPENEM/CILASTATIN SODIUM 500 MG in NORMAL SALINE 100 ML IV SCH (22:00)
[2017-04-02 04:49] LABS: ABSOLUTE BASOPHILS # (AUTO) 0.1 10^3/uL (0.0-0.2); ABSOLUTE LYMPHOCYTES (AUTO) 0.8 10^3/uL (0.5-4.7); ABSOLUTE MONOCYTES (AUTO) 0.6 10^3/uL (0.1-1.4); ABSOLUTE NEUT (AUTO) 4.5 10^3/uL (1.7-8.2); BASOPHILS % (AUTO) 1.2 % (0-2); EOSINOPHILS % (AUTO) 0.4 % (0-6); HEMATOCRIT 28.5 % (36.0-47.0); HEMOGLOBIN 9.4 g/dL (12.0-15.5); HGB HCT DIFFERENCE -0.3; LYMPHOCYTES % (AUTO) 13.9 % (13-45); MEAN CORPUSCULAR HEMOGLOBIN 29.8 pg (27.0-33.4); MEAN CORPUSCULAR VOLUME 90 fl (80-97); MONOCYTES % (AUTO) 9.9 % (3-13); RED BLOOD COUNT 3.15 10^6/uL (3.72-5.28); SEGMENTED NEUTROPHILS % (AUTO) 74.6 % (42-78); WHITE BLOOD COUNT 6.1 10^3/uL (4.0-10.5)
[2017-04-02 05:02] LABS: ANION GAP 12 (5-19); BLOOD UREA NITROGEN 35 mg/dL (7-20); CALCIUM 9.5 mg/dL (8.4-10.2); CARBON DIOXIDE 25 mmol/L (22-30); CHLORIDE 101 mmol/L (98-107); CREATININE RESULT 4.01 mg/dL (0.52-1.25); GLUCOSE 136 mg/dL (75-110); POTASSIUM 4.8 mmol/L (3.6-5.0); SODIUM 138.3 mmol/L (137-145)
[2017-04-02] MEDS ORDERED: SODIUM BICARBONATE 650 MG TABLET PO SCH (10:00)
[2017-04-02] MEDS ORDERED: EPOETIN ALFA 5,000 UNIT in SYRINGE, DISPOSABLE, 1 EACH IV ONE (10:15)
--- NOTE | 2017-04-02 10:28 | PDOC CONSULTATION ---
Consultation Consult Date: 04/02/17 Consult reason:: ESRD for dialysis History of Present Illness Admission Date/PCP: 03/31/17 22:02 History of Present Illness: SOPHY GOMEZ is a 76 year old -[place] female, Who has ESRD and is on hemodialysis with a complicated medical history so far this year, including transfer from our facility [facility] in August of this year for perforated esophagus. Hospitalized there August 10 - September 06 of this year, with placement of esophageal stent with subsequent exchange along with PEG tube insertion, which is since been removed. She was subsequently hospitalized at our facility February 28 of this year and transferred back to [facility] with diagnoses included loculated pleural effusion coming along with bilateral pleural effusion. Was discharged from [facility] 8 days ago. According to the patient, she underwent what sounds to be thoracentesis on the left for pleural effusion, along with placement of a Pleurx catheter on the right which she continues to manage herself, draining this into a small bottle attached to her leg each day. She normally is on a Sunday schedule. She was actually transferred from the dialysis center to our emergency room on Sunday after only half treatment due to shortness of breath. Normally makes only a small amount of urine each day. On Sunday, she began to notice some coughing spells and, complaints of increased shortness of breath . She had no chest pain other than what was associated with a severe coughing spells. She denied any history of fever, chills, rigors and hemoptysis. Cough so severe that she vomited one time. No diarrhea. Chest x-ray this evening in the emergency room revealed what appears to be left-sided pneumonia, with bibasilar opacities, possible effusions. Of note, patient has no underlying chronic pulmonary disease other than obstructive sleep apnea, with noncompliance with the facemask due to discomfort. Patient is currently being seen on hemodialysis. She is too short of breath when she talks but she says is a whole lot better than when she came in on Sunday.Dialysis is being supervised. She has no issues at the moment. Vital signs are stable. Past Medical History Cardiac Medical History: Reports: Coronary Artery Disease, Heart Murmur, Hyperlipidemia, Hypertension-primary Denies: Atrial Fibrillation, DVT, Myocardial Infarction, Peripheral Vascular Disease, Pulmonary Embolism Pulmonary Medical History: Reports: Bronchitis - 30 years ago, Sleep Apnea - Not compliant with CPAP mask Denies: Asthma, Chronic Obstructive Pulmonary Disease (COPD), Pneumonia, Respiratory Failure, Tuberculosis Neurological Medical History: Reports: Seizures - Distant history of seizure, felt to be secondary to antibiotic. Endocrine Medical History: Reports: Diabetes Mellitus Type 2 Denies: Hyperthyroidism, Hypothyroidism Renal/ Medical History: Reports: End Stage Renal Disease, Secondary Hyperparathyroidism Malignancy Medical History: Reports: Colorectal Cancer - Status post colon resection in 2012 Denies: Breast Cancer, Cervical Cancer, Leukemia, Lung Cancer, Ovarian Cancer GI Medical History: Reports: Gastroesophageal Reflux Disease Denies: Cirrhosis, Crohn's Disease, Hiatal Hernia, Ulcerative Colitis Musculoskeltal Medical History: Reports: Arthritis Denies: Fibromyalgia, Rheumatoid Arthritis, Systemic Lupus Erythematosus Psychiatric Medical History: Denies: Dementia, Depression Infectious Medical History: Denies: HIV Hematology Medical History: Reports Anemia of Chronic Kidney Disease Past Surgical History Past Surgical History: Reports: Orthopedic Surgery - neck 1990s, Other - Partial colectomy 2012; procedures related to esophageal perforation,08/25. Denies: Appendectomy, Section, Cholecystectomy, Colostomy, Coronary Artery Bypass Graft, Gastric Bypass Surgery, Herniorrhaphy, Hysterectomy, Mastectomy, Pacemaker, Tonsillectomy, Tubal Ligation Social History Lives with: Alone Smoking Status: Former Smoker Frequency of Alcohol Use: None Hx Recreational Drug Use: No Drugs: None Hx Prescription Drug Abuse: No - Advance Directive Resuscitation Status: Do Not Resuscitate Family History Parental Family History Reviewed: Yes - Negative for ESRD Children Family History Reviewed: Yes Sibling(s) Family History Reviewed.: No Medication/Allergy Home Medications: Amlodipine Besylate [Norvasc 10 mg Tablet] 10 mg PO DAILY 04/01/17 Atorvastatin Calcium [Lipitor 10 mg Tablet] 10 mg PO QHS 04/01/17 Doxazosin Mesylate [Cardura 2 mg Tablet] 2 mg PO DAILY 04/01/17 Hydralazine HCl [Apresoline 50 mg Tablet] 50 mg PO TID 04/01/17 Insulin Glargine,Hum.rec.anlog [Yadira Flor] 10 units SUBCUT QHS 04/01/17 Ranitidine HCl [Zantac] 300 mg PO BID 04/01/17 Sodium Bicarbonate [Sodium Bicarbonate 650 mg Tablet] 650 mg PO DAILY 04/01/17 Allergies/Adverse Reactions: Shellfish * Allergy (Severe, Verified 04/10/15 18:06) Anaphylaxis Penicillins Allergy (Unknown, Verified 04/10/15 18:06) Anaphylaxis prednisone [Prednisone] Allergy (Unknown, Verified 04/10/15 18:06) Sulfa (Sulfonamide Antibiotics) Allergy (Unknown, Verified 04/10/15 18:06) Anaphylaxis Review of Systems Constitutional: PRESENT: fatigue, weakness. ABSENT: anorexia, chills, fever(s) , headache(s), night sweats Nose, Mouth, and Throat: ABSENT: mouth pain, sore throat Cardiovascular: PRESENT: dyspnea on exertion. ABSENT: chest pain, edema, orthropnea, palpitations Respiratory: PRESENT: dyspnea. ABSENT: hemoptysis Gastrointestinal: ABSENT: abdominal pain, diarrhea, dysphagia, heartburn, hematemesis Genitourinary: ABSENT: dysuria, hematuria Integumentary: ABSENT: pruritus, rash Neurological: ABSENT: abnormal movements, confusion, convulsions, focal weakness , frequent falls, numbness Endocrine: ABSENT: heat intolerance, polydipsia Hematologic/Lymphatic: ABSENT: easy bleeding, easy bruising, lymphadenopathy Physical Exam Vital Signs: Temp Pulse Resp BP Pulse Ox 98.5 F 96 18 153/88 H 100 04/02/17 07:46 04/02/17 07:46 04/02/17 07:46 04/02/17 07:46 04/02/17 10:03 Intake & Output 04/01/17 04/02/17 04/03/17 06:59 06:59 06:59 Intake Total 360 567 Output Total 540 Balance 360 27 Weight 57.8 kg General appearance: PRESENT: mild distress Eye exam: PRESENT: conjunctiva pink, EOMI, nystagmus, PERRLA Ear exam: PRESENT: normal external ear exam Mouth exam: ABSENT: moist Neck exam: ABSENT: meningismus, tenderness, thyromegaly, tracheal deviation Respiratory exam: PRESENT: crackles - Left infra axillary region. ABSENT: chest wall tenderness, clear to auscultation jose, rhonchi, stridor Cardiovascular exam: PRESENT: +S1, +S2, systolic murmur GI/Abdominal exam: PRESENT: normal bowel sounds, soft. ABSENT: distended, tenderness Extremities exam: ABSENT: pedal edema Neurological exam: PRESENT: alert, awake, oriented to person, oriented to place , oriented to time Skin exam: PRESENT: dry. ABSENT: cyanosis, erythema, mottled Results Laboratory Results: 04/02/17 04:09 04/02/17 04:09 04/01/17 04/02/17 04/02/17 12:20 04:09 04:09 WBC 6.1 RBC 3.15 L Hgb 9.4 L Hct 28.5 L MCV 90 MCH 29.8 MCHC 33.0 RDW 18.0 H Plt Count 218 Seg Neutrophils % 74.6 Lymphocytes % 13.9 Monocytes % 9.9 Eosinophils % 0.4 Basophils % 1.2 Absolute Neutrophils 4.5 Absolute Lymphocytes 0.8 Absolute Monocytes 0.6 Absolute Eosinophils 0.0 Absolute Basophils 0.1 Sodium 138.3 Potassium 4.8 Chloride 101 Carbon Dioxide 25 Anion Gap 12 BUN 35 H Creatinine 4.01 H Est GFR ( Amer) 13 L Est GFR (Non-Af Amer) 11 L Glucose 136 H Calcium 9.5 Urine Color VICKI Urine Appearance CLOUDY Urine pH 5.0 Ur Specific [place] 1.014 Urine Protein 100 H Urine Glucose (UA) NEGATIVE Urine Ketones NEGATIVE Urine Blood NEGATIVE Urine Nitrite NEGATIVE Ur Leukocyte Esterase NEGATIVE Urine WBC (Auto) 3 Urine RBC (Auto) 8 Impressions: Chest X-Ray 03/31/17 15:27 IMPRESSION: Bibasilar densities as noted above. Consolidative process is identified in the left mid lung field most consistent with pneumonic consolidation. Other findings as noted above Assessment & Plan - Diagnosis (1) Anemia in chronic renal disease Plan: Adjust erythropoietin. Dose ordered. (2) ESRD (end stage renal disease) on dialysis Is this a current diagnosis for this admission?: Yes Plan: Patient seen on hemodialysis. She is undergoing dialysis without any issues. Is being supervised to ensure safe and smooth procedure. Vital signs are stable. Plan to remove no fluid as she is clinically on the dry side. Orders were discussed with the treating nurse. (3) Pneumonia involving left lung Qualifiers: Pneumonia type: due to unspecified organism Lung location: unspecified part of lung Qualified Code(s): J18.9 - Pneumonia, unspecified organism Is this a current diagnosis for this admission?: Yes Plan: Patient begun on antibiotics. Dose appropriate. Follow on cultures. Follow on notes from [facility] on discharge. (4) Diabetes Qualifiers: Diabetes mellitus type: type 2 Diabetes mellitus complication status: with kidney complications Diabetes mellitus exterminator helper termite insulin use: with longterm use Chronic kidney disease stage: on chronic dialysis Is this a current diagnosis for this admission?: Yes (5) Hypertension associated with diabetes Plan: Relatively well controlled. Monitor. (7) LESLIE (obstructive sleep apnea) Is this a current diagnosis for this admission?: Yes Plan: Unable to use the CPAP because of intolerance with CPAP mask.
[2017-04-02] MEDS ORDERED: EPOETIN ALFA INJ 20000 UNIT/1 ML VIAL (RENAL) IV ONE (10:30)
[2017-04-02] MEDS: IPRATROPIUM/ALBUTEROL 0.5-2.5 MG/3 ML AMPUL NEB PRN (10:38)
[2017-04-02] MEDS: HEPARIN SOD (PORCINE) 5,000 UNIT/ML 1 ML SYRINGE SUBCUT SCH ×2 (13:08→22:36)
--- NOTE | 2017-04-02 17:17 | PDOC PROGRESS REPORT ---
Subjective Progress Note for:: 04/02/17 Subjective:: The patient is seen during the hemodialysis treatment. She states to feel slightly better. She denies any cough. Physical Exam Vital Signs: Temp Pulse Resp BP Pulse Ox 98.5 F 101 H 20 127/65 H 96 04/02/17 15:30 04/02/17 15:30 04/02/17 15:30 04/02/17 15:30 04/02/17 15:30 Intake & Output 04/01/17 04/02/17 04/03/17 06:59 06:59 06:59 Intake Total 360 567 Output Total 540 0 Balance 360 27 0 Weight 57.8 kg General appearance: PRESENT: mild distress Head exam: PRESENT: atraumatic Eye exam: PRESENT: conjunctival injection Neck exam: PRESENT: full ROM Respiratory exam: PRESENT: crackles, rhonchi Cardiovascular exam: PRESENT: +S1, +S2 GI/Abdominal exam: PRESENT: normal bowel sounds, soft Extremities exam: PRESENT: full ROM Musculoskeletal exam: PRESENT: ambulatory, full ROM Neurological exam: PRESENT: alert, awake Results Laboratory Results: 04/02/17 04:09 04/02/17 04:09 04/02/17 04/02/17 04:09 04:09 WBC 6.1 RBC 3.15 L Hgb 9.4 L Hct 28.5 L MCV 90 MCH 29.8 MCHC 33.0 RDW 18.0 H Plt Count 218 Seg Neutrophils % 74.6 Lymphocytes % 13.9 Monocytes % 9.9 Eosinophils % 0.4 Basophils % 1.2 Absolute Neutrophils 4.5 Absolute Lymphocytes 0.8 Absolute Monocytes 0.6 Absolute Eosinophils 0.0 Absolute Basophils 0.1 Sodium 138.3 Potassium 4.8 Chloride 101 Carbon Dioxide 25 Anion Gap 12 BUN 35 H Creatinine 4.01 H Est GFR ( Amer) 13 L Est GFR (Non-Af Amer) 11 L Glucose 136 H Calcium 9.5 Impressions: Chest X-Ray 03/31/17 15:27 IMPRESSION: Bibasilar densities as noted above. Consolidative process is identified in the left mid lung field most consistent with pneumonic consolidation. Other findings as noted above Assessment & Plan - Diagnosis (1) Pneumonia involving left lung Qualifiers: Pneumonia type: due to unspecified organism Lung location: unspecified part of lung Qualified Code(s): J18.9 - Pneumonia, unspecified organism Is this a current diagnosis for this admission?: Yes Plan: Continue current treatment with antibiotics and hemodialysis (2) LESLIE (obstructive sleep apnea) Is this a current diagnosis for this admission?: Yes Plan: Attempt to convince patient to use CPAP. She is very noncompliant with her CPAP (3) Pleural effusion Is this a current diagnosis for this admission?: Yes Plan: She presently has a catheter status post chest tube placement in [place] (4) ESRD (end stage renal disease) on dialysis Is this a current diagnosis for this admission?: Yes Plan: Continue hemodialysis as per nephrology recommendations (5) Anemia in chronic renal disease Is this a current diagnosis for this admission?: Yes Plan: Continue hemodialysis (6) Diabetes Qualifiers: Diabetes mellitus type: type 2 Diabetes mellitus complication status: with kidney complications Diabetes mellitus dispersion mixer insulin use: with dispersion mixer use Chronic kidney disease stage: on chronic dialysis Is this a current diagnosis for this admission?: Yes Plan: Continue current treatment
[2017-04-02] MEDS: INSULIN GLARGINE,HUM.REC.ANLOG 1,000 UNIT/10 ML UNIT SUBCUT SCH (22:32)
[2017-04-02] MEDS: IMIPENEM/CILASTATIN SODIUM 500 MG in NORMAL SALINE 100 ML IV SCH (22:36)
--- NOTE | 2017-04-03 08:56 | PDOC PROGRESS REPORT ---
Subjective Progress Note for:: 04/03/17 Physical Exam Vital Signs: Temp Pulse Resp BP Pulse Ox 97.6 F 99 22 H 134/64 H 96 04/03/17 08:15 04/03/17 08:15 04/03/17 08:15 04/03/17 08:15 04/03/17 08:15 Intake & Output 04/02/17 04/03/17 04/04/17 06:59 06:59 06:59 Intake Total 567 665 Output Total 540 45 Balance 27 620 Weight 57.8 kg General appearance: PRESENT: mild distress Head exam: PRESENT: atraumatic Eye exam: PRESENT: conjunctival injection Respiratory exam: PRESENT: crackles, rhonchi Cardiovascular exam: PRESENT: +S1, +S2 Pulses: PRESENT: +1 pedal pulses bilateral GI/Abdominal exam: PRESENT: normal bowel sounds, soft Extremities exam: PRESENT: full ROM Musculoskeletal exam: PRESENT: ambulatory Neurological exam: PRESENT: alert, awake Results Laboratory Results: 04/02/17 04:09 04/02/17 04:09 Impressions: Chest X-Ray 03/31/17 15:27 IMPRESSION: Bibasilar densities as noted above. Consolidative process is identified in the left mid lung field most consistent with pneumonic consolidation. Other findings as noted above Assessment & Plan - Diagnosis (1) Pneumonia involving left lung Qualifiers: Pneumonia type: due to unspecified organism Lung location: unspecified part of lung Qualified Code(s): J18.9 - Pneumonia, unspecified organism Is this a current diagnosis for this admission?: Yes Plan: Continue current treatment with antibiotics and hemodialysis (2) LESLIE (obstructive sleep apnea) Is this a current diagnosis for this admission?: Yes (3) Pleural effusion Is this a current diagnosis for this admission?: Yes Plan: She presently has a catheter status post chest tube placement in [place] (4) ESRD (end stage renal disease) on dialysis Is this a current diagnosis for this admission?: Yes Plan: Continue hemodialysis as per nephrology recommendations (5) Anemia in chronic renal disease Is this a current diagnosis for this admission?: Yes Plan: Continue hemodialysis (6) Diabetes Qualifiers: Diabetes mellitus type: type 2 Diabetes mellitus complication status: with kidney complications Diabetes mellitus care home insulin use: with bed bug exterminator use Chronic kidney disease stage: on chronic dialysis Is this a current diagnosis for this admission?: Yes Plan: Continue current treatment
--- NOTE | 2017-04-03 09:47 | RADIOLOGY REPORT (SQ) ---
EXAM DESCRIPTION: CHEST PA/LAT COMPLETED DATE/TIME: 04/03/2017 9:23 am REASON FOR STUDY: cough COMPARISON: 03/31/2017. EXAM PARAMETERS: NUMBER OF VIEWS: two views TECHNIQUE: Digital Frontal and Lateral radiographic views of the chest acquired. RADIATION DOSE: NA LIMITATIONS: none FINDINGS: LUNGS AND PLEURA: Volume loss on the right with right basilar density and subpulmonic effu belle unchanged. Stable right chest tube. No pneumothorax. Infiltrate in the left mid lung and patc hy infiltrate in the left base. MEDIASTINUM AND HILAR STRUCTURES: No masses or contour abnormalities. HEART AND VASCULAR STRUCTURES: Cardiomegaly. BONES: No acute findings. HARDWARE: Right chest tube. Multi lumen catheter. Hardware in the cervical spine. OTHER: No other significant finding. IMPRESSION: NO CHANGE IN APPEARANCE OF THE CHEST. TECHNICAL DOCUMENTATION: JOB ID: [id number] [employer]- All Rights Reserved
[2017-04-03] MEDS ORDERED: (PENDING PHARMACY ID) (Ranitidine Hcl [Zantac] 300 MG) PO SCH (10:00)
[2017-04-03] MEDS ORDERED: HYDRALAZINE HCL 50 MG TABLET PO SCH (10:00)
[2017-04-03] MEDS: AMLODIPINE BESYLATE 10 MG TABLET PO SCH (10:14)
[2017-04-03] MEDS: HEPARIN SOD (PORCINE) 5,000 UNIT/ML 1 ML SYRINGE SUBCUT SCH ×2 (10:14→22:12)
[2017-04-03] MEDS: FAMOTIDINE 20 MG TABLET PO SCH ×2 (10:15→22:13)
[2017-04-03] MEDS: DOXAZOSIN MESYLATE 2 MG TABLET PO SCH (10:15)
[2017-04-03] MEDS: IMIPENEM/CILASTATIN SODIUM 500 MG in NORMAL SALINE 100 ML IV SCH (10:16)
[2017-04-03] MEDS: BENZONATATE 100 MG CAPSULE PO SCH (14:26)
[2017-04-03] MEDS: HYDRALAZINE HCL 50 MG TABLET PO SCH ×2 (14:27→22:13)
--- NOTE | 2017-04-03 17:16 | PDOC CONSULTATION ---
Consultation Consult Date: 04/03/17 Attending physician:: ENZO ERVIN Consult reason:: abnormal cxr History of Present Illness Admission Date/PCP: 03/31/17 22:02 History of Present Illness: 76-year-old female with extensive medical problems seem to blossom in July 2016 when she was found to have a perforated esophagus was apparently with subsequent bleed due to an abscess however this resulted in multiorgan failure and she was in the intensive care unit for quite a while almost February recuperated but she had pre-existing renal disease and subsequently will let her to dialysis her stay was complicated by multiple pleural effusions to the point that she needed a Pleurodex catheter which she still maintains at this time she has had a 2 month hospitalization in July and an additional hospitalization in January was subsequent new pneumonia patient is stated above and has chronic renal failure is on hemodialysis Sunday and Sunday she is hypertensive and diabetic and she status post colon cancer.She admits to exposure to passive smoke as a child as well as an adolescent. She has self smoked a pack a day for 25 years but has not smoked in the last 35 years. She has no pets no recent travelShe denies angina-like chest pain sleeps on 2 pillows admits to occasional PND occasional nocturnal cough and frequent edema she admits to snoring and restless sleep nocturia 2 but denies unrestful sleep or excessive daytime somnolence Past Medical History Cardiac Medical History: Reports: Congestive Heart Failure - Possible, Coronary Artery Disease, Hyperlipidema, Hypertension, Heart Murmur Denies: Atrial Fibrillation, DVT, Myocardial Infarction, Peripheral Vascular Disease, Pulmonary Embolism Pulmonary Medical History: Reports: Bronchitis - 30 years ago, Sleep Apnea - Not compliant with CPAP mask Denies: Asthma, Chronic Obstructive Pulmonary Disease (COPD), Pneumonia, Respiratory Failure, Tuberculosis Neurological Medical History: Reports: Seizures - Distant history of seizure, felt to be secondary to antibiotic. Endocrine Medical History: Reports: Diabetes Mellitus Type 1, Diabetes Mellitus Type 2 Denies: Hyperthyroidism, Hypothyroidism Renal/ Medical History: Reports: End Stage Renal Disease Malignancy Medical History: Reports: Colorectal Cancer - Status post colon resection in 2012 Denies: Breast Cancer, Cervical Cancer, Leukemia, Lung Cancer, Ovarian Cancer GI Medical History: Reports: Gastroesophageal Reflux Disease Denies: Cirrhosis, Crohn's Disease, Hiatal Hernia, Ulcerative Colitis Musculoskeltal Medical History: Reports: Arthritis Denies: Fibromyalgia Psychiatric Medical History: Denies: Dementia, Depression Hematology: Reports: Anemia Denies: Hemophilia, Sickle Cell Disease Infectious Medical History: Denies: HIV Past Surgical History Past Surgical History: Reports: Orthopedic Surgery - neck 1990s, Other - Partial colectomy 2012; procedures related to esophageal perforation,08/25. Denies: Amputation, Appendectomy, Section, Cholecystectomy, Colostomy, Coronary Artery Bypass Graft, Gastric Bypass Surgery, Herniorrhaphy, Hysterectomy, Mastectomy, Pacemaker, Tonsillectomy, Tubal Ligation Social History Information Source: Patient, [facility] Records Have you worked as/with:: [employer] Lives with: Alone Smoking Status: Former Smoker Cigarettes Packs Per Day: 1 Number of Years Smokin Passive smoke exposure as: Both Frequency of Alcohol Use: None Hx Recreational Drug Use: No Drugs: None Hx Prescription Drug Abuse: No Do you have pets?: No Have you had any respiratory illnesses as a child?: No Have you been exposed to any sick contacts recently?: No Have you had any recent respiratory illnesses?: No Have you travelled outside of [place] in the past 12 months?: No - Advance Directive Resuscitation Status: Do Not Resuscitate Family History Family History: Reviewed & Not Pertinent, CAD, CVA, DM, Hypertension, Malignancy - Mother had breast cancer Parental Family History Reviewed: Yes Children Family History Reviewed: Yes Sibling(s) Family History Reviewed.: Yes Medication/Allergy Home Medications: Amlodipine Besylate [Norvasc 10 mg Tablet] 10 mg PO DAILY 04/01/17 Atorvastatin Calcium [Lipitor 10 mg Tablet] 10 mg PO QHS 04/01/17 Doxazosin Mesylate [Cardura 2 mg Tablet] 2 mg PO DAILY 04/01/17 Hydralazine HCl [Apresoline 50 mg Tablet] 50 mg PO TID 04/01/17 Insulin Glargine,Hum.rec.anlog [Toujeo Solostar] 10 units SUBCUT QHS 04/01/17 Ranitidine HCl [Zantac] 300 mg PO BID 04/01/17 Sodium Bicarbonate [Sodium Bicarbonate 650 mg Tablet] 650 mg PO DAILY 04/01/17 Allergies/Adverse Reactions: Shellfish * Allergy (Severe, Verified 04/10/15 18:06) Anaphylaxis Penicillins Allergy (Unknown, Verified 04/10/15 18:06) Anaphylaxis prednisone [Prednisone] Allergy (Unknown, Verified 04/10/15 18:06) Sulfa (Sulfonamide Antibiotics) Allergy (Unknown, Verified 04/10/15 18:06) Anaphylaxis Review of Systems All systems: reviewed and no additional remarkable complaints except as stated Physical Exam Vital Signs: Temp Pulse Resp BP Pulse Ox 97.6 F 99 22 H 134/64 H 96 04/03/17 08:15 04/03/17 08:15 04/03/17 08:15 04/03/17 08:15 04/03/17 08:15 Intake & Output 04/02/17 04/03/17 04/04/17 06:59 06:59 06:59 Intake Total 567 665 Output Total 540 45 Balance 27 620 Weight 57.8 kg General appearance: PRESENT: no acute distress, cooperative, disheveled, thin, well-developed Head exam: PRESENT: normocephalic Eye exam: PRESENT: conjunctiva pale, EOMI Mouth exam: PRESENT: dry mucosa, neck supple, tongue midline Neck exam: ABSENT: carotid bruit, JVD, lymphadenopathy, thyromegaly Respiratory exam: PRESENT: decreased breath sounds, prolonged expiratory phas, rhonchi, symmetrical, unlabored, other - Pleurodex catheter of left lateral hemithorax indwelling Port-A-Cath subcutaneous right anterior chest wall. ABSENT: crackles, rales, retraction, stridor, tachypnea, wheezes Cardiovascular exam: PRESENT: RRR, +S1, +S2 Pulses: PRESENT: normal radial pulses GI/Abdominal exam: PRESENT: normal bowel sounds, soft. ABSENT: distended, guarding, mass, organolmegaly, rebound, tenderness Rectal exam: PRESENT: deferred Gentrourinary exam: PRESENT: indwelling catheter Musculoskeletal exam: PRESENT: normal inspection Neurological exam: PRESENT: alert, awake Psychiatric exam: PRESENT: normal mood Skin exam: PRESENT: dry, warm Results Laboratory Results: 04/02/17 04:09 04/02/17 04:09 04/01/17 09:25 Sputum Gram Stain - Final 04/01/17 09:25 Sputum Sputum Culture - Final NORMAL DARRIUS Impressions: Chest X-Ray 04/03/17 00:00 IMPRESSION: NO CHANGE IN APPEARANCE OF THE CHEST. Assessment & Plan - Diagnosis (1) DNR (do not resuscitate) Is this a current diagnosis for this admission?: Yes (2) ESRD (end stage renal disease) on dialysis Is this a current diagnosis for this admission?: Yes Plan: Dialysis Sunday (3) Pleural effusion Is this a current diagnosis for this admission?: Yes Plan: Chronic and extensive Pleurodex catheter in the right hemithorax (4) CKD (chronic kidney disease) stage 4, GFR 15-29 ml/min Is this a current diagnosis for this admission?: Yes (5) Esophageal perforation Is this a current diagnosis for this admission?: No (6) Esophageal stricture Is this a current diagnosis for this admission?: Yes (7) Hiatal hernia Is this a current diagnosis for this admission?: Yes (8) Loculated pleural effusion Is this a current diagnosis for this admission?: Yes (9) Pleural effusion on right Is this a current diagnosis for this admission?: No (10) Renal tubular acidosis, type IV Is this a current diagnosis for this admission?: Yes (11) LESLIE (obstructive sleep apnea) Is this a current diagnosis for this admission?: Yes
[2017-04-03] MEDS ORDERED: INSULIN GLARGINE HUM REC ANLOG 10 UNIT SUBCUT SCH (22:00)
[2017-04-03] MEDS: ATORVASTATIN CALCIUM 10 MG TABLET PO SCH (22:14)
[2017-04-03] MEDS: IPRATROPIUM/ALBUTEROL 0.5-2.5 MG/3 ML AMPUL NEB PRN (22:32)
[2017-04-03] MEDS: PROMETHAZINE HCL 25 MG TABLET PO PRN (23:08)
[2017-04-03] MEDS: IMIPENEM/CILASTATIN SODIUM 500 MG in DEXTROSE 5%-WATER 100 ML IV SCH (23:19)
[2017-04-04] MEDS: BENZONATATE 100 MG CAPSULE PO SCH ×4 (03:23→22:38)
[2017-04-04] MEDS: INSULIN GLARGINE,HUM.REC.ANLOG 1,000 UNIT/10 ML UNIT SUBCUT SCH (03:23)
[2017-04-04 04:31] LABS: ABSOLUTE BASOPHILS # (AUTO) 0.1 10^3/uL (0.0-0.2); ABSOLUTE LYMPHOCYTES (AUTO) 0.8 10^3/uL (0.5-4.7); ABSOLUTE MONOCYTES (AUTO) 0.4 10^3/uL (0.1-1.4); ABSOLUTE NEUT (AUTO) 4.8 10^3/uL (1.7-8.2); BASOPHILS % (AUTO) 1.4 % (0-2); EOSINOPHILS % (AUTO) 0.5 % (0-6); HEMATOCRIT 26.4 % (36.0-47.0); HEMOGLOBIN 8.7 g/dL (12.0-15.5); HGB HCT DIFFERENCE -0.3; LYMPHOCYTES % (AUTO) 12.3 % (13-45); MEAN CORPUSCULAR HEMOGLOBIN 29.6 pg (27.0-33.4); MEAN CORPUSCULAR HGB CONC 32.9 g/dL (32.0-36.0); MEAN CORPUSCULAR VOLUME 90 fl (80-97); MONOCYTES % (AUTO) 7.2 % (3-13); RED BLOOD COUNT 2.94 10^6/uL (3.72-5.28); RED CELL DISTRIBUTION WIDTH 18.3 % (11.5-14.0); SEGMENTED NEUTROPHILS % (AUTO) 78.6 % (42-78); WHITE BLOOD COUNT 6.1 10^3/uL (4.0-10.5)
[2017-04-04 04:48] LABS: ANION GAP 11 (5-19); BLOOD UREA NITROGEN 40 mg/dL (7-20); CALCIUM 9.3 mg/dL (8.4-10.2); CARBON DIOXIDE 26 mmol/L (22-30); CHLORIDE 100 mmol/L (98-107); CREATININE RESULT 4.51 mg/dL (0.52-1.25); GLUCOSE 142 mg/dL (75-110); POTASSIUM 4.4 mmol/L (3.6-5.0); SODIUM 137.1 mmol/L (137-145)
[2017-04-04] MEDS ORDERED: EPOETIN ALFA INJ 20000 UNIT/1 ML VIAL (RENAL) IV PRN (05:00)
[2017-04-04] MEDS ORDERED: HEPARIN SOD (PORCINE) 1,000 UNIT/ML 10 ML VIAL IV PRN (05:00)
[2017-04-04] MEDS ORDERED: EPOETIN ALFA 10,000 UNIT in SYRINGE, DISPOSABLE, 1 EACH IV PRN (11:00)
[2017-04-04] MEDS ORDERED: PHARMACY COMMUNICATION ORDER MC NR (11:45)
[2017-04-04] MEDS ORDERED: LIDOCAINE 5% (700 MG) TRANSDERMAL ADH..PATCH TP ONE (13:00)
[2017-04-04] MEDS ORDERED: BISACODYL 5 MG TABEC PO ONE (13:00)
[2017-04-04] MEDS: HYDRALAZINE HCL 50 MG TABLET PO SCH ×3 (13:09→22:27)
[2017-04-04] MEDS: AMLODIPINE BESYLATE 10 MG TABLET PO SCH (13:09)
[2017-04-04] MEDS: FAMOTIDINE 20 MG TABLET PO SCH ×2 (13:10→22:27)
[2017-04-04] MEDS: HEPARIN SOD (PORCINE) 5,000 UNIT/ML 1 ML SYRINGE SUBCUT SCH ×2 (13:10→22:27)
--- NOTE | 2017-04-04 13:39 | PDOC PROGRESS REPORT ---
Subjective Progress Note for:: 04/04/17 Subjective:: Patient seen today in dialysis. Patient complains of constipation, nausea, vomiting, dysphagia that has gotten worse over the last several weeks, left upper back pain, cough productive of clear mucous, shortness of breath, dyspnea on exertion. Patient denies fever, chills, chest pain, diarrhea, headache. Patient is amenable to the idea of rehab. She reports she wants to make as many of her medical decisions while she can and is amenable to the idea of a palliative care consult and discussion of MOST form. Physical Exam Vital Signs: Temp Pulse Resp BP Pulse Ox 98.4 F 98 18 130/66 H 100 04/04/17 03:41 04/04/17 03:41 04/04/17 03:41 04/04/17 03:41 04/04/17 03:41 Intake & Output 04/03/17 04/04/17 04/05/17 06:59 06:59 06:59 Intake Total 665 1546 Output Total 45 55 Balance 620 1491 Weight 63.7 kg Exam: General: A+Ox3, mild respiratory distress, mild tachypnea HEENT: AT/NC, PERRL, EOMI, oropharynx is moist, pink, no scleral icterus, no conjunctival injection Neck: No JVD, trachea midline Chest: Right upper chest lars cath, right sided chest tube, diminished right lower, bilateral rales CV: Regular rate and rhythm, normal S1 and S2, no rub, or gallop Abdomen: Soft, nontender to palpation, mildly distended, hypoactive bowel sounds ; no rebound, rigidity, or guarding Extremities: No cyanosis, clubbing or edema Neuro: Cranial nerves II through XII are grossly intact without focal deficits; awake alert and oriented x3 Psych: Normal mood and affect Results Laboratory Results: 04/04/17 04:00 04/04/17 04:00 04/04/17 04/04/17 04:00 04:00 WBC 6.1 RBC 2.94 L Hgb 8.7 L Hct 26.4 L MCV 90 MCH 29.6 MCHC 32.9 RDW 18.3 H Plt Count 212 Seg Neutrophils % 78.6 H Lymphocytes % 12.3 L Monocytes % 7.2 Eosinophils % 0.5 Basophils % 1.4 Absolute Neutrophils 4.8 Absolute Lymphocytes 0.8 Absolute Monocytes 0.4 Absolute Eosinophils 0.0 Absolute Basophils 0.1 Sodium 137.1 Potassium 4.4 Chloride 100 Carbon Dioxide 26 Anion Gap 11 BUN 40 H Creatinine 4.51 H Est GFR ( Amer) 11 L Est GFR (Non-Af Amer) 10 L Glucose 142 H Calcium 9.3 04/01/17 09:25 Sputum Gram Stain - Final 04/01/17 09:25 Sputum Sputum Culture - Final NORMAL [place] Impressions: Chest X-Ray 04/03/17 00:00 IMPRESSION: NO CHANGE IN APPEARANCE OF THE CHEST. Assessment & Plan - Diagnosis (1) Acute hypoxemic respiratory failure Is this a current diagnosis for this admission?: Yes Plan: Continue oxygen to maintain saturation greater than 93 (2) Anemia in chronic renal disease Qualifiers: Chronic kidney disease stage: on chronic dialysis Qualified Code(s): N18.6 - End stage renal disease; D63.1 - Anemia in chronic kidney disease; Z99.2 - Dependence on renal dialysis Is this a current diagnosis for this admission?: Yes Plan: Defer to renal for Epogen (3) ESRD (end stage renal disease) on dialysis Is this a current diagnosis for this admission?: Yes Plan: Appreciate nephrology imput (4) General weakness Is this a current diagnosis for this admission?: Yes Plan: Discharge planning to work on rehab OOB to chair TID PT/OT consult (5) Pneumonia involving left lung Qualifiers: Pneumonia type: due to unspecified organism Lung location: unspecified part of lung Qualified Code(s): J18.9 - Pneumonia, unspecified organism Is this a current diagnosis for this admission?: Yes Plan: Patient's recent sputum grew out normal dakota. She is on day #4 of imipenem. We will continue this patient has a healthcare associated pneumonia. (6) Constipation Qualifiers: Constipation type: unspecified constipation type Qualified Code(s): K59.00 - Constipation, unspecified Is this a current diagnosis for this admission?: Yes Plan: Obtain a KUB. Place patient on Colace and give Dulcolax. (7) Esophageal stricture Is this a current diagnosis for this admission?: Yes Plan: Patient has history of esophageal stricture and reports that she recently has been having increased difficulty with dysphasia. Will obtain a Gastrografin swallow to assess patient's need for possible further dilation. Patient also reports some upper back pain on the left and this does give me concern and pause for possible microperforation (8) Pleural effusion on right Is this a current diagnosis for this admission?: Yes Plan: Patient with ongoing Pleurx catheter. Will obtain a culture from this (9) HLD (hyperlipidemia) Qualifiers: Hyperlipidemia type: unspecified Qualified Code(s): E78.5 - Hyperlipidemia , unspecified Is this a current diagnosis for this admission?: Yes Plan: Continue statin (10) HTN (hypertension) Qualifiers: Hypertension type: essential hypertension Qualified Code(s): I10 - Essential (primary) hypertension Is this a current diagnosis for this admission?: Yes Plan: Currently well-controlled Generic Name Dose Route Start Last Admin Trade Name Freq PRN Reason Stop Dose Admin Amlodipine Besylate 10 mg 04/03/17 10:00 04/04/17 13:09 Norvasc 10 Mg Tablet PO 05/03/17 09:59 10 mg DAILY YAZAN Doxazosin Mesylate 2 mg 04/03/17 10:00 04/03/17 10:15 Cardura 2 Mg Tablet PO 05/03/17 09:59 2 mg DAILY YAZAN Hydralazine HCl 50 mg 04/03/17 14:00 04/04/17 13:09 Apresoline 50 Mg Tablet PO 05/03/17 13:59 50 mg Q8 YAZAN (11) LESLIE (obstructive sleep apnea) Is this a current diagnosis for this admission?: Yes (12) Type 1 diabetes mellitus with nephropathy Is this a current diagnosis for this admission?: Yes Plan: Hold lantus as patient has not been taking po continue with SSI (13) DNR (do not resuscitate) Is this a current diagnosis for this admission?: Yes (14) hx of esophageal perforation Is this a current diagnosis for this admission?: Yes - Time Time Spent with patient: 35 or more minutes Medications reviewed and adjusted accordingly: Yes Anticipated discharge: Acute Rehab
--- NOTE | 2017-04-04 14:42 | RADIOLOGY REPORT (SQ) ---
EXAM DESCRIPTION: CT CHEST WITHOUT COMPLETED DATE/TIME: 04/04/2017 2:15 pm REASON FOR STUDY: concern for abscess mediastinum COMPARISON: Prior CT chest 02/27/2017, 08/09/2016 TECHNIQUE: CT scan performed of the chest without intravenous contrast. Images reviewed with lung, soft tissue and bone windows. Reconstructed coronal and sagittal MPR images reviewed. All images st ored on PACS. This study was performed immediately after barium swallow to evaluate the esophageal lumen. All CT scanners at this facility use dose modulation, iterative reconstruction, and/or weight based d osing when appropriate to reduce radiation dose to as low as reasonably achievable (ALARA). [facility]: Dose Right [facility]: CareDose [facility]: Dose Right [facility]: Teradose 4D [facility]: [email or web address] RADIATION DOSE: Up-to-date CT equipment and radiation dose reduction techniques were employed. CTDIv ol: 4.6 mGy. DLP: 176 mGy-cm. mGy. LIMITATIONS: No technical limitations. FINDINGS: LUNGS AND PLEURA: There is a small amount of residual contrast in the upper half of the es ophagus. No extravasation of contrast into the right chest is identified. Esophagram demonstrates a 5 to 7 cm long high-grade narrowing inferior to the level of the alhaji. This narrowing is best maria isabel wn on coronal reconstruction images 48-51. Nearly the entire right chest is filled with loculated pleural fluid. There is a pigtail catheter in the right upper pleural space. No fluid is seen around the pigtail catheter. A small amount of aer ated right upper lobe is present. Right lower lobe is near completely opacified fluid and consolidat ion. A moderate size freely layering pleural effusion is seen on the left. There is patchy airspace disea se in the left upper and lower lobe atelectasis versus pneumonia. No right or left pneumothorax. HILAR AND MEDIASTINAL STRUCTURES: Lower 3rd esophageal stricture as above. There are enlarged prevas cular lymph nodes, similar compared to CT 02/27/2017. Right-sided central venous dialysis catheter ti p in the right atrium. HEART AND VASCULAR STRUCTURES: No aneurysm. No pericardial effusion. UPPER ABDOMEN: No significant findings. Limited exam. THYROID AND OTHER SOFT TISSUES: Enlarged thyroid, stable. BONES: No acute changes HARDWARE: None in the chest. OTHER: No other significant findings. IMPRESSION: Increase in loculated right pleural fluid compared to 02/27/2017. Today's study was performed immediately after of contrast esophagram. There is no leakage of contras t into the right chest. There is a 5 to 7 cm long high-grade narrowing of the lower 3rd of the esoph sarwat, inferior to the level of the alhaji. These findings were discussed with Dr. Laurent TECHNICAL DOCUMENTATION: JOB ID: [id number] Quality ID # [id number]: Final reports with documentation of one or more dose reduction techniques (e.g., Au tomated exposure control, adjustment of the mA and/or kV according to patient size, use of iterative reconstruction technique) 2010 [employer]- All Rights Reserved
--- NOTE | 2017-04-04 14:46 | RADIOLOGY REPORT (SQ) ---
EXAM DESCRIPTION: BARIUM SWALLOW ESOPHAGUS COMPLETED DATE/TIME: 04/04/2017 1:53 pm REASON FOR STUDY: hx of esophageal rupture, ?stricture, dysphagia COMPARISON: Esophogram 02/28/2017 TECHNIQUE: Under fluoroscopic guidance, patient ingested water soluble contrast followed by thin bar ium. Fluoroscopic spot images and routine radiographic images acquired and stored on PACS. 12 MM BARIUM TABLET GIVEN: No LIMITATIONS: None. FLUOROSCOPY TIME: 1 minutes 4 seconds 6 series of digital images saved to PACS. FINDINGS: NEUROMUSCULAR COORDINATION OF SWALLOW: Normal. No aspiration. Cookie swallow canceled. ESOPHAGEAL MOTILITY and MUCOSA: Normal peristalsis. A 5 to 7 cm long high-grade stricture of the dis isreal 3rd of the esophagus is present from the alhaji to the GE junction. No extravasation of contrast from the distal esophagus. The proximal esophagus is dilated. GASTRO-ESOPHAGEAL JUNCTION: No reflux. NON-GI TRACT STRUCTURES: Right jugular central venous dialysis catheter tip in the superior vena cava . Increase in opacification of the lower right hemithorax from increasing pleural effusion. OTHER: Report discussed with Dr. Laurent IMPRESSION: Persistent high-grade narrowing of the distal 3rd of the esophagus. No extravasation identified under fluoro. COMMENT: Quality ID 145: Final reports for procedures using fluoroscopy that document radiation exp osure indices, or exposure time and number of fluorographic images (if radiation exposure indices are not available) TECHNICAL DOCUMENTATION: JOB ID: [id number] [employer]- All Rights Reserved
[2017-04-04] MEDS: DOXAZOSIN MESYLATE 2 MG TABLET PO SCH (15:04)
[2017-04-04] MEDS: IMIPENEM/CILASTATIN SODIUM 500 MG in DEXTROSE 5%-WATER 100 ML IV SCH ×2 (15:04→22:28)
[2017-04-04] MEDS: OXYCODONE HCL IR 5 MG TABLET PO PRN (15:14)
--- NOTE | 2017-04-04 15:47 | PDOC PROGRESS REPORT ---
Subjective Progress Note for:: 04/04/17 Subjective:: Patient is seen today on dialysis. She is still short of breath. She is complaining of dysphagia to solids. She tells me that barium swallow is in the works. Denies any history of chest pains, fever chills. She says there is not much of drainage coming out of the Pleurx tube. However it was bloody yesterday and today it is slightly pink. I did review the discharge notes from [facility] dated 03/23/17. States that evaluation of the loculated right pleural effusion initially by CT followed by a pigtail catheter and fluid cytology finally was consistent with adenocarcinoma. She has since discharge had initial visit with Dr. Lance/ [facility] oncologist. Currently undergoing dialysis without any issues. Vital signs are stable. Orders were discussed with the treating dialysis nurse Ariana. Physical Exam Vital Signs: Temp Pulse Resp BP Pulse Ox 98.2 F 95 16 147/60 H 96 04/04/17 07:47 04/04/17 07:49 04/04/17 07:49 04/04/17 07:47 04/04/17 07:49 Intake & Output 04/03/17 04/04/17 04/05/17 06:59 06:59 06:59 Intake Total 665 1546 Output Total 45 55 900 Balance 620 1491 -900 Weight 63.7 kg General appearance: PRESENT: mild distress Respiratory exam: PRESENT: clear to auscultation jose, decreased breath sounds. ABSENT: crackles, rhonchi Cardiovascular exam: PRESENT: +S1, +S2, systolic murmur GI/Abdominal exam: PRESENT: normal bowel sounds, soft. ABSENT: distended, tenderness Extremities exam: ABSENT: pedal edema Neurological exam: PRESENT: alert, awake, oriented to person, oriented to place Results Laboratory Results: 04/04/17 04:00 04/04/17 04:00 04/04/17 04/04/17 04:00 04:00 WBC 6.1 RBC 2.94 L Hgb 8.7 L Hct 26.4 L MCV 90 MCH 29.6 MCHC 32.9 RDW 18.3 H Plt Count 212 Seg Neutrophils % 78.6 H Lymphocytes % 12.3 L Monocytes % 7.2 Eosinophils % 0.5 Basophils % 1.4 Absolute Neutrophils 4.8 Absolute Lymphocytes 0.8 Absolute Monocytes 0.4 Absolute Eosinophils 0.0 Absolute Basophils 0.1 Sodium 137.1 Potassium 4.4 Chloride 100 Carbon Dioxide 26 Anion Gap 11 BUN 40 H Creatinine 4.51 H Est GFR ( Amer) 11 L Est GFR (Non-Af Amer) 10 L Glucose 142 H Calcium 9.3 Impressions: Chest X-Ray 04/03/17 00:00 IMPRESSION: NO CHANGE IN APPEARANCE OF THE CHEST. Chest CT 04/04/17 00:00 IMPRESSION: Increase in loculated right pleural fluid compared to 02/27/2017. Today's study was performed immediately after of contrast esophagram. There is no leakage of contrast into the right chest. There is a 5 to 7 cm long high- grade narrowing of the lower 3rd of the esophagus, inferior to the level of the alhaji. These findings were discussed with Dr. Laurent Esophagus X-Ray 04/04/17 00:00 IMPRESSION: Persistent high-grade narrowing of the distal 3rd of the esophagus. No extravasation identified under fluoro. Assessment & Plan - Diagnosis (1) ESRD (end stage renal disease) on dialysis Is this a current diagnosis for this admission?: Yes Plan: Patient seen on hemodialysis. She is undergoing dialysis without any issues. Is being supervised to ensure safe and smooth procedure. Vital signs are stable. Plan to remove 1-1.5 fluid. Orders were discussed with the treating nurse. (2) Anemia in chronic renal disease Qualifiers: Chronic kidney disease stage: on chronic dialysis Qualified Code(s): N18.6 - End stage renal disease; D63.1 - Anemia in chronic kidney disease; Z99.2 - Dependence on renal dialysis Is this a current diagnosis for this admission?: Yes Plan: I have ordered increasing erythropoietin to 4000. (3) Pneumonia involving left lung Qualifiers: Pneumonia type: due to unspecified organism Lung location: unspecified part of lung Qualified Code(s): J18.9 - Pneumonia, unspecified organism Is this a current diagnosis for this admission?: Yes Plan: Patient on antibiotics. Dose appropriate. Follow on cultures. Follow up on notes from [facility] on discharge as mentioned earlier states that she has adenocarcinoma on fluid cytology.Given the fact that she had CA of the colon few years earlier, the presence of adenocarcinoma in the lungs is indicative of likely metastatic lesion from that and thereby indicating of stage IV disease.Patient had seen Dr. Lance as an outpatient 1. (4) Diabetes Qualifiers: Diabetes mellitus type: type 2 Diabetes mellitus complication status: with kidney complications Diabetes mellitus custodial insulin use: with director long term care use Chronic kidney disease stage: on chronic dialysis Is this a current diagnosis for this admission?: Yes (5) Hypertension associated with diabetes Plan: Relatively well controlled. Monitor. (6) Pleural effusion on right Is this a current diagnosis for this admission?: Yes Plan: As per discharge notes highlighted earlier, there were able to retrieve adenocarcinoma cells from the pleural fluid. (7) LESLIE (obstructive sleep apnea) Is this a current diagnosis for this admission?: Yes (8) Esophageal stricture Is this a current diagnosis for this admission?: Yes Plan: Follow-up on the barium swallow.
--- NOTE | 2017-04-04 16:45 | RADIOLOGY REPORT (SQ) ---
EXAM DESCRIPTION: KUB/ABDOMEN (SINGLE VIEW) COMPLETED DATE/TIME: 04/04/2017 1:53 pm REASON FOR STUDY: decreased BS, abd pain, vomiting COMPARISON: Barium swallow earlier today NUMBER OF VIEWS: One view. TECHNIQUE: Supine radiographic image of the abdomen acquired. LIMITATIONS: None. FINDINGS: BOWEL GAS PATTERN: There is a small amount of oral contrast in the stomach post barium swa llow. Nonobstructive bowel gas pattern. CALCIFICATIONS: Calcified pelvic phleboliths. SOFT TISSUES: No gross mass or suggestion of organomegaly. HARDWARE: Surgical clips right lower quadrant. BONES: Multilevel degenerative disc changes with convex rightward lumbar curvature OTHER: No other significant finding. IMPRESSION: Nonobstructive bowel gas pattern TECHNICAL DOCUMENTATION: JOB ID: [id number] [employer]- All Rights Reserved
[2017-04-04] MEDS: DOCUSATE SODIUM 100 MG CAPSULE PO SCH (18:33)
[2017-04-04] MEDS: ATORVASTATIN CALCIUM 10 MG TABLET PO SCH (22:27)
--- NOTE | 2017-04-04 22:32 | Palliative Consultation Report ---
Consultation From:: ROM ROMO Consult Reason: abnormal cxr - HPI HPI: Palliative care visit 04/04/17 2:15-2:50 PM Appreciate palliative care referral with this unfortunate 76 year old woman who has many conditions which have caused her to ask if she can put her wishes for end of life care in writing. She is currently admitted for pneumonia and respiratory distress. Ms. Mercedes is on hemodialysis 3 times a week. She has a large pleural effusion and has had a pleurex drain put in at [facility] about two weeks ago. She has been draining it herself before admission to hospital. Dr. Rocha consulted with doctors at [facility] and was told that patient has history of adenocarcinoma of the colon and the fluid withdrawn form the pleural effusion also had adenocarcinoma cells. The effusion has gotten worse during admission. Ms. Mercedes also has dysphagia from esophageal strictures which have been treated in the past, but are again causing swallowing difficulties. She had a PEG tube at one time, but it was removed. Although patient is alert, oriented and her friend who helps her all of the time is at her bedside, patient tole me she is very tired from dialysis and tests done today and she would prefer to complete her MOST form and discuss options tomorrow. She has no family and thus wants her wishes to be documented in addition to her DNR. She is well spoken and cheerful, but frail and obviously exhausted. Onset: Just prior to arrival Onset/Duration: Gradual Quality of Pain: No pain Pain Level: Denies Associated Symptoms: Productive cough, Shortness of breath, Weakness Exacerbated by: Movement Past Medical History(Consults) - General Information Source: Patient, [facility] Records Home Medications: Amlodipine Besylate [Norvasc 10 mg Tablet] 10 mg PO DAILY 04/01/17 Atorvastatin Calcium [Lipitor 10 mg Tablet] 10 mg PO QHS 04/01/17 Doxazosin Mesylate [Cardura 2 mg Tablet] 2 mg PO DAILY 04/01/17 Hydralazine HCl [Apresoline 50 mg Tablet] 50 mg PO TID 04/01/17 Insulin Glargine,Hum.rec.anlog [Yadira Flor] 10 units SUBCUT QHS 04/01/17 Ranitidine HCl [Zantac] 300 mg PO BID 04/01/17 Sodium Bicarbonate [Sodium Bicarbonate 650 mg Tablet] 650 mg PO DAILY 04/01/17 Allergies/Adverse Reactions: Shellfish * Allergy (Severe, Verified 04/10/15 18:06) Anaphylaxis Penicillins Allergy (Unknown, Verified 04/10/15 18:06) Anaphylaxis prednisone [Prednisone] Allergy (Unknown, Verified 04/10/15 18:06) Sulfa (Sulfonamide Antibiotics) Allergy (Unknown, Verified 04/10/15 18:06) Anaphylaxis - Social History Lives with: Alone Family History: Reviewed & Not Pertinent, CAD, CVA, DM, Hypertension, Malignancy - Mother had breast cancer Parental Family History Reviewed: No Children Family History Reviewed: No Sibling(s) Family History Reviewed.: No Smoking Status: Former Smoker Cigarettes Packs Per Day: 1 Number of Years Smokin Frequency of Alcohol Use: None Hx Recreational Drug Use: No Drugs: None Hx Prescription Drug Abuse: No - Past Medical History Cardiac Medical History: Reports: Hx Congestive Heart Failure - Possible, Hx Coronary Artery Disease, Hx Hypercholesterolemia, Hx Hypertension, Hx Heart Murmur Denies: Hx Atrial Fibrillation, Hx DVT, Hx Heart Attack, Hx Peripheral Vascular Disease, Hx Pulmonary Embolism Pulmonary Medical History: Reports: Hx Bronchitis - 30 years ago, Hx Sleep Apnea - Not compliant with CPAP mask Denies: Hx Asthma, Hx COPD, Hx Pneumonia, Hx Respiratory Failure, Hx Tuberculosis Neurological Medical History: Reports: Hx Seizures - Distant history of seizure , felt to be secondary to antibiotic. Endocrine Medical History: Reports: Hx Diabetes Mellitus Type 1, Hx Diabetes Mellitus Type 2. Denies: Hx Hyperthyroidism, Hx Hypothyroidism Renal/ Medical History: Reports: Hx End Stage Renal Disease, Hx Peritoneal Dialysis - , , Sun Malignancy Medical History: Reports: Hx Colorectal Cancer - Status post colon resection in 2012. Denies: Hx Breast Cancer, Hx Cervical Cancer, Hx Leukemia, Hx Lung Cancer, Hx Ovarian Cancer GI Medical History: Reports: Hx Gastroesophageal Reflux Disease. Denies: Hx Cirrhosis, Hx Crohn's Disease, Hx Hiatal Hernia, Hx Ulcerative Colitis Musculoskeltal Medical History: Reports Hx Arthritis, Denies Hx Fibromyalgia Psychiatric Medical History: Denies: Hx Dementia, Hx Depression Traumatic Medical History: Reports: Hx Fractures - left neck Infectious Medical History: Denies: Hx HIV Hematology: Reports: Anemia Denies: Hemophilia, Sickle Cell Disease - Surgical History Past Surgical History: Reports: Hx Abdominal Surgery - colon resection, esophageal stents, Hx Orthopedic Surgery - neck 1990s, Other - Partial colectomy 2012; procedures related to esophageal perforation,08/25.. Denies: Hx Appendectomy, Hx Section, Hx Cholecystectomy, Hx Colostomy, Hx Coronary Artery Bypass Graft, Hx Gastric Bypass Surgery, Hx Herniorrhaphy, Hx Hysterectomy, Hx Mastectomy, Hx Pacemaker, Hx Tonsillectomy, Hx Tubal Ligation Review of systems Constitutional: Weakness EENT: No symptoms reported Cardiovascular: Orthopnea Respiratory: Cough, Short of breath Gastrointestinal: Constipation Geniturinary: No symptoms reported Female Genitourinary: No symptoms reported Musculoskeltal: No symptoms reported Skin: No symptoms reported Neurological/Psychological: Anxiety, Weakness Ojective:Exam Vital Signs: Temp Pulse Resp BP Pulse Ox 98.7 F 104 H 18 129/90 H 94 04/04/17 19:28 04/04/17 20:00 04/04/17 20:00 04/04/17 19:28 04/04/17 20:00 Intake & Output 04/03/17 04/04/17 04/05/17 06:59 06:59 06:59 Intake Total 665 1546 310 Output Total 45 55 900 Balance 620 1491 -590 Weight 63.7 kg - General General Appearance: Alert In distress: None - Respiratory Respiratory Status: No respiratory distress Chest Status: Pain with cough - Cardiovascular Rhythm: Regular Pulses: Normal: Radial - Psychological Associated symptoms: Normal mood - Appears very tired and weak. Objective-Diagnostic Laboratory: 04/04/17 04:00 04/04/17 04:00 04/04/17 04/04/17 04:00 04:00 WBC 6.1 RBC 2.94 L Hgb 8.7 L Hct 26.4 L MCV 90 MCH 29.6 MCHC 32.9 RDW 18.3 H Plt Count 212 Seg Neutrophils % 78.6 H Lymphocytes % 12.3 L Monocytes % 7.2 Eosinophils % 0.5 Basophils % 1.4 Absolute Neutrophils 4.8 Absolute Lymphocytes 0.8 Absolute Monocytes 0.4 Absolute Eosinophils 0.0 Absolute Basophils 0.1 Sodium 137.1 Potassium 4.4 Chloride 100 Carbon Dioxide 26 Anion Gap 11 BUN 40 H Creatinine 4.51 H Est GFR ( Amer) 11 L Est GFR (Non-Af Amer) 10 L Glucose 142 H Calcium 9.3 Plan and Recommendation Plan and Recommendation: I will return in the AM to help patient complete MOST form and discuss options and availability of care. Patient lives alone and is too weak to continue to live independently. Patient denies pain at present and is not having a lot of dyspnea, but is just very tired and wants to nap. Consultation with Dr Rocha regarding patients conditions and options. Appreciate opportunity to participate in care of this sweet lady. - Time Spent with Patient Time spent with patient: 15 to 30 Minutes - Short visit with patient after nurse left, too tired to continue conversation.
[2017-04-05] MEDS: OXYCODONE HCL IR 5 MG TABLET PO PRN (03:05)
[2017-04-05] MEDS: HYDRALAZINE HCL 50 MG TABLET PO SCH ×3 (06:11→22:35)
[2017-04-05] MEDS: BENZONATATE 100 MG CAPSULE PO SCH ×3 (06:11→22:35)
--- NOTE | 2017-04-05 09:58 | PDOC PROGRESS REPORT ---
Subjective Progress Note for:: 04/05/17 Subjective:: Awake alert well oriented Physical Exam Vital Signs: Temp Pulse Resp BP Pulse Ox 98.3 F 92 16 144/66 H 96 04/05/17 07:02 04/05/17 07:54 04/05/17 07:54 04/05/17 07:02 04/05/17 07:54 Intake & Output 04/04/17 04/05/17 04/06/17 06:59 06:59 06:59 Intake Total 1546 1020 Output Total 55 900 55 Balance 1491 120 -55 Weight 63.7 kg 63.4 kg General appearance: PRESENT: no acute distress, cooperative, thin, well- developed Head exam: PRESENT: atraumatic, normocephalic Eye exam: PRESENT: conjunctiva pale, EOMI Mouth exam: PRESENT: dry mucosa, neck supple, tongue midline Neck exam: PRESENT: carotid bruit Respiratory exam: PRESENT: decreased breath sounds, prolonged expiratory phas, rales, rhonchi, symmetrical, unlabored, other - Pleurodex catheter right chest wall. ABSENT: retraction, stridor, tachypnea, wheezes Cardiovascular exam: PRESENT: RRR, +S1, +S2 Pulses: PRESENT: normal radial pulses GI/Abdominal exam: PRESENT: normal bowel sounds, soft. ABSENT: distended, guarding, mass, organolmegaly, rebound, tenderness Rectal exam: PRESENT: deferred Gentrourinary exam: PRESENT: indwelling catheter Musculoskeletal exam: PRESENT: normal inspection Neurological exam: PRESENT: alert, awake Psychiatric exam: PRESENT: normal mood Skin exam: PRESENT: dry, warm Results Laboratory Results: 04/04/17 04:00 04/04/17 04:00 Impressions: Chest X-Ray 04/03/17 00:00 IMPRESSION: NO CHANGE IN APPEARANCE OF THE CHEST. Chest CT 04/04/17 00:00 IMPRESSION: Increase in loculated right pleural fluid compared to 02/27/2017. Today's study was performed immediately after of contrast esophagram. There is no leakage of contrast into the right chest. There is a 5 to 7 cm long high- grade narrowing of the lower 3rd of the esophagus, inferior to the level of the alhaji. These findings were discussed with Dr. Laurent Esophagus X-Ray 04/04/17 00:00 IMPRESSION: Persistent high-grade narrowing of the distal 3rd of the esophagus. No extravasation identified under fluoro. KUB X-Ray 04/04/17 00:00 IMPRESSION: Nonobstructive bowel gas pattern Assessment & Plan - Diagnosis (1) DNR (do not resuscitate) Is this a current diagnosis for this admission?: Yes (2) ESRD (end stage renal disease) on dialysis Is this a current diagnosis for this admission?: Yes (3) Pleural effusion Is this a current diagnosis for this admission?: Yes (4) CKD (chronic kidney disease) stage 4, GFR 15-29 ml/min Is this a current diagnosis for this admission?: Yes (5) Esophageal perforation Is this a current diagnosis for this admission?: No (6) Esophageal stricture Is this a current diagnosis for this admission?: Yes (7) Hiatal hernia Is this a current diagnosis for this admission?: Yes (8) Loculated pleural effusion Is this a current diagnosis for this admission?: Yes (9) Pleural effusion on right Is this a current diagnosis for this admission?: Yes (10) Renal tubular acidosis, type IV Is this a current diagnosis for this admission?: Yes (11) LESLIE (obstructive sleep apnea) Is this a current diagnosis for this admission?: Yes - Plan Summary Plan Summary: See palliative care consult
[2017-04-05] MEDS: FAMOTIDINE 20 MG TABLET PO SCH ×2 (10:33→22:35)
[2017-04-05] MEDS: AMLODIPINE BESYLATE 10 MG TABLET PO SCH (10:33)
[2017-04-05] MEDS: HEPARIN SOD (PORCINE) 5,000 UNIT/ML 1 ML SYRINGE SUBCUT SCH ×2 (10:33→22:35)
[2017-04-05] MEDS: DOXAZOSIN MESYLATE 2 MG TABLET PO SCH (10:33)
[2017-04-05] MEDS: DOCUSATE SODIUM 100 MG CAPSULE PO SCH ×2 (10:38→17:41)
[2017-04-05] MEDS: IMIPENEM/CILASTATIN SODIUM 500 MG in NORMAL SALINE 100 ML IV SCH ×2 (10:38→22:43)
[2017-04-05] MEDS: LIDOCAINE 5% (700 MG) TRANSDERMAL ADH..PATCH TP SCH (10:44)
--- NOTE | 2017-04-05 15:08 | PDOC PROGRESS REPORT ---
Subjective Progress Note for:: 04/05/17 Subjective:: Patient is seen earlier today with Ruben Leigh and nurse at bedside. Patient reiterates her desire to go to inpatient hospice. She would like to have dialysis again tomorrow before going in order to buy some time for her family to perhaps come from out of state. Currently patient is having shortness of breath, some chest discomfort, but denies fever, chills, nausea, vomiting. Patient still unable to tolerate solids. Physical Exam Vital Signs: Temp Pulse Resp BP Pulse Ox 98.5 F 108 H 20 129/79 H 97 04/05/17 11:01 04/05/17 14:00 04/05/17 11:01 04/05/17 11:01 04/05/17 11:01 Intake & Output 04/04/17 04/05/17 04/06/17 06:59 06:59 06:59 Intake Total 1546 1020 150 Output Total 55 900 55 Balance 1491 120 95 Weight 63.7 kg 63.4 kg Exam: General: A+Ox3, moderate respiratory distress, moderate tachypnea, 5 word dyspnea HEENT: AT/NC, PERRL, EOMI, oropharynx is moist, pink, no scleral icterus, no conjunctival injection Neck: No JVD, trachea midline Chest: Right upper chest lars cath, right sided chest tube, diminished right lung, diminished left lower lung, patient has breath sounds only in her right upper lobe and left upper lobe. CV: Regular rate and rhythm, normal S1 and S2, no rub or gallop Abdomen: Soft, nontender to palpation, mildly distended, active bowel sounds; no rebound, rigidity, or guarding Extremities: No cyanosis, clubbing or edema Neuro: Cranial nerves II through XII are grossly intact without focal deficits; awake alert and oriented x3 Psych: Normal mood and affect Results Laboratory Results: 04/04/17 04:00 04/04/17 04:00 Impressions: Chest X-Ray 04/03/17 00:00 IMPRESSION: NO CHANGE IN APPEARANCE OF THE CHEST. Chest CT 04/04/17 00:00 IMPRESSION: Increase in loculated right pleural fluid compared to 02/27/2017. Today's study was performed immediately after of contrast esophagram. There is no leakage of contrast into the right chest. There is a 5 to 7 cm long high- grade narrowing of the lower 3rd of the esophagus, inferior to the level of the alhaji. These findings were discussed with Dr. Laurent Esophagus X-Ray 04/04/17 00:00 IMPRESSION: Persistent high-grade narrowing of the distal 3rd of the esophagus. No extravasation identified under fluoro. KUB X-Ray 04/04/17 00:00 IMPRESSION: Nonobstructive bowel gas pattern Assessment & Plan - Diagnosis (1) Adenocarcinoma Is this a current diagnosis for this admission?: Yes Plan: After discussing this with the patient, she states that I am not strong enough for chemotherapy or radiation. Regardless of the original source, presence in the pleural fluid represents metastatic spread. Patient requests inpatient hospice. (2) Acute hypoxemic respiratory failure Is this a current diagnosis for this admission?: Yes Plan: Continue oxygen (3) Anemia in chronic renal disease Qualifiers: Chronic kidney disease stage: on chronic dialysis Qualified Code(s): N18.6 - End stage renal disease; D63.1 - Anemia in chronic kidney disease; Z99.2 - Dependence on renal dialysis Is this a current diagnosis for this admission?: Yes (4) ESRD (end stage renal disease) on dialysis Is this a current diagnosis for this admission?: Yes Plan: Plan for dialysis tomorrow then transferred to inpatient hospice where she will no longer receive dialysis. Discussed this with Dr. Salter who is in agreement with this plan. (5) General weakness Is this a current diagnosis for this admission?: Yes (6) Pneumonia involving left lung Qualifiers: Pneumonia type: due to unspecified organism Lung location: unspecified part of lung Qualified Code(s): J18.9 - Pneumonia, unspecified organism Is this a current diagnosis for this admission?: Yes (7) Constipation Qualifiers: Constipation type: unspecified constipation type Qualified Code(s): K59.00 - Constipation, unspecified Is this a current diagnosis for this admission?: Yes (8) Esophageal stricture Is this a current diagnosis for this admission?: Yes (9) Pleural effusion on right Is this a current diagnosis for this admission?: Yes (10) HLD (hyperlipidemia) Qualifiers: Hyperlipidemia type: unspecified Qualified Code(s): E78.5 - Hyperlipidemia , unspecified Is this a current diagnosis for this admission?: Yes (11) HTN (hypertension) Qualifiers: Hypertension type: essential hypertension Qualified Code(s): I10 - Essential (primary) hypertension Is this a current diagnosis for this admission?: Yes (12) LESLIE (obstructive sleep apnea) Is this a current diagnosis for this admission?: Yes (13) Type 1 diabetes mellitus with nephropathy Is this a current diagnosis for this admission?: Yes (14) DNR (do not resuscitate) Is this a current diagnosis for this admission?: Yes (15) hx of esophageal perforation Is this a current diagnosis for this admission?: Yes - Time Time Spent with patient: 25-34 minutes Medications reviewed and adjusted accordingly: Yes Anticipated discharge: Hospice Within: within 24 hours
--- NOTE | 2017-04-05 16:07 | PDOC PROGRESS REPORT ---
Subjective Progress Note for:: 04/05/17 Subjective:: Patient is currently short of breath. She will be moving to inpatient hospice tomorrow after dialysis. Dialysis will be d/c after tomorrow. She is still not able to eat or drink very much. Denies any fevers or chills. Physical Exam Vital Signs: Temp Pulse Resp BP Pulse Ox 98.5 F 108 H 20 129/79 H 97 04/05/17 11:01 04/05/17 14:00 04/05/17 11:01 04/05/17 11:01 04/05/17 11:01 Intake & Output 04/04/17 04/05/17 04/06/17 06:59 06:59 06:59 Intake Total 1546 1020 150 Output Total 55 900 55 Balance 1491 120 95 Weight 63.7 kg 63.4 kg General appearance: PRESENT: mild distress. ABSENT: well-developed, well- nourished Head exam: PRESENT: atraumatic, normocephalic Mouth exam: PRESENT: moist, neck supple, tongue midline Neck exam: PRESENT: full ROM. ABSENT: JVD Respiratory exam: PRESENT: accessory muscle use, crackles, rhonchi. ABSENT: chest wall tenderness, clear to auscultation jose Cardiovascular exam: PRESENT: +S1, +S2, systolic murmur GI/Abdominal exam: PRESENT: normal bowel sounds, soft. ABSENT: distended, tenderness Extremities exam: ABSENT: joint swelling, pedal edema, tenderness Musculoskeletal exam: PRESENT: full ROM, normal inspection. ABSENT: tenderness Neurological exam: PRESENT: alert, awake, oriented to person, oriented to place , oriented to time, oriented to situation Psychiatric exam: PRESENT: appropriate affect, normal mood Skin exam: PRESENT: dry, intact. ABSENT: cyanosis Results Laboratory Results: 04/04/17 04:00 04/04/17 04:00 Impressions: Chest X-Ray 04/03/17 00:00 IMPRESSION: NO CHANGE IN APPEARANCE OF THE CHEST. Chest CT 04/04/17 00:00 IMPRESSION: Increase in loculated right pleural fluid compared to 02/27/2017. Today's study was performed immediately after of contrast esophagram. There is no leakage of contrast into the right chest. There is a 5 to 7 cm long high- grade narrowing of the lower 3rd of the esophagus, inferior to the level of the alhaji. These findings were discussed with Dr. Laurent Esophagus X-Ray 04/04/17 00:00 IMPRESSION: Persistent high-grade narrowing of the distal 3rd of the esophagus. No extravasation identified under fluoro. KUB X-Ray 04/04/17 00:00 IMPRESSION: Nonobstructive bowel gas pattern Assessment & Plan - Diagnosis (1) Adenocarcinoma Is this a current diagnosis for this admission?: Yes Plan: Moving to inpatient hospices in [place]. (2) Anemia in chronic renal disease Qualifiers: Chronic kidney disease stage: on chronic dialysis Qualified Code(s): N18.6 - End stage renal disease; D63.1 - Anemia in chronic kidney disease; Z99.2 - Dependence on renal dialysis Is this a current diagnosis for this admission?: Yes Plan: Receives epogen during dialysis. Will discuss with patient tomorrow if she wants to receive the epogen. (3) ESRD (end stage renal disease) on dialysis Is this a current diagnosis for this admission?: Yes Plan: Will run final treatment of dialysis tomorrow and then she will discontinue when she moves to hospices. (4) Diabetes Qualifiers: Diabetes mellitus type: type 2 Diabetes mellitus complication status: with kidney complications Diabetes mellitus jail insulin use: with terminal press operator use Chronic kidney disease stage: on chronic dialysis Is this a current diagnosis for this admission?: Yes Plan: continue current medications (5) Esophageal stricture Is this a current diagnosis for this admission?: Yes Plan: barium swallow was canceled (6) HTN (hypertension) Qualifiers: Hypertension type: essential hypertension Qualified Code(s): I10 - Essential (primary) hypertension Is this a current diagnosis for this admission?: Yes Plan: controlled with medication.
--- NOTE | 2017-04-05 22:30 | Progress Note ---
Provider Note Provider Note: Palliative care Follow up visit 04/05/17 9:30- 10:20 AM Ms. Mercedes is followed by palliative care to help her makes decisions about care since she has so many problems. 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 She is alert and well oriented but doesnt want to continue dialysis,refuses feeding tube and is having conversational dyspnea requiring breath every 3-4 words. She is eating only a few bites and drinking little po fluids. She is having pain, but opiods are being used sparingly due to her dyspnea. S: Visit with patient to discuss her options for care and her wishes for end of life choices. WHen I arrived, Dr. Rocha was visiting with patient and they informed me she is going to hospice care center. Mrs. Mercedes seemed very positive about this choice and had no questions. She had some friends come in from the [place] and asked if she could "tell them her news". After giving her a few minutes with ehr friends and consulting with Dr. Rocha, I went douglas to Mrs. Mercedes to ask if she wanted to be transferred today or have one more dialysis treatment tomorrow. AT this time, patient was very surprised that this would be her last dialysis treatment. She thought they would continue. She asked about other options, and we discussed home care wiht her friends staying with her, she talked about her mother and sister possibly coming to [place] from [place] to take care of her (although her mother is in her 90's and just was discharged from hospital herself). We discussed dialysis in relation to her other problems. Patient is complaining of some chest pain and reports being very tired and ready to be with God unless it is His will to heal her. O: Vital signs stable with heart rate 100-110; O2 sats 90's with oxygen per NC at 3 liters. Alert, speech clear, oriented and realistic about her condition but only a little anxious. respirations very labored, moderate conversational dyspnea with breath every 3-4 words. A/P: ESRD: States she is ready to stop dialysis but wants one more treatment so she can think well to get some things done while she is alert. Respiratory distress related to pleural effusions, metastatic colon cancer to lung and pneumonia; to continue oxygen and use morphine as needed. Esophageal stricture prohibits eating and reduces amount PO liquids. Patient taking only few bites, sips liquid. Dyspnea inhibits ability to eat/ drink also. Patient wants to talk to her sister and is agreeable to go to Hospice care center after she has another dialysis unless she improves greatly. Discussed with hospice liason and Dr. Rocha. Will follow.
[2017-04-05] MEDS: ATORVASTATIN CALCIUM 10 MG TABLET PO SCH (22:35)
[2017-04-05] MEDS: PHARMACY COMMUNICATION ORDER MC SCH (22:43)
[2017-04-06] MEDS: IPRATROPIUM/ALBUTEROL 0.5-2.5 MG/3 ML AMPUL NEB PRN (04:06)
[2017-04-06] MEDS ORDERED: EPOETIN ALFA 10,000 UNIT in SYRINGE, DISPOSABLE, 1 EACH IV PRN (05:00)
[2017-04-06] MEDS ORDERED: HEPARIN SOD (PORCINE) 1,000 UNIT/ML 10 ML VIAL IV PRN (05:00)
[2017-04-06] MEDS ORDERED: EPOETIN ALFA INJ 20000 UNIT/1 ML VIAL (RENAL) IV PRN (05:00)
[2017-04-06] MEDS: HYDRALAZINE HCL 50 MG TABLET PO SCH (05:48)
[2017-04-06] MEDS: BENZONATATE 100 MG CAPSULE PO SCH (06:14)
[2017-04-06 06:56] LABS: BASOPHILS % (AUTO) 0.8 % (0-2); EOSINOPHILS % (AUTO) 0.4 % (0-6); HEMOGLOBIN 9.9 g/dL (12.0-15.5); HGB HCT DIFFERENCE 0.7; LYMPHOCYTES % (AUTO) 13.7 % (13-45); MEAN CORPUSCULAR HEMOGLOBIN 30.2 pg (27.0-33.4); MEAN CORPUSCULAR HGB CONC 34.1 g/dL (32.0-36.0); MEAN CORPUSCULAR VOLUME 89 fl (80-97); MONOCYTES % (AUTO) 6.4 % (3-13); RED BLOOD COUNT 3.27 10^6/uL (3.72-5.28); RED CELL DISTRIBUTION WIDTH 18.3 % (11.5-14.0); SEGMENTED NEUTROPHILS % (AUTO) 78.7 % (42-78); WHITE BLOOD COUNT 7.5 10^3/uL (4.0-10.5)
[2017-04-06 06:57] LABS: ABSOLUTE BASOPHILS # (AUTO) 0.8 10^3/uL (0.0-0.2); ABSOLUTE EOSINOPHILS # (AUTO) 0.4 10^3/uL (0.0-0.6); ABSOLUTE LYMPHOCYTES (AUTO) 13.7 10^3/uL (0.5-4.7); ABSOLUTE MONOCYTES (AUTO) 6.4 10^3/uL (0.1-1.4); ABSOLUTE NEUT (AUTO) 78.7 10^3/uL (1.7-8.2)
[2017-04-06 07:01] LABS: ANION GAP 12 (5-19); BLOOD UREA NITROGEN 36 mg/dL (7-20); CALCIUM 9.3 mg/dL (8.4-10.2); CARBON DIOXIDE 28 mmol/L (22-30); CHLORIDE 96 mmol/L (98-107); CREATININE RESULT 4.17 mg/dL (0.52-1.25); GLUCOSE 147 mg/dL (75-110); POTASSIUM 4.5 mmol/L (3.6-5.0); SODIUM 136.3 mmol/L (137-145)
[2017-04-06] MEDS: PROMETHAZINE HCL 25 MG TABLET PO PRN (09:18)
[2017-04-06] MEDS: OXYCODONE HCL IR 5 MG TABLET PO PRN ×2 (09:20→21:20)
[2017-04-06] MEDS ORDERED: EPOETIN ALFA 5,000 UNIT in SYRINGE, DISPOSABLE, 1 EACH IV PRN (09:22)
[2017-04-06] MEDS ORDERED: LORAZEPAM 1 MG TABLET PO PRN (11:42)
[2017-04-06] MEDS ORDERED: BENZONATATE 100 MG CAPSULE PO PRN (11:49)
[2017-04-06] MEDS ORDERED: PROMETHAZINE HCL 25 MG TABLET PO PRN (12:19)
[2017-04-06] MEDS: LIDOCAINE 5% (700 MG) TRANSDERMAL ADH..PATCH TP SCH (13:40)
--- NOTE | 2017-04-06 14:10 | PDOC PROGRESS REPORT ---
Subjective Progress Note for:: 04/06/17 Subjective:: Patient has just received her final dialysis session when I see her. Plan is to have patient go to inpatient hospice on Sunday. Patient reports that she did not sleep well overnight secondary to shortness of breath and pain. Due to this patient is amenable to signing for inpatient status now for hospice to allow us to begin making patient more comfortable, with the risk of altering her mental status. Physical Exam Vital Signs: Temp Pulse Resp BP Pulse Ox 98.7 F 104 H 22 H 137/80 H 97 04/06/17 07:07 04/06/17 07:07 04/06/17 07:07 04/06/17 07:07 04/06/17 07:07 Intake & Output 04/05/17 04/06/17 04/07/17 06:59 06:59 06:59 Intake Total 1020 572 Output Total 900 55 600 Balance 120 517 -600 Weight 63.4 kg 62.1 kg Exam: General: A+Ox3, moderate-severe respiratory distress, moderate tachypnea, 3 word dyspnea HEENT: AT/NC, PERRL, EOMI, oropharynx is moist, pink, no scleral icterus, no conjunctival injection Neck: No JVD, trachea midline Chest: Right upper chest lars cath, right sided chest tube, diminished right lung, diminished left lower lung, patient has breath sounds only in her right upper lobe and left upper lobe anteriorly CV: Tachycardic, regular rate and rhythm, normal S1 and S2, no rub or gallop Abdomen: Soft, nontender to palpation, mildly distended, active bowel sounds; no rebound, rigidity, or guarding Extremities: No cyanosis, clubbing or edema Neuro: Cranial nerves II through XII are grossly intact without focal deficits; awake alert and oriented x3 Psych: Normal mood and affect Results Laboratory Results: 04/06/17 05:53 04/06/17 05:53 04/06/17 04/06/17 05:53 05:53 WBC 7.5 RBC 3.27 L Hgb 9.9 L Hct 29.0 L MCV 89 MCH 30.2 MCHC 34.1 RDW 18.3 H Plt Count 261 Seg Neutrophils % 78.7 H Lymphocytes % 13.7 Monocytes % 6.4 Eosinophils % 0.4 Basophils % 0.8 Absolute Neutrophils 78.7 H Absolute Lymphocytes 13.7 H Absolute Monocytes 6.4 H Absolute Eosinophils 0.4 Absolute Basophils 0.8 H Sodium 136.3 L Potassium 4.5 Chloride 96 L Carbon Dioxide 28 Anion Gap 12 BUN 36 H Creatinine 4.17 H Est GFR ( Amer) 13 L Est GFR (Non-Af Amer) 10 L Glucose 147 H Calcium 9.3 Impressions: Chest X-Ray 04/03/17 00:00 IMPRESSION: NO CHANGE IN APPEARANCE OF THE CHEST. Chest CT 04/04/17 00:00 IMPRESSION: Increase in loculated right pleural fluid compared to 02/27/2017. Today's study was performed immediately after of contrast esophagram. There is no leakage of contrast into the right chest. There is a 5 to 7 cm long high- grade narrowing of the lower 3rd of the esophagus, inferior to the level of the alhaji. These findings were discussed with Dr. Laurent Esophagus X-Ray 04/04/17 00:00 IMPRESSION: Persistent high-grade narrowing of the distal 3rd of the esophagus. No extravasation identified under fluoro. KUB X-Ray 04/04/17 00:00 IMPRESSION: Nonobstructive bowel gas pattern Assessment & Plan - Diagnosis (1) Adenocarcinoma Is this a current diagnosis for this admission?: Yes (2) Acute hypoxemic respiratory failure Is this a current diagnosis for this admission?: Yes (3) Anemia in chronic renal disease Qualifiers: Chronic kidney disease stage: on chronic dialysis Qualified Code(s): N18.6 - End stage renal disease; D63.1 - Anemia in chronic kidney disease; Z99.2 - Dependence on renal dialysis Is this a current diagnosis for this admission?: Yes (4) ESRD (end stage renal disease) on dialysis Is this a current diagnosis for this admission?: Yes (5) General weakness Is this a current diagnosis for this admission?: Yes (6) Pneumonia involving left lung Qualifiers: Pneumonia type: due to unspecified organism Lung location: unspecified part of lung Qualified Code(s): J18.9 - Pneumonia, unspecified organism Is this a current diagnosis for this admission?: Yes (7) Constipation Qualifiers: Constipation type: unspecified constipation type Qualified Code(s): K59.00 - Constipation, unspecified Is this a current diagnosis for this admission?: Yes (8) Esophageal stricture Is this a current diagnosis for this admission?: Yes (9) Pleural effusion on right Is this a current diagnosis for this admission?: Yes (10) HLD (hyperlipidemia) Qualifiers: Hyperlipidemia type: unspecified Qualified Code(s): E78.5 - Hyperlipidemia , unspecified Is this a current diagnosis for this admission?: Yes (11) HTN (hypertension) Qualifiers: Hypertension type: essential hypertension Qualified Code(s): I10 - Essential (primary) hypertension Is this a current diagnosis for this admission?: Yes (12) LESLIE (obstructive sleep apnea) Is this a current diagnosis for this admission?: Yes (13) Type 1 diabetes mellitus with nephropathy Is this a current diagnosis for this admission?: Yes (14) hx of esophageal perforation Is this a current diagnosis for this admission?: Yes (15) DNR (do not resuscitate) Is this a current diagnosis for this admission?: Yes - Plan Summary Plan Summary: This is an unfortunate 76-year-old -[place] female who had an esophageal perforation with subsequent mediastinitis, DIC, sepsis, acute kidney injury leading to need for hemodialysis, and then 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 Patient was initially placed on imipenem with some improvement, but after discussion with patient and her gradual worsening pleural effusions, patient elected to go to inpatient hospice. Patient is currently pending transfer, and is firmly resolved to engage in the hospice process. She is surrounded by her "scientology family". Patient will be made comfort measures at this time pending her transfer to inpatient hospice due to her now worsening shortness of breath and chest pain. She will be placed on morphine, Ativan, and transition to a medical floor bed. Patient is already a DNR.
--- NOTE | 2017-04-06 15:37 | PDOC PROGRESS REPORT ---
Subjective Progress Note for:: 04/06/17 Subjective:: Patient is seen today on dialysis. She is still short of breath. She had a very rough night with her breathing last night. She is still complaining of dysphagia to solids. Barium swallow done earlier shows stenosis of the distal esophagus. Denies any history of chest pains, fever chills. She says there is not much of drainage coming out of the Pleurx tube. I had a talk with Dr. Rocha/hospitalist yesterday.She has appraised the patient of her current status and patient has opted for hospice/comfort care. She is in the process of being transferred to a snf in [place] for the same.However she is once couple of days here to have her home and other interest taken care of as she has very little family around. Currently undergoing dialysis without any issues. Vital signs are stable. Orders were discussed with the treating dialysis nurse Ariana. Physical Exam Vital Signs: Temp Pulse Resp BP Pulse Ox 98.7 F 104 H 22 H 137/80 H 97 04/06/17 07:07 04/06/17 07:07 04/06/17 07:07 04/06/17 07:07 04/06/17 07:07 Intake & Output 04/05/17 04/06/17 04/07/17 06:59 06:59 06:59 Intake Total 1020 572 Output Total 900 55 600 Balance 120 517 -600 Weight 63.4 kg 62.1 kg General appearance: PRESENT: mild distress Respiratory exam: PRESENT: clear to auscultation jose, decreased breath sounds - Right lungs.. ABSENT: rhonchi, stridor Cardiovascular exam: PRESENT: +S1, +S2, systolic murmur GI/Abdominal exam: PRESENT: normal bowel sounds, soft. ABSENT: distended, tenderness Extremities exam: ABSENT: pedal edema Neurological exam: PRESENT: alert, awake, oriented to person, oriented to place , oriented to time Results Laboratory Results: 04/06/17 05:53 04/06/17 05:53 04/06/17 04/06/17 05:53 05:53 WBC 7.5 RBC 3.27 L Hgb 9.9 L Hct 29.0 L MCV 89 MCH 30.2 MCHC 34.1 RDW 18.3 H Plt Count 261 Seg Neutrophils % 78.7 H Lymphocytes % 13.7 Monocytes % 6.4 Eosinophils % 0.4 Basophils % 0.8 Absolute Neutrophils 78.7 H Absolute Lymphocytes 13.7 H Absolute Monocytes 6.4 H Absolute Eosinophils 0.4 Absolute Basophils 0.8 H Sodium 136.3 L Potassium 4.5 Chloride 96 L Carbon Dioxide 28 Anion Gap 12 BUN 36 H Creatinine 4.17 H Est GFR ( Amer) 13 L Est GFR (Non-Af Amer) 10 L Glucose 147 H Calcium 9.3 Impressions: Chest X-Ray 04/03/17 00:00 IMPRESSION: NO CHANGE IN APPEARANCE OF THE CHEST. Chest CT 04/04/17 00:00 IMPRESSION: Increase in loculated right pleural fluid compared to 02/27/2017. Today's study was performed immediately after of contrast esophagram. There is no leakage of contrast into the right chest. There is a 5 to 7 cm long high- grade narrowing of the lower 3rd of the esophagus, inferior to the level of the alhaji. These findings were discussed with Dr. Laurent Esophagus X-Ray 04/04/17 00:00 IMPRESSION: Persistent high-grade narrowing of the distal 3rd of the esophagus. No extravasation identified under fluoro. KUB X-Ray 04/04/17 00:00 IMPRESSION: Nonobstructive bowel gas pattern Assessment & Plan - Diagnosis (1) ESRD (end stage renal disease) on dialysis Is this a current diagnosis for this admission?: Yes Plan: Patient seen on hemodialysis. She is undergoing dialysis without any issues. Is being supervised to ensure safe and smooth procedure. Vital signs are stable. Plan to remove 1 l fluid. Orders were discussed with the treating nurse.Since the patient has been diagnosed with metastatic CA of the colon as evidenced by adenocarcinoma in the pleural effusion on the right side and given her deteriorating condition she has opted for hospice/comfort care.Today's dialysis is going to be her last one. She is being transferred to [facility] for comfort care/hospice. She understands implications. (2) Anemia in chronic renal disease Qualifiers: Chronic kidney disease stage: on chronic dialysis Qualified Code(s): N18.6 - End stage renal disease; D63.1 - Anemia in chronic kidney disease; Z99.2 - Dependence on renal dialysis Is this a current diagnosis for this admission?: Yes Plan: I have ordered erythropoietin. (3) Pneumonia involving left lung Qualifiers: Pneumonia type: due to unspecified organism Lung location: unspecified part of lung Qualified Code(s): J18.9 - Pneumonia, unspecified organism Is this a current diagnosis for this admission?: Yes Plan: Patient on antibiotics. Has adenocarcinoma in the lungs is indicative of likely metastatic lesion from that and thereby indicating of stage IV disease.Patient has opted for comfort care/hospice. Patient being discharged to snf in [place] and has refused any further dialysis. (4) Diabetes Qualifiers: Diabetes mellitus type: type 2 Diabetes mellitus complication status: with kidney complications Diabetes mellitus rn long term care insulin use: with rn long term care use Chronic kidney disease stage: on chronic dialysis Is this a current diagnosis for this admission?: Yes (5) Hypertension associated with diabetes Plan: Relatively well controlled. Monitor. (6) Pleural effusion on right Is this a current diagnosis for this admission?: Yes Plan: Has adenocarcinoma retrieved from the pleural effusion. Likely stage IV metastatic CA of the colon.Patient has opted for comfort care. (7) LESLIE (obstructive sleep apnea) Is this a current diagnosis for this admission?: Yes (8) Esophageal stricture Is this a current diagnosis for this admission?: Yes Plan: Barium swallow shows stricture in the distal esophagus. Patient on liquid/pur ed diet..
[2017-04-06] MEDS: PHARMACY COMMUNICATION ORDER MC SCH ×2 (21:21→21:22)
--- NOTE | 2017-04-07 00:03 | Progress Note ---
Provider Note Provider Note: Palliative care follow up visit: 04/06/17 1:40- 2:15 PM S: Mrs. Mercedes has completed dialysis today. She states she had a very bad night and had difficulty breathing all night. She also had pain in her left shoulder area. During dialysis the nurse massaged ehr shoulder and it helped her. SHe is still unable to eat more than a very few bites of soft fruit. She takes small sips of liquids. Today, she is visiting with [facility] friends from [place]. SHe is alert and oriented. She states she still wants to go to hospice care center on 04/08 or , but she is happy to be able to stay here at hospital for a few more days. She has resigned to her prognosis but is still able to enjoy her [place] family who come to visit.' She reports that she had a long talk with [facility] sister who is caring for her mother in [facility] and she is grateful that her sister is able to do this. She feels bad that she is too ill to hlep with er mothers care. She says she knows she is declining quickly and after the respiratory distress she had last night she is realizing that there is a lot of disease in her lungs. O: As above. patient still has conversational dyspnea, but she can say a few more words between breathes today and color is better. Still unable to swallow, covers her dysphagia well with statements to friends about not being hungry. VSS, no fever, has needed morphine for respiratory struggle last night. NO edema, abd tender to palpation. A/P; Lung pathology causing pleural effusion, cancer cells present in lungs ( adenocarcinoma, history colon cancer). Increased dyspnea requiring morphine. Increased inability to swallow due to espophageal strictures. Taking only small bites and sips ESRD: completed her last hemo-dialysis today per her decision. Plans to go to hospice care center in a couple of days, aware of terminality of her condition. Hospice liason is aware and has sent info to [facility]. I asked patient to sign hospice consent today since she has no family or HCPOA and may not be able to sign when she is ready for transfer. Discussed with Dr. Rocha who feels patients is near. SHe has changed her to comfort measures and ordered morphine for prn use.
[2017-04-07] MEDS: OXYCODONE HCL IR 5 MG TABLET PO PRN (03:40)
[2017-04-07] MEDS ORDERED: OXYCODONE HCL IR 5 MG TABLET PO PRN (09:23)
[2017-04-07] MEDS: LIDOCAINE 5% (700 MG) TRANSDERMAL ADH..PATCH TP SCH (09:30)
[2017-04-07] MEDS ORDERED: ZOLPIDEM TARTRATE 5 MG TABLET PO PRN (09:57)
[2017-04-07] MEDS: MORPHINE SULFATE 10 MG/5 ML ORAL SOLUTION UDCUP PO PRN ×3 (10:06→22:10)
--- NOTE | 2017-04-07 14:08 | PDOC PROGRESS REPORT ---
Subjective Progress Note for:: 04/07/17 Subjective:: Patient complains she did not get any sleep last night. She reports a neck spasm and left upper shoulder and back pain. She admits to shortness of breath and chest discomfort. She is firm and pleased with her decision to go to inpatient hospice. Patient denies abdominal pain, nausea, vomiting, fevers, chills, diarrhea, constipation, headache. Physical Exam Vital Signs: Temp Pulse Resp BP Pulse Ox 98.7 F 104 H 22 H 137/80 H 96 04/06/17 07:07 04/06/17 07:07 04/06/17 07:07 04/06/17 07:07 04/06/17 17:27 Intake & Output 04/06/17 04/07/17 04/08/17 06:59 06:59 06:59 Intake Total 572 Output Total 55 600 50 Balance 517 -600 -50 Weight 62.1 kg Exam: General: A+Ox3, moderate-severe respiratory distress, moderate tachypnea, 3 word dyspnea HEENT: AT/NC, PERRL, EOMI, oropharynx is moist, pink, no scleral icterus, no conjunctival injection Neck: No JVD, trachea midline Chest: Right upper chest lars cath, right sided chest tube, diminished right lung to upper lobe, diminished left lower lung to mid lung CV: Tachycardic, regular rate and rhythm, normal S1 and S2, no rub or gallop Abdomen: Soft, nontender to palpation, mildly distended, active bowel sounds; no rebound, rigidity, or guarding Extremities: No cyanosis, clubbing or edema Neuro: Cranial nerves II through XII are grossly intact without focal deficits; awake alert and oriented x3 Psych: Normal mood and affect Results Laboratory Results: 04/06/17 05:53 04/06/17 05:53 Impressions: Chest X-Ray 04/03/17 00:00 IMPRESSION: NO CHANGE IN APPEARANCE OF THE CHEST. Chest CT 04/04/17 00:00 IMPRESSION: Increase in loculated right pleural fluid compared to 02/27/2017. Today's study was performed immediately after of contrast esophagram. There is no leakage of contrast into the right chest. There is a 5 to 7 cm long high- grade narrowing of the lower 3rd of the esophagus, inferior to the level of the alhaji. These findings were discussed with Dr. Laurent Esophagus X-Ray 04/04/17 00:00 IMPRESSION: Persistent high-grade narrowing of the distal 3rd of the esophagus. No extravasation identified under fluoro. KUB X-Ray 04/04/17 00:00 IMPRESSION: Nonobstructive bowel gas pattern Assessment & Plan - Diagnosis (1) Adenocarcinoma Is this a current diagnosis for this admission?: Yes (2) Acute hypoxemic respiratory failure Is this a current diagnosis for this admission?: Yes (3) Anemia in chronic renal disease Qualifiers: Chronic kidney disease stage: on chronic dialysis Qualified Code(s): N18.6 - End stage renal disease; D63.1 - Anemia in chronic kidney disease; Z99.2 - Dependence on renal dialysis Is this a current diagnosis for this admission?: Yes (4) ESRD (end stage renal disease) on dialysis Is this a current diagnosis for this admission?: Yes (5) General weakness Is this a current diagnosis for this admission?: Yes (6) Pneumonia involving left lung Qualifiers: Pneumonia type: due to unspecified organism Lung location: unspecified part of lung Qualified Code(s): J18.9 - Pneumonia, unspecified organism Is this a current diagnosis for this admission?: Yes (7) Constipation Qualifiers: Constipation type: unspecified constipation type Qualified Code(s): K59.00 - Constipation, unspecified Is this a current diagnosis for this admission?: Yes (8) Esophageal stricture Is this a current diagnosis for this admission?: Yes (9) Pleural effusion on right Is this a current diagnosis for this admission?: Yes (10) HLD (hyperlipidemia) Qualifiers: Hyperlipidemia type: unspecified Qualified Code(s): E78.5 - Hyperlipidemia , unspecified Is this a current diagnosis for this admission?: Yes (11) HTN (hypertension) Qualifiers: Hypertension type: essential hypertension Qualified Code(s): I10 - Essential (primary) hypertension Is this a current diagnosis for this admission?: Yes (12) LESLIE (obstructive sleep apnea) Is this a current diagnosis for this admission?: Yes (13) Type 1 diabetes mellitus with nephropathy Is this a current diagnosis for this admission?: Yes (14) hx of esophageal perforation Is this a current diagnosis for this admission?: Yes (15) DNR (do not resuscitate) Is this a current diagnosis for this admission?: Yes - Plan Summary Plan Summary: Patient pending bed at inpatient hospice for Sunday. Have added Valium 2 mg p.o. every 4hp and Ambien 2.5mg p.o. at bedtime prn
[2017-04-07] MEDS: DIAZEPAM 2 MG TABLET PO PRN (22:11)
[2017-04-08] MEDS: MORPHINE SULFATE 10 MG/5 ML ORAL SOLUTION UDCUP PO PRN ×3 (03:37→22:23)
[2017-04-08] MEDS: GUAIFENESIN SYRP 200 MG/10 ML UDC PO PRN ×2 (08:57→22:28)
[2017-04-08] MEDS: LIDOCAINE 5% (700 MG) TRANSDERMAL ADH..PATCH TP SCH (09:03)
--- NOTE | 2017-04-08 16:15 | PDOC PROGRESS REPORT ---
Subjective Progress Note for:: 04/08/17 Subjective:: Patient reports she slept a small amount last night. She reports her pain is currently well-controlled with morphine. She admits to shortness of breath and chest discomfort. She is firm and pleased with her decision to go to inpatient hospice. Patient denies abdominal pain, nausea, vomiting, fevers, chills, diarrhea, constipation, headache. Physical Exam Vital Signs: Temp Pulse Resp BP Pulse Ox 98.7 F 104 H 22 H 137/80 H 96 04/06/17 07:07 04/06/17 07:07 04/06/17 07:07 04/06/17 07:07 04/06/17 17:27 Intake & Output 04/07/17 04/08/17 04/09/17 06:59 06:59 06:59 Intake Total 318 Output Total 600 50 Balance -600 268 Exam: General: A+Ox3, moderate respiratory distress, mild-mod tachypnea HEENT: AT/NC, PERRL, EOMI, oropharynx is moist, pink, no scleral icterus, no conjunctival injection Neck: No JVD, trachea midline Chest: Right upper chest lars cath, right sided chest tube, diminished right lung to upper lobe, diminished left lower lung to mid lung CV: Tachycardic, regular rate and rhythm, normal S1 and S2, no rub or gallop Abdomen: Soft, nontender to palpation, mildly distended, active bowel sounds; no rebound, rigidity, or guarding Extremities: No cyanosis, clubbing or edema Neuro: Cranial nerves II through XII are grossly intact without focal deficits; awake alert and oriented x3 Psych: Normal mood and affect Results Laboratory Results: 04/06/17 05:53 04/06/17 05:53 04/04/17 14:00 Pleural Fluid - Right Pleural Effusion Gram Stain - Final Impressions: Chest X-Ray 04/03/17 00:00 IMPRESSION: NO CHANGE IN APPEARANCE OF THE CHEST. Chest CT 04/04/17 00:00 IMPRESSION: Increase in loculated right pleural fluid compared to 02/27/2017. Today's study was performed immediately after of contrast esophagram. There is no leakage of contrast into the right chest. There is a 5 to 7 cm long high- grade narrowing of the lower 3rd of the esophagus, inferior to the level of the alhaji. These findings were discussed with Dr. Laurent Esophagus X-Ray 04/04/17 00:00 IMPRESSION: Persistent high-grade narrowing of the distal 3rd of the esophagus. No extravasation identified under fluoro. KUB X-Ray 04/04/17 00:00 IMPRESSION: Nonobstructive bowel gas pattern Assessment & Plan - Diagnosis (1) Adenocarcinoma Is this a current diagnosis for this admission?: Yes (2) Acute hypoxemic respiratory failure Is this a current diagnosis for this admission?: Yes (3) Anemia in chronic renal disease Qualifiers: Chronic kidney disease stage: on chronic dialysis Qualified Code(s): N18.6 - End stage renal disease; D63.1 - Anemia in chronic kidney disease; Z99.2 - Dependence on renal dialysis Is this a current diagnosis for this admission?: Yes (4) ESRD (end stage renal disease) on dialysis Is this a current diagnosis for this admission?: Yes (5) General weakness Is this a current diagnosis for this admission?: Yes (6) Pneumonia involving left lung Qualifiers: Pneumonia type: due to unspecified organism Lung location: unspecified part of lung Qualified Code(s): J18.9 - Pneumonia, unspecified organism Is this a current diagnosis for this admission?: Yes (7) Constipation Qualifiers: Constipation type: unspecified constipation type Qualified Code(s): K59.00 - Constipation, unspecified Is this a current diagnosis for this admission?: Yes (8) Esophageal stricture Is this a current diagnosis for this admission?: Yes (9) Pleural effusion on right Is this a current diagnosis for this admission?: Yes (10) HLD (hyperlipidemia) Qualifiers: Hyperlipidemia type: unspecified Qualified Code(s): E78.5 - Hyperlipidemia , unspecified Is this a current diagnosis for this admission?: Yes (11) HTN (hypertension) Qualifiers: Hypertension type: essential hypertension Qualified Code(s): I10 - Essential (primary) hypertension Is this a current diagnosis for this admission?: Yes (12) LESLIE (obstructive sleep apnea) Is this a current diagnosis for this admission?: Yes (13) Type 1 diabetes mellitus with nephropathy Is this a current diagnosis for this admission?: Yes (14) hx of esophageal perforation Is this a current diagnosis for this admission?: Yes (15) DNR (do not resuscitate) Is this a current diagnosis for this admission?: Yes - Plan Summary Plan Summary: Patient has elected to go to inpatient hospice at [facility]. Patient will not continue her hemodialysis there. Patient is from in this decision and plan is for transfer to the inpatient care facility tomorrow. Continue morphine , valium, ambien.
--- NOTE | 2017-04-08 17:53 | PDOC DISCHARGE SUMMARY ---
General - Admit/Disc Date/PCP Admission Date/Primary Care Provider: 03/31/17 22:02 Discharge Date: 04/09/17 - Discharge Diagnosis (1) Adenocarcinoma Is this a current diagnosis for this admission?: Yes (2) Acute hypoxemic respiratory failure Is this a current diagnosis for this admission?: Yes (3) Anemia in chronic renal disease Is this a current diagnosis for this admission?: Yes (4) ESRD (end stage renal disease) on dialysis Is this a current diagnosis for this admission?: Yes (5) General weakness Is this a current diagnosis for this admission?: Yes (6) Pneumonia involving left lung Is this a current diagnosis for this admission?: Yes (7) Constipation Is this a current diagnosis for this admission?: Yes (8) Esophageal stricture Is this a current diagnosis for this admission?: Yes (9) Pleural effusion on right Is this a current diagnosis for this admission?: Yes (10) HLD (hyperlipidemia) Is this a current diagnosis for this admission?: Yes (11) HTN (hypertension) Is this a current diagnosis for this admission?: Yes (12) LESLIE (obstructive sleep apnea) Is this a current diagnosis for this admission?: Yes (13) Type 1 diabetes mellitus with nephropathy Is this a current diagnosis for this admission?: Yes (14) hx of esophageal perforation Is this a current diagnosis for this admission?: Yes (15) DNR (do not resuscitate) Is this a current diagnosis for this admission?: Yes - Additional Information Resuscitation Status: Do Not Resuscitate Home Medications: Amlodipine Besylate [Norvasc 10 mg Tablet] 10 mg PO DAILY 04/01/17 Atorvastatin Calcium [Lipitor 10 mg Tablet] 10 mg PO QHS 04/01/17 Doxazosin Mesylate [Cardura 2 mg Tablet] 2 mg PO DAILY 04/01/17 Hydralazine HCl [Apresoline 50 mg Tablet] 50 mg PO TID 04/01/17 Insulin Glargine,Hum.rec.anlog [Yadira Flor] 10 units SUBCUT QHS 04/01/17 Ranitidine HCl [Zantac] 300 mg PO BID 04/01/17 Sodium Bicarbonate [Sodium Bicarbonate 650 mg Tablet] 650 mg PO DAILY 04/01/17 History of Present Illness History of Present Illness: SOPHY GOMEZ is a 76 year old -[place] female, with a somewhat complicated medical history so far this year, including transfer from our facility [facility] in August of this year for perforated esophagus. Hospitalized there August 10 - September 06 of this year, with placement of esophageal stent with subsequent exchange along with PEG tube insertion, which is since been removed. He was subsequently hospitalized at our facility February 28- of this year and transferred back to [facility] with diagnoses included loculated pleural effusion coming along with bilateral pleural effusion. Copies of the history and physical and transfer summary have been reviewed. Was discharged invited [facility] 8 days ago. According to the patient, she underwent what sounds to be thoracentesis on the left for pleural effusion, along with placement of a Pleurx catheter on the right which she continues to manage herself, draining this into a small bottle attached to her leg each day. Discharge summary has been requested. Of note, patient has underlying chronic kidney disease, but has been on hemodialysis since her initial stay at [facility]. She normally is on a Sunday schedule. She was actually transferred from the dialysis center to our emergency room today after only half treatment due to shortness of breath. Normally makes only a small amount of urine each day. Starting last night, complaints of increased shortness of breath with associated cough. Cough so severe that she vomited one time. No fever chills or diarrhea. Chest x-ray this evening in the emergency room revealed what appears to be left-sided pneumonia, with bibasilar opacities, possible effusions. Of note, patient has no underlying chronic pulmonary disease other than obstructive sleep apnea, with noncompliance with the facemask due to discomfort. Hospital Course Hospital Course: Patient had worsening of her pleural effusions and overall respiratory status. In light of one of her effusions being malignant, patient made the choice to stop hemodialysis and go to inpatient hospice. Patient was accepted by [facility] and has already signed paperwork for admission. We have attempted to make her comfortable and patient is pending transfer to [facility] in the morning. Physical Exam Vital Signs: Temp Pulse Resp BP Pulse Ox 98.6 F 101 H 20 154/81 H 98 04/07/17 19:54 04/07/17 19:54 04/07/17 19:54 04/07/17 19:54 04/07/17 19:54 Intake & Output 04/07/17 04/08/17 04/09/17 06:59 06:59 06:59 Intake Total 318 100 Output Total 600 50 50 Balance -600 268 50 Exam: General: A+Ox3, moderate respiratory distress, mild-mod tachypnea HEENT: AT/NC, PERRL, EOMI, oropharynx is moist, pink, no scleral icterus, no conjunctival injection Neck: No JVD, trachea midline Chest: Right upper chest lars cath, right sided chest tube, diminished right lung to upper lobe, diminished left lower lung to mid lung CV: Tachycardic, regular rate and rhythm, normal S1 and S2, no rub or gallop Abdomen: Soft, nontender to palpation, mildly distended, active bowel sounds; no rebound, rigidity, or guarding Extremities: No cyanosis, clubbing or edema Neuro: Cranial nerves II through XII are grossly intact without focal deficits; awake alert and oriented x3 Psych: Normal mood and affect Results Laboratory Results: 04/06/17 05:53 04/06/17 05:53 04/04/17 14:00 Pleural Fluid - Right Pleural Effusion Gram Stain - Final Impressions: Chest X-Ray 04/03/17 00:00 IMPRESSION: NO CHANGE IN APPEARANCE OF THE CHEST. Chest CT 04/04/17 00:00 IMPRESSION: Increase in loculated right pleural fluid compared to 02/27/2017. Today's study was performed immediately after of contrast esophagram. There is no leakage of contrast into the right chest. There is a 5 to 7 cm long high- grade narrowing of the lower 3rd of the esophagus, inferior to the level of the alhaji. These findings were discussed with Dr. Laurent Esophagus X-Ray 04/04/17 00:00 IMPRESSION: Persistent high-grade narrowing of the distal 3rd of the esophagus. No extravasation identified under fluoro. KUB X-Ray 04/04/17 00:00 IMPRESSION: Nonobstructive bowel gas pattern Qualifiers PATEINT BEING DISCHARGED WITH ANY OF THE FOLLOWING DIAGNOSIS?: No Plan Time Spent: Less than 30 Minutes
[2017-04-08] MEDS: DIAZEPAM 2 MG TABLET PO PRN (18:13)
[2017-04-08] MEDS ORDERED: SCOPOLAMINE HYDROBROMIDE 1.5 MG PATCH.TD72 TD ONE (18:20)
[2017-04-08] MEDS ORDERED: SCOPOLAMINE HYDROBROMIDE 1.5 MG PATCH.TD72 ONE (18:44)
[2017-04-08] MEDS: PHARMACY COMMUNICATION ORDER MC SCH (22:00)
[2017-04-09] MEDS: MORPHINE SULFATE 10 MG/5 ML ORAL SOLUTION UDCUP PO PRN ×3 (02:53→11:22)
[2017-04-09 08:20] VITALS: BP 159/72
[2017-04-09] MEDS: DIAZEPAM 2 MG TABLET PO PRN (09:09)
[2017-04-09] MEDS: LIDOCAINE 5% (700 MG) TRANSDERMAL ADH..PATCH TP SCH (09:10)
--- NOTE | 2017-04-09 13:19 | PDOC PROGRESS REPORT ---
Subjective Progress Note for:: 04/09/17 Subjective:: Patient reportedly going to hospice inpatient. Patient denies any specific complaints. Denies shortness of breath nausea or vomiting. Pleural fluid reportedly with adenocarcinoma from [facility]. Physical Exam Vital Signs: Temp Pulse Resp BP Pulse Ox 98.1 F 97 22 H 159/72 H 91 L 04/09/17 07:51 04/09/17 07:51 04/09/17 07:51 04/09/17 07:51 04/09/17 07:51 Intake & Output 04/08/17 04/09/17 04/10/17 06:59 06:59 06:59 Intake Total 318 300 Output Total 50 50 50 Balance 268 250 -50 General appearance: PRESENT: no acute distress, other - Nasal cannula oxygen Head exam: PRESENT: normocephalic Eye exam: PRESENT: EOMI Mouth exam: PRESENT: moist, neck supple Neck exam: ABSENT: JVD Respiratory exam: PRESENT: decreased breath sounds - Lower lung hood bilateral , rhonchi - Few bilateral Cardiovascular exam: PRESENT: RRR. ABSENT: gallop GI/Abdominal exam: PRESENT: hypoactive bowel sounds, soft. ABSENT: distended Extremities exam: PRESENT: other - Trace pretibial edema Neurological exam: PRESENT: alert, awake, oriented to situation Skin exam: PRESENT: dry, warm. ABSENT: cyanosis Results Laboratory Results: 04/06/17 05:53 04/06/17 05:53 04/04/17 14:00 Pleural Fluid - Right Pleural Effusion Gram Stain - Final 04/04/17 14:00 Pleural Fluid - Right Pleural Effusion Body Fluid Culture - Final Acinetobacter Species Stenotrophomonas Maltophilia No Anaerobic Organisms Impressions: Chest X-Ray 04/03/17 00:00 IMPRESSION: NO CHANGE IN APPEARANCE OF THE CHEST. Chest CT 04/04/17 00:00 IMPRESSION: Increase in loculated right pleural fluid compared to 02/27/2017. Today's study was performed immediately after of contrast esophagram. There is no leakage of contrast into the right chest. There is a 5 to 7 cm long high- grade narrowing of the lower 3rd of the esophagus, inferior to the level of the alhaji. These findings were discussed with Dr. Laurent Esophagus X-Ray 04/04/17 00:00 IMPRESSION: Persistent high-grade narrowing of the distal 3rd of the esophagus. No extravasation identified under fluoro. KUB X-Ray 04/04/17 00:00 IMPRESSION: Nonobstructive bowel gas pattern Assessment & Plan - Diagnosis (1) Adenocarcinoma Is this a current diagnosis for this admission?: Yes (2) Pleural effusion Is this a current diagnosis for this admission?: Yes (3) Pneumonia involving left lung Qualifiers: Pneumonia type: due to unspecified organism Lung location: unspecified part of lung Qualified Code(s): J18.9 - Pneumonia, unspecified organism Is this a current diagnosis for this admission?: Yes (4) ESRD (end stage renal disease) on dialysis Is this a current diagnosis for this admission?: Yes (5) Diabetes Qualifiers: Diabetes mellitus type: type 2 Diabetes mellitus complication status: with kidney complications Diabetes mellitus skilled nursing insulin use: with intermediate designer use Chronic kidney disease stage: on chronic dialysis Is this a current diagnosis for this admission?: Yes (6) HLD (hyperlipidemia) Qualifiers: Hyperlipidemia type: unspecified Qualified Code(s): E78.5 - Hyperlipidemia , unspecified Is this a current diagnosis for this admission?: Yes (7) HTN (hypertension) Qualifiers: Hypertension type: essential hypertension Qualified Code(s): I10 - Essential (primary) hypertension Is this a current diagnosis for this admission?: Yes (8) LESLIE (obstructive sleep apnea) Is this a current diagnosis for this admission?: Yes - Time Time Spent with patient: 15-24 minutes - Plan Summary Plan Summary: Continue discharge plan to inpatient hospice today. Continue supportive care. Continue comfort measures.
== END 2017-04-09 14:32 | disposition hospice, inpatient (51) | DRG 193 ==
LOC: ER 15:25 → UNDOADMIN 20:01 → EH 20:01 → 3N 21:57 → EH 22:02
PROVIDERS: ADMIT Family Medicine; ATTEND Family Medicine
PROC: 3E0F73Z Introduction of Anti-inflammatory into Respiratory Tract, Via Natural or Artificial Opening (ICD-10-PCS; 2017-04-01)
PROC: 5A1D70Z Performance of Urinary Filtration, Intermittent, Less than 6 Hours Per Day (ICD-10-PCS; principal; 2017-04-02)
DX: J18.9 Pneumonia, unspecified organism (principal); J96.01 Acute respiratory failure with hypoxia; N18.6 End stage renal disease; C78.02 Secondary malignant neoplasm of left lung; J91.0 Malignant pleural effusion; I13.2 Hypertensive heart and chronic kidney disease with heart failure and with stage 5 chronic kidney disease, or end stage renal disease; E10.22 Type 1 diabetes mellitus with diabetic chronic kidney disease; I50.9 Heart failure, unspecified; D63.1 Anemia in chronic kidney disease; Z91.19 Patient's noncompliance with other medical treatment and regimen; Z99.2 Dependence on renal dialysis; G47.33 Obstructive sleep apnea (adult) (pediatric); E78.5 Hyperlipidemia, unspecified; M19.90 Unspecified osteoarthritis, unspecified site; Z85.038 Personal history of other malignant neoplasm of large intestine; Z66 Do not resuscitate; K59.00 Constipation, unspecified; K22.2 Esophageal obstruction; R01.1 Cardiac murmur, unspecified; R13.10 Dysphagia, unspecified; N25.89 Other disorders resulting from impaired renal tubular function; Z51.5 Encounter for palliative care; Z97.8 Presence of other specified devices; Z88.0 Allergy status to penicillin; Z88.8 Allergy status to other drugs, medicaments and biological substances; Z91.013 Allergy to seafood; Z88.2 Allergy status to sulfonamides; Z82.49 Family history of ischemic heart disease and other diseases of the circulatory system; Z83.3 Family history of diabetes mellitus; Z82.3 Family history of stroke
CPT/HCPCS: 36415; 51701; 71010; 71020; 71250; 74000; 74220; 80048; 80053; 81001; 82550; 82553; 82962; 83735; 84484; 85025; 87040; 87070; 87075; 87077; 87186; 87205; 93005; 93010; 94640; 94799; 99291; G8978-GP; G8979-GP; J0743; J1580; J1644; J1815; J1940; J1956; J3370; J3490; J7060; J7620; Q4081